=== PATIENT | male | born 1945 | race Caucasian/White ===

== ENCOUNTER 2017-10-25 09:08 | Day surgery (SDC) | payer MEDICARE, OTHER ==
[~2017-10-25] VITALS: Ht 167.6 cm; Wt 126.6 kg
[~2017-10-25 09:08] MED LIST: AMLO5 PO; FURO20 PO; HYDCHL25 PO; METF500C PO; Metoprolol Succ25 MG PO; NAPR250 PO; OXYB5ER PO; Omeprazole20 M1 PO; TERA5 PO; VENLAFAXINE HCL75 MG PO; Zestril40 MG
== END 2017-10-25 10:56 | disposition home or self-care (01) ==
LOC: ORSCSDS 09:08
PROVIDERS: Anesthesiology
PROC: 3E0R33Z Introduction of Anti-inflammatory into Spinal Canal, Percutaneous Approach (ICD-10-PCS; principal; 2017-10-25 10:45)
DX: M51.16 Intervertebral disc disorders with radiculopathy, lumbar region (principal); K21.9 Gastro-esophageal reflux disease without esophagitis; E11.9 Type 2 diabetes mellitus without complications; I10 Essential (primary) hypertension; F32.9 Major depressive disorder, single episode, unspecified; H40.9 Unspecified glaucoma; E66.9 Obesity, unspecified; Z68.42 Body mass index [BMI] 45.0-49.9, adult; F17.210 Nicotine dependence, cigarettes, uncomplicated; Z79.899 Other long term (current) drug therapy
CPT/HCPCS: J1040

== ENCOUNTER 2018-03-18 10:01 | Day surgery (SDC) | payer MEDICARE, OTHER ==
[~2018-03-18] VITALS: Ht 167.6 cm; Wt 121.7 kg
[2018-03-18] MEDS ORDERED: METO25ER (10:37)
== END 2018-03-18 11:55 | disposition home or self-care (01) ==
LOC: ORSCSDS 10:01
PROVIDERS: Anesthesiology
PROC: 3E0R33Z Introduction of Anti-inflammatory into Spinal Canal, Percutaneous Approach (ICD-10-PCS; principal; 2018-03-18 11:30)
DX: M51.16 Intervertebral disc disorders with radiculopathy, lumbar region (principal); I10 Essential (primary) hypertension; F32.9 Major depressive disorder, single episode, unspecified; E11.9 Type 2 diabetes mellitus without complications; E66.01 Morbid (severe) obesity due to excess calories; Z87.891 Personal history of nicotine dependence; Z68.41 Body mass index [BMI] 40.0-44.9, adult; Z79.899 Other long term (current) drug therapy
CPT/HCPCS: J1040; J2001

== ENCOUNTER 2018-10-28 10:07 | Day surgery (SDC) | payer MEDICARE, OTHER ==
[~2018-10-28] VITALS: Ht 167.6 cm; Wt 107.9 kg
[~2018-10-28 10:07] MED LIST changes: +METO25ER
== END 2018-10-28 11:42 | disposition home or self-care (01) ==
LOC: ORSCSDS 10:07
PROVIDERS: Anesthesiology
PROC: 3E0R33Z Introduction of Anti-inflammatory into Spinal Canal, Percutaneous Approach (ICD-10-PCS; principal; 2018-10-28 11:30)
DX: M51.16 Intervertebral disc disorders with radiculopathy, lumbar region (principal); I10 Essential (primary) hypertension; K21.9 Gastro-esophageal reflux disease without esophagitis; Z79.899 Other long term (current) drug therapy; E66.9 Obesity, unspecified; Z68.38 Body mass index [BMI] 38.0-38.9, adult; F17.210 Nicotine dependence, cigarettes, uncomplicated
CPT/HCPCS: J1040

== ENCOUNTER 2019-03-23 20:15 | Emergency (ER) | payer MEDICARE, OTHER ==
[~2019-03-23] VITALS: Ht 167.6 cm; Wt 106.6 kg
[2019-03-23 20:45] LABS: BASOPHILS ABSOLUTE AUTO 0.03 K/mm3 (0.00-0.23); BASOPHILS PERCENT AUTO 0 % (0-2); EOSINOPHILS ABSOLUTE AUTO 0.22 K/mm3 (0.00-0.68); EOSINOPHILS PERCENT AUTO 3 % (0-6); Hematocrit 40.1 % (37.0-53.0); Hemoglobin 13.4 g/dL (13.5-17.5); IMMATURE GRAN ABSOLUTE AUTO 0.01 K/mm3 (0.00-0.10); IMMATURE GRAN PERCENT AUTO 0 % (0-1); LYMPHOCYTES PERCENT AUTO 49 % (21-46); MONOCYTES ABSOLUTE AUTO 0.55 K/mm3 (0.16-1.47); MONOCYTES PERCENT AUTO 8 % (4-13); Mean Corpuscular HGB 32.4 pg (26.0-34.0); Mean Corpuscular HGB Conc 33.4 g/dL (31.5-36.5); Mean Corpuscular Volume 97 fL (80-100); NEUTROPHILS ABSOLUTE AUTO 2.86 K/mm3 (1.96-9.15); NEUTROPHILS PERCENT AUTO 40 % (41-73); Platelet Count 144 K/mm3 (150-400); RDW Coefficient Variation 14.1 % (11.7-14.2); RDW Standard Deviation 49.7 fL (35.1-46.3); Red Blood Cell Count 4.14 M/mm3 (4.30-5.90); White Blood Cell Count 7.17 K/mm3 (4.00-11.30)
[2019-03-23 21:00] LABS: Alanine Aminotransfer (ALT/SGP 49 U/L (12-78); Albumin, Blood 3.8 g/dL (3.4-5.0); Albumin/Globulin Ratio 1.1 (0.8-1.8); Alk Phos 104 U/L (50-136); Anion Gap 10 mmol/L (6-16); Aspartate Aminotrans (AST/SGOT 36 U/L (12-37); Bilirubin, Total 0.3 mg/dL (0.1-1.0); Blood Urea Nitrogen 20 mg/dL (8-24); Bun/Creatinine Ratio 21.3 (12.0-20.0); CO2, Blood 25 mmol/L (21-32); Chloride, Blood 108 mmol/L (98-108); Creatinine, Blood 0.94 mg/dL (0.60-1.20); Globulin, Blood 3.6 g/dL (2.2-4.0); Glomerular Filtration Rate >60 (60-); Glucose, Blood 117 mg/dL (70-99); Sodium, Blood 143 mmol/L (136-145); Total Protein, Blood 7.4 g/dL (6.4-8.2)
== END 2019-03-23 22:57 | disposition short-term general hospital (02) ==
LOC: ER 20:15
PROVIDERS: Emergency Medicine
DX: S00.81XA Abrasion of other part of head, initial encounter (principal); M62.81 Muscle weakness (generalized); Z87.891 Personal history of nicotine dependence; Z88.6 Allergy status to analgesic agent; Z79.899 Other long term (current) drug therapy; Z79.84 Long term (current) use of oral hypoglycemic drugs; W10.9XXA Fall (on) (from) unspecified stairs and steps, initial encounter
CPT/HCPCS: 70450; 71045; 72125; 80053; 85025; 93005; 93010; 96374; 99285-25; J1100

== ENCOUNTER 2019-04-18 11:10 | Emergency (ER) | payer MEDICARE ==
[~2019-04-18] VITALS: Ht 177.8 cm; Wt 99.8 kg
[2019-04-18] MEDS ORDERED: LIDO700A20 TOP (11:18)
[2019-04-18] MEDS ORDERED: MODA200 PT (11:19)
[2019-04-18] MEDS ORDERED: OMEPRAZOLE20 MG PT (11:19)
[2019-04-18] MEDS ORDERED: VENL37.5ER PT (11:20)
[2019-04-18] MEDS ORDERED: LISI20 PT (11:20)
[2019-04-18] MEDS ORDERED: PROB500 PT (11:20)
[2019-04-18] MEDS ORDERED: BACL10 PT (11:21)
[2019-04-18] MEDS ORDERED: Humalog100 UNIT/1 (11:21)
[2019-04-18] MEDS ORDERED: HYDR1TAB94 PT (11:22)
[2019-04-18] MEDS ORDERED: ONDA4 PT (11:22)
== END 2019-04-18 14:00 | disposition home or self-care (01) ==
LOC: ER 11:10
DX: K94.23 Gastrostomy malfunction (principal); Z87.891 Personal history of nicotine dependence; Z88.8 Allergy status to other drugs, medicaments and biological substances; Z79.899 Other long term (current) drug therapy; Z79.4 Long term (current) use of insulin
CPT/HCPCS: 74150; 76000; 99284-25; Q9963

== ENCOUNTER 2019-04-23 15:29 | Observation (INO) | payer MEDICARE ==
[~2019-04-23] VITALS: Ht 167.6 cm; Wt 97.2 kg
[~2019-04-23 15:29] MED LIST changes: +BACL10 PT; +HYDR1TAB94 PT; +Humalog100 UNIT/1; +LIDO700A20 TOP; +LISI20 PT; +MODA200 PT; +OMEPRAZOLE20 MG PT; +ONDA4 PT; +PROB500 PT; +VENL37.5ER PT
[2019-04-23 19:26] LABS: BASOPHILS ABSOLUTE AUTO 0.05 K/mm3 (0.00-0.23); BASOPHILS PERCENT AUTO 1 % (0-2); EOSINOPHILS PERCENT AUTO 6 % (0-6); Hematocrit 43.2 % (37.0-53.0); Hemoglobin 14.1 g/dL (13.5-17.5); IMMATURE GRAN ABSOLUTE AUTO 0.04 K/mm3 (0.00-0.10); IMMATURE GRAN PERCENT AUTO 1 % (0-1); LYMPHOCYTES ABSOLUTE AUTO 2.14 K/mm3 (0.84-5.20); LYMPHOCYTES PERCENT AUTO 31 % (21-46); MONOCYTES ABSOLUTE AUTO 0.55 K/mm3 (0.16-1.47); MONOCYTES PERCENT AUTO 8 % (4-13); Mean Corpuscular HGB Conc 32.6 g/dL (31.5-36.5); Mean Corpuscular Volume 98 fL (80-100); NEUTROPHILS ABSOLUTE AUTO 3.77 K/mm3 (1.96-9.15); NEUTROPHILS PERCENT AUTO 54 % (41-73); Platelet Count 153 K/mm3 (150-400); RDW Coefficient Variation 14.6 % (11.7-14.2); RDW Standard Deviation 52.4 fL (35.1-46.3); Red Blood Cell Count 4.41 M/mm3 (4.30-5.90); White Blood Cell Count 6.95 K/mm3 (4.00-11.30)
[2019-04-23 20:45] LABS: Alanine Aminotransfer (ALT/SGP 155 U/L (12-78); Albumin/Globulin Ratio 0.6 (0.8-1.8); Alk Phos 252 U/L (50-136); Anion Gap 5 mmol/L (6-16); Aspartate Aminotrans (AST/SGOT 84 U/L (12-37); Bilirubin, Total 0.7 mg/dL (0.1-1.0); Blood Urea Nitrogen 12 mg/dL (8-24); Bun/Creatinine Ratio 22.3 (12.0-20.0); CO2, Blood 27 mmol/L (21-32); Calcium, Blood 9.1 mg/dL (8.5-10.1); Chloride, Blood 105 mmol/L (98-108); Creatinine, Blood 0.54 mg/dL (0.60-1.20); Globulin, Blood 4.7 g/dL (2.2-4.0); Glomerular Filtration Rate >60 (60-); Glucose, Blood 102 mg/dL (70-99); Potassium, Blood 4.7 mmol/L (3.5-5.5); Sodium, Blood 137 mmol/L (136-145); Total Protein, Blood 7.7 g/dL (6.4-8.2)
--- NOTE | 2019-04-24 02:00 | NUR ---
patient very agitated. yelling out and pulling at aspen collar, IV and abdominal binder. appears unable to comprehend simple commands. call placed to hospitalist.. orders received for vest and soft wrist restraints as well as dose of IV dilaudid incase patients agitation is related to pain.
[2019-04-24] MEDS ORDERED: LISI20 PO (05:02)
[2019-04-24] MEDS ORDERED: MODA200 PT (05:04)
[2019-04-24] MEDS ORDERED: OMEPRAZOLE20 MG PT (05:05)
[2019-04-24] MEDS ORDERED: METF500 PO (05:08)
--- NOTE | 2019-04-24 14:24 | NUR ---
PATIENT IS OUT OF HIS ROOM. IN DAY SURGERY FOR PEG TUBE PLACEMENT
--- NOTE | 2019-04-24 15:09 | NUR ---
"DAY SURGERY RN | TO OR REPORT TO STEPHAN LUCIANO. BOTH DOCTORS AND OFFICE MOVER HAVE SEEN. NO ISSUES."
--- NOTE | 2019-04-24 16:31 | NUR ---
COMES TO PACU WITH TRUVUE BOOTS ON BILAT C COLAR IN PLACE PT MOVING ALL EXTREMITIES ATTENDS IN PLACE
--- NOTE | 2019-04-24 18:09 | NUR ---
PATIENT HAD A PEG TUBE PLACED TODAY. BINDER IS IN PLACE. NO COMPLAINTS OF PAIN. THE PATIENT'S IS AT THE BEDSIDE. DRESSING OVER THE PEG TUBE HAS A SMALL AMOUNT OF BLOOD. PATIENT IS AWAKE. HE HAS BEEN VOIDING IN HIS ATTENDS. ASKED TO USE THE URINAL ONCE. WILL CONTINUE TO MONITOR
--- NOTE | 2019-04-25 07:50 | NUR ---
Shift Summary: Patient slept intermittently between cares. Repositioned q2 and changed several incontinent briefs.
--- NOTE | 2019-04-25 07:51 | NUR ---
Maintained ABD binder overnight. Patient attempted to remove it several times.
--- NOTE | 2019-04-25 09:28 | NUR ---
PATIENT DID NOT EAT BREAKFAST THIS SHIFT DUE TO BEING NPO AT THIS TIME.
--- NOTE | 2019-04-25 19:09 | NUR ---
SHIFT SUMMARY: NO ACUTE CHANGES TO REPORT THIS SHIFT. PT ALERT; COOPERATIVE WITH CARE. CERVICAL COLLAR WHEN MOVING PATIENT. PEG TUBE SUCCESSFULLY PLACED AND ABLE TO BE USED; FEEDING TO BE STARTED TONIGHT. EXPECTED TO BE DISCHARGED TO [facility] TOMORROW. REPORT GIVEN TO ONCOMING RN.
--- NOTE | 2019-04-26 05:06 | NUR ---
Shift Summary Patient slept intermittently between cares with frequent calls for "help". Tolerated tube feeding start tolerated without issue and with low residuals. Repositioned overnight q2h.
[2019-04-26 09:53] LABS: Magnesium, Blood 1.6 mg/dL (1.6-2.4)
[2019-04-26 09:54] LABS: Alanine Aminotransfer (ALT/SGP 250 U/L (12-78); Albumin/Globulin Ratio 0.7 (0.8-1.8); Alk Phos 287 U/L (50-136); Anion Gap 8 mmol/L (6-16); Aspartate Aminotrans (AST/SGOT 146 U/L (12-37); Bilirubin, Total 0.4 mg/dL (0.1-1.0); Blood Urea Nitrogen 20 mg/dL (8-24); Bun/Creatinine Ratio 36.6 (12.0-20.0); CO2, Blood 25 mmol/L (21-32); Calcium, Blood 8.8 mg/dL (8.5-10.1); Chloride, Blood 106 mmol/L (98-108); Creatinine, Blood 0.55 mg/dL (0.60-1.20); Globulin, Blood 4.5 g/dL (2.2-4.0); Glomerular Filtration Rate >60 (60-); Glucose, Blood 134 mg/dL (70-99); Potassium, Blood 4.2 mmol/L (3.5-5.5); Sodium, Blood 139 mmol/L (136-145); Total Protein, Blood 7.5 g/dL (6.4-8.2)
[2019-04-26 10:24] LABS: BASOPHILS ABSOLUTE AUTO 0.05 K/mm3 (0.00-0.23); BASOPHILS PERCENT AUTO 1 % (0-2); EOSINOPHILS ABSOLUTE AUTO 0.41 K/mm3 (0.00-0.68); EOSINOPHILS PERCENT AUTO 6 % (0-6); Hematocrit 39.7 % (37.0-53.0); Hemoglobin 13.1 g/dL (13.5-17.5); IMMATURE GRAN ABSOLUTE AUTO 0.02 K/mm3 (0.00-0.10); IMMATURE GRAN PERCENT AUTO 0 % (0-1); LYMPHOCYTES ABSOLUTE AUTO 1.84 K/mm3 (0.84-5.20); LYMPHOCYTES PERCENT AUTO 27 % (21-46); MONOCYTES ABSOLUTE AUTO 0.57 K/mm3 (0.16-1.47); MONOCYTES PERCENT AUTO 8 % (4-13); Mean Corpuscular HGB 32.6 pg (26.0-34.0); Mean Corpuscular Volume 99 fL (80-100); Mean Platelet Volume 11.2 fL (9.1-12.4); NEUTROPHILS ABSOLUTE AUTO 3.98 K/mm3 (1.96-9.15); NEUTROPHILS PERCENT AUTO 58 % (41-73); Platelet Count 153 K/mm3 (150-400); RDW Coefficient Variation 14.6 % (11.7-14.2); RDW Standard Deviation 52.9 fL (35.1-46.3); Red Blood Cell Count 4.02 M/mm3 (4.30-5.90); White Blood Cell Count 6.87 K/mm3 (4.00-11.30)
--- NOTE | 2019-04-26 14:58 | NUR ---
PATIENT DISCHARGE: PATIENT DISCHARGED TO [facility] THIS SHIFT. MEDICATION RECONCILIATION COMPLETED; HARD SCRIPT PROVIDED FOR CONTROLLED SUBSTANCE. PATIENT DEPARTED MEDICAL FLOOR AT 1430 VIA [facility] WITH ARCHA[facility]. REPORT CALLED TO MATT GARVEY, AT [facility].
== END 2019-04-26 14:31 ==
LOC: ER 15:29 → MEDS 15:30 → ER 21:45 → MEDS 21:45
PROVIDERS: Emergency Medicine; Family Medicine; Surgery; ADMIT Hospitalist
PROC: 0DH63UZ Insertion of Feeding Device into Stomach, Percutaneous Approach (ICD-10-PCS; principal; 2019-04-24 14:00)
DX: K94.23 Gastrostomy malfunction (principal); I10 Essential (primary) hypertension; E11.9 Type 2 diabetes mellitus without complications; S06.5X9D Traumatic subdural hemorrhage with loss of consciousness of unspecified duration, subsequent encounter; R94.5 Abnormal results of liver function studies; F32.9 Major depressive disorder, single episode, unspecified; K21.9 Gastro-esophageal reflux disease without esophagitis; G47.33 Obstructive sleep apnea (adult) (pediatric); Z79.4 Long term (current) use of insulin; Z88.6 Allergy status to analgesic agent; Z88.8 Allergy status to other drugs, medicaments and biological substances; Z88.5 Allergy status to narcotic agent; Z91.048 Other nonmedicinal substance allergy status; Z79.899 Other long term (current) drug therapy; Z99.89 Dependence on other enabling machines and devices
CPT/HCPCS: 36415; 43762; 80053; 82947; 83735; 84100; 85025; 92610; 94762; 96360-59; 96361-59; 96374; 96376; 97110; 97162; 97530; 99284-25; G0378; J0330; J0690; J1100; J1815; J2001; J2370; J2405; J2704; J3010; J7030; J7120

== ENCOUNTER 2019-08-20 03:04 | Inpatient (IN) | payer MEDICARE, OTHER ==
[~2019-08-20] VITALS: Ht 167.6 cm; Wt 93.1 kg
[~2019-08-20 03:04] MED LIST changes: +CHLO25B PO; +KETO10 PO; +LISI20 PO; +METF500 PO
[2019-08-20 03:31] LABS: BASOPHILS ABSOLUTE AUTO 0.02 K/mm3 (0.00-0.23); BASOPHILS PERCENT AUTO 0 % (0-2); EOSINOPHILS PERCENT AUTO 0 % (0-6); Hematocrit 38.8 % (37.0-53.0); Hemoglobin 13.1 g/dL (13.5-17.5); IMMATURE GRAN ABSOLUTE AUTO 0.04 K/mm3 (0.00-0.10); IMMATURE GRAN PERCENT AUTO 0 % (0-1); LYMPHOCYTES ABSOLUTE AUTO 0.72 K/mm3 (0.84-5.20); LYMPHOCYTES PERCENT AUTO 8 % (21-46); MONOCYTES ABSOLUTE AUTO 0.72 K/mm3 (0.16-1.47); MONOCYTES PERCENT AUTO 8 % (4-13); Mean Corpuscular HGB 33.6 pg (26.0-34.0); Mean Corpuscular HGB Conc 33.8 g/dL (31.5-36.5); Mean Corpuscular Volume 100 fL (80-100); Mean Platelet Volume 10.9 fL (9.1-12.4); NEUTROPHILS ABSOLUTE AUTO 8.01 K/mm3 (1.96-9.15); NEUTROPHILS PERCENT AUTO 84 % (41-73); Platelet Count 122 K/mm3 (150-400); RDW Coefficient Variation 14.8 % (11.7-14.2); RDW Standard Deviation 54.4 fL (35.1-46.3); White Blood Cell Count 9.51 K/mm3 (4.00-11.30)
[2019-08-20 03:44] LABS: Alanine Aminotransfer (ALT/SGP 40 U/L (12-78); Albumin, Blood 3.6 g/dL (3.4-5.0); Albumin/Globulin Ratio 0.9 (0.8-1.8); Alk Phos 123 U/L (50-136); Anion Gap 7 mmol/L (6-16); Aspartate Aminotrans (AST/SGOT 52 U/L (12-37); Blood Urea Nitrogen 31 mg/dL (8-24); Bun/Creatinine Ratio 29.5 (12.0-20.0); CO2, Blood 27 mmol/L (21-32); Chloride, Blood 104 mmol/L (98-108); Creatinine, Blood 1.05 mg/dL (0.60-1.20); Glomerular Filtration Rate >60 (60-); Glucose, Blood 138 mg/dL (70-99); Potassium, Blood 3.6 mmol/L (3.5-5.5); Sodium, Blood 138 mmol/L (136-145); Total Protein, Blood 7.6 g/dL (6.4-8.2)
[2019-08-20 07:55] LABS: Adenovirus Not Detected (NOT DETECT); Bordetella pertussis Not Detected (NOT DETECT); Coronavirus 229E Not Detected (NOT DETECT); Coronavirus HKU1 Not Detected (NOT DETECT); Coronavirus NL63 Not Detected (NOT DETECT); Coronavirus OC43 Not Detected (NOT DETECT); Human Metapneumovirus Not Detected (NOT DETECT); Human Rhinovirus/Enterovirus Not Detected (NOT DETECT); Influenza A Not Detected (NOT DETECT); Influenza A/2009-H1 Not Detected (NOT DETECT); Influenza A/H1 Not Detected (NOT DETECT); Influenza A/H3 Not Detected (NOT DETECT); Influenza B Not Detected (NOT DETECT); Parainfluenza Virus 1 Not Detected (NOT DETECT); Parainfluenza Virus 2 Not Detected (NOT DETECT); Parainfluenza Virus 3 Not Detected (NOT DETECT); Parainfluenza Virus 4 Not Detected (NOT DETECT); Respiratory Syncytial Virus Not Detected (NOT DETECT)
[2019-08-20 07:56] LABS: Chlamydophila pneumoniae Not Detected (NOT DETECT); Mycoplasma pneumoniae Not Detected (NOT DETECT)
[2019-08-20 08:48] LABS: Source, Urine Clean Catch
[2019-08-20 08:51] LABS: Bilirubin, Urine Neg (Neg); Blood, Urine 4+ (Neg); Glucose Qualitative, Urine Neg (Neg); Ketones, Urine Neg (Neg); Leukocyte Esterase, Urine 2+ (Neg); Nitrite, Urine Pos (Neg); Protein, Urine 2+ (Neg); Urobilinogen, Urine NORM (Normal)
[2019-08-20 09:06] LABS: Appearance, Urine Hazy (Clear); Bacteria Few /hpf; Color, Urine Yellow (P-Yellow); Squamous Epithelial Cells Mod /hpf (Few); White Blood Cells, Urine 25-50 /hpf (0-5)
--- NOTE | 2019-08-20 18:41 | NUR ---
PT AOX4 AND COOPERATIVE OF CARE. PT HAS BEEN RESTING IN BED UPON ARRIVAL. PT CALLS APPROPRIATELY. PT HAS HAD TO VOID FREQUENTLY BEING BOTH CONTENTENT AND INCONTENT. PT HAS R SIDED WEAKNESS DUE TO OLD STROKE, BUT PT STATES HE HAD MORE USE OF HIS R ARM YESTERDAY AND HE WAS ABLE TO STAND AND USE WALKER ON HIS OWN. TODAY HE HAS PAIN FROM R SHOULDER DOWN AND FINGERS EVEN HURT TO MOVE ON R HAND. PT VERY LIMITED ON R SIDE MOVEMENT AND VERY WEAK SOAP PRESS FEEDER ON R SIDE. PT HAS HAD A FEVER WHICH DR MAYA HAS BEEN NOTFIED AND CHANGES MADE TO EMAR. WILL CONTINUE TO MONITOR.
--- NOTE | 2019-08-20 21:37 | NUR ---
BLOOD CULTURE RESULTS RECEIVED CALL FROM LAB. BLOOD CULTURE HAS GRAM NEGATIVE BACTERIA. I CALLED RAYRAY IN PHARMACY TO ASK IF ORDERED DAILY IV ROCEPHIN IS ENOUGH COVERAGE FOR GRAM NEGATIVE BACTERIA. HE INFORMED ME THAT ROCEPHIN WOULD COVER SOME, BUT NOT ALL TYPES OF GRAM NEGATIVE BACTERIA. HE STATED THAT UNTIL LAB COULD IDENTIFY THE SPECIFIC TYPE OF BACTERIA, THE ORDERED DAILY ROCEPHIN WOULD BE ADEQUATE IF THE CIVIL DRAFTER CHOOSES. I WILL INFORM THE CIVIL DRAFTER OF THIS WITH THE NEXT HOSPITALIST CALL. I HAVE INFORMED CHARGE.
--- NOTE | 2019-08-21 05:09 | NUR ---
SHIFT SUMMARY ADMITTED FOR R SIDED WEAKNESS. FULL CODE. BLOOD CULTURES SHOW GRAM NEG BACTERIA. PT DOES HAVE UTI. RT SIDE HEMIPLEGIA. USES FWW @ HOME. BEDREST HERE. WEAKNESS, I HAVE BEEN FEEDING HIM. LOW GRADE FEVERS, CHASING W/TYLENOL. TELEMETRY: NSR @ 92 BPM. NYSTATIN POWDER FOR GROIN RASH. RA, A&O X4, ACHS. HX: C-3 QUADRIPLEGIA- POST CERVICAL DISKECTOMY PROCEDURE, BONE GRAFT AT [facility]. SUBDURAL HEMATOMA, GERD, WALKER, FRONTALIS MENINGIOMA, DM2, HTN, DEPRESSION. RECENT[facility] HOME WITH ON 07/28/2019
--- NOTE | 2019-08-21 17:53 | NUR ---
PT AOX4 AND COOPERATIVE OF CARE. PT WAS VERY SLEEPY AT THE BEGINNING OF SHIFT, BUT WAS AROUSABLE. PT HAD FEVER UP TO 100.00 ON LAST VITALS AND WAS GIVEN TYLENOL PER EMAR. PT SEEMS TO VOID FREQUENTLY AND HAS A LOT OF INCONTENCE. PT WORKED WITH PHYSICAL THERAPY AND WAS UP IN CHAIR, BUT WAS A HEAVY STAND AND PIVOT BACK TO BED. NO DISTRESS NOTED WILL CONTINUE TO MONITOR.
--- NOTE | 2019-08-22 06:34 | NUR ---
SHIFT SUMMARY PT IS A 74 Y/O MALE, ADMITTED FOR R-SIDE WEAKNESS. HE IS A&O X 3, AND CURRENTLY ON BEDREST. HE WAS MEDICATED ONCE FOR NECK PAIN WITH PRN TYLENOL. HE ALSO C/O HEAT FLASHES DURING THE NIGHT. TEMPERATURE REMAINED NORMAL, WITH NO FEVER NOTED. VITAL SIGNS STABLE. NO COMPLAINTS OF NAUSEA OR SOB. NO ACUTE CHANGES IN PT CONDITION NOTED. WILL CONTINUE TO MONITOR AND TREAT PER EMAR UNTIL HAND OFF TO DAY SHIFT RN.
[2019-08-22] MEDS ORDERED: TRAM50 PO (14:32)
[2019-08-22] MEDS ORDERED: CEFD300 PO (14:33)
--- NOTE | 2019-08-22 16:44 | NUR ---
DISCHARGE DISCHARGE MEDICATIONS AND INSTRUCTIONS EXPLAINED TO PATIENT AND PATIENT'S . THEY STATED UNDERSTANDING. [facility] TO CALL PATIENT AT HOME WITH FOLLOW UP APPOINTMENT. PATIENT HAS SELECTED [facility]. IV REMOVED WITHOUT DIFFICULTY. PATIENT'S TOOK BELONGINGS HOME. PATIENT TRANSFERED HOME VIA WHEELCHAIR TRANSPORT.
== END 2019-08-22 16:30 | disposition home health service (06) | DRG 872 ==
LOC: ER 03:04 → MEDS 03:05
PROVIDERS: Emergency Medicine; ADMIT Internal Medicine
DX: A41.51 Sepsis due to Escherichia coli [E. coli] (principal); G81.91 Hemiplegia, unspecified affecting right dominant side; N39.0 Urinary tract infection, site not specified; R53.1 Weakness; F32.9 Major depressive disorder, single episode, unspecified; E11.9 Type 2 diabetes mellitus without complications; R53.81 Other malaise; R32 Unspecified urinary incontinence; K21.9 Gastro-esophageal reflux disease without esophagitis; G47.33 Obstructive sleep apnea (adult) (pediatric)
CPT/HCPCS: 0099U; 36415; 51701; 70450; 70496; 70498; 71045; 72141; 73030; 80053; 81001; 82947; 83605; 85025; 87040; 87077; 87086; 87186; 92610; 93005; 93010; 96360-59; 96361-59; 96366; 96372; 96375; 97110; 97112; 97162; 97167; 99285-25; A9270; G0378; J0696; J1650; J2060; J7030; Q9967

== ENCOUNTER → 2019-09-03 | Outpatient (CLI) | payer MEDICARE, OTHER ==
[~2019-09-03] MED LIST changes: +CEFD300 PO; +TRAM50 PO
== END | disposition home or self-care (01) ==
LOC: LAB SHORT 11:13 → PLD 11:13
DX: D48.5 Neoplasm of uncertain behavior of skin (principal)
CPT/HCPCS: 88305

== ENCOUNTER → 2020-05-18 | Outpatient (CLI) | payer MEDICARE, OTHER ==
[~2020-05-18] MED LIST changes: +AZIT250 PO; +POTA10T PO
== END | disposition home or self-care (01) ==
LOC: PLD 11:36 → LAB SHORT 11:36
DX: D48.5 Neoplasm of uncertain behavior of skin (principal)
CPT/HCPCS: 88305

== ENCOUNTER 2020-05-19 17:04 | Inpatient (IN) | payer MEDICARE, OTHER ==
[~2020-05-19] VITALS: Ht 167.6 cm; Wt 112.4 kg
[~2020-05-19 17:04] MED LIST changes: -AZIT250 PO; -POTA10T PO
[2020-05-19 18:08] LABS: BASOPHILS ABSOLUTE AUTO 0.03 K/mm3 (0.00-0.23); BASOPHILS PERCENT AUTO 0 % (0-2); EOSINOPHILS ABSOLUTE AUTO 0.06 K/mm3 (0.00-0.68); EOSINOPHILS PERCENT AUTO 1 % (0-6); Hematocrit 39.1 % (37.0-53.0); IMMATURE GRAN ABSOLUTE AUTO 0.03 K/mm3 (0.00-0.10); IMMATURE GRAN PERCENT AUTO 0 % (0-1); LYMPHOCYTES ABSOLUTE AUTO 0.98 K/mm3 (0.84-5.20); LYMPHOCYTES PERCENT AUTO 10 % (21-46); MONOCYTES ABSOLUTE AUTO 0.67 K/mm3 (0.16-1.47); MONOCYTES PERCENT AUTO 7 % (4-13); Mean Corpuscular HGB 32.1 pg (26.0-34.0); Mean Corpuscular HGB Conc 33.2 g/dL (31.5-36.5); Mean Corpuscular Volume 97 fL (80-100); Mean Platelet Volume 10.7 fL (9.1-12.4); NEUTROPHILS ABSOLUTE AUTO 7.66 K/mm3 (1.96-9.15); NEUTROPHILS PERCENT AUTO 81 % (41-73); Platelet Count 142 K/mm3 (150-400); RDW Coefficient Variation 13.6 % (11.7-14.2); RDW Standard Deviation 48.4 fL (35.1-46.3); Red Blood Cell Count 4.05 M/mm3 (4.30-5.90); White Blood Cell Count 9.43 K/mm3 (4.00-11.30)
[2020-05-19 18:53] LABS: Alanine Aminotransfer (ALT/SGP 35 U/L (12-78); Albumin, Blood 3.7 g/dL (3.4-5.0); Alk Phos 103 U/L (50-136); Anion Gap 7 mmol/L (6-16); Aspartate Aminotrans (AST/SGOT 32 U/L (12-37); Bilirubin, Total 0.7 mg/dL (0.1-1.0); Blood Urea Nitrogen 22 mg/dL (8-24); Bun/Creatinine Ratio 21.6 (12.0-20.0); CO2, Blood 25 mmol/L (21-32); Chloride, Blood 111 mmol/L (98-108); Creatinine, Blood 1.02 mg/dL (0.60-1.20); Globulin, Blood 3.8 g/dL (2.2-4.0); Glomerular Filtration Rate >60 (60-); Glucose, Blood 162 mg/dL (70-99); Potassium, Blood 3.8 mmol/L (3.5-5.5); Sodium, Blood 143 mmol/L (136-145); Total Protein, Blood 7.5 g/dL (6.4-8.2)
[2020-05-19 19:15] LABS: Source, Urine Catheter
[2020-05-19 19:19] LABS: Bilirubin, Urine Neg (Neg); Blood, Urine 5+ (Neg); Glucose Qualitative, Urine Neg (Neg); Ketones, Urine Neg (Neg); Leukocyte Esterase, Urine Neg (Neg); Nitrite, Urine Neg (Neg); Protein, Urine 4+ (Neg); Specific Gravity, Urine 1.015 (1.003-1.022); Urobilinogen, Urine 1+ (Normal)
[2020-05-19 19:30] LABS: Amorphous Heavy (0-Heavy); Appearance, Urine Hazy (Clear); Bacteria Rare /hpf; Color, Urine Yellow (P-Yellow); Squamous Epithelial Cells Few /hpf (Few); White Blood Cells, Urine Not Seen /hpf (0-5)
[2020-05-19 20:26] LABS: Adenovirus Not Detected (NOT DETECT); Bordetella pertussis Not Detected (NOT DETECT); Chlamydophila pneumoniae Not Detected (NOT DETECT); Coronavirus 229E Not Detected (NOT DETECT); Coronavirus HKU1 Not Detected (NOT DETECT); Coronavirus NL63 Not Detected (NOT DETECT); Coronavirus OC43 Not Detected (NOT DETECT); Human Metapneumovirus Not Detected (NOT DETECT); Human Rhinovirus/Enterovirus Not Detected (NOT DETECT); Influenza A/2009-H1 Not Detected (NOT DETECT); Influenza A/H1 Not Detected (NOT DETECT); Influenza A/H3 Not Detected (NOT DETECT); Influenza B Not Detected (NOT DETECT); Mycoplasma pneumoniae Not Detected (NOT DETECT); Parainfluenza Virus 1 Not Detected (NOT DETECT); Parainfluenza Virus 2 Not Detected (NOT DETECT); Parainfluenza Virus 3 Not Detected (NOT DETECT); Parainfluenza Virus 4 Not Detected (NOT DETECT); Respiratory Syncytial Virus Not Detected (NOT DETECT); SARS-Cov-2 (COVID-19), BioFire Not Detected (NOT DETECT)
[2020-05-20 01:56] LABS: BASOPHILS ABSOLUTE AUTO 0.03 K/mm3 (0.00-0.23); BASOPHILS PERCENT AUTO 0 % (0-2); EOSINOPHILS ABSOLUTE AUTO 0.07 K/mm3 (0.00-0.68); EOSINOPHILS PERCENT AUTO 1 % (0-6); Hematocrit 36.6 % (37.0-53.0); Hemoglobin 12.2 g/dL (13.5-17.5); IMMATURE GRAN ABSOLUTE AUTO 0.02 K/mm3 (0.00-0.10); IMMATURE GRAN PERCENT AUTO 0 % (0-1); LYMPHOCYTES ABSOLUTE AUTO 2.15 K/mm3 (0.84-5.20); LYMPHOCYTES PERCENT AUTO 20 % (21-46); MONOCYTES ABSOLUTE AUTO 0.88 K/mm3 (0.16-1.47); MONOCYTES PERCENT AUTO 8 % (4-13); Mean Corpuscular HGB 32.4 pg (26.0-34.0); Mean Corpuscular HGB Conc 33.3 g/dL (31.5-36.5); Mean Corpuscular Volume 97 fL (80-100); Mean Platelet Volume 10.4 fL (9.1-12.4); NEUTROPHILS ABSOLUTE AUTO 7.55 K/mm3 (1.96-9.15); NEUTROPHILS PERCENT AUTO 71 % (41-73); Platelet Count 134 K/mm3 (150-400); RDW Coefficient Variation 13.8 % (11.7-14.2); RDW Standard Deviation 49.1 fL (35.1-46.3); Red Blood Cell Count 3.77 M/mm3 (4.30-5.90)
[2020-05-20 02:11] LABS: Anion Gap 7 mmol/L (6-16); Blood Urea Nitrogen 21 mg/dL (8-24); Bun/Creatinine Ratio 20.4 (12.0-20.0); CO2, Blood 25 mmol/L (21-32); Calcium, Blood 8.1 mg/dL (8.5-10.1); Chloride, Blood 111 mmol/L (98-108); Creatinine, Blood 1.03 mg/dL (0.60-1.20); Glomerular Filtration Rate >60 (60-); Glucose, Blood 111 mg/dL (70-99); Potassium, Blood 3.4 mmol/L (3.5-5.5); Sodium, Blood 143 mmol/L (136-145)
--- NOTE | 2020-05-20 18:38 | NUR ---
HE HAS BEEN ADMITTED TO ROOM 313 FROM THE ED TODAY. HIS BROUGHT IN HIS HEARING AIDS AND CPAP MACHINE THIS AFTERNOON. HE HAS DIFFICULTY FEEDING HIMSELF BUT SAYS HE FEEDS HIMSELF AT HOME. HE IS NORMALLY RT. HANDED BUT HAD A STROKE IN THE PAST MAKING MOST THINGS DIFFICULT. HIS GREATEST DEFICIT IS THE USE OF HIS R ARM. HE HAS RHONCHI T/O. NO C/O SOB. NO FEVER. HE HAS BEEN BOTH CONTINENT AND INCONTINENT OF URINE.
--- NOTE | 2020-05-20 19:15 | NUR ---
ASSUMED CARE RECEIVED REPORT FROM MUSTAPHA LECHUGA. ASSUMED CARE OF PT. RESTING COMFORTABLY AT THIS TIME, NO S/S ACUTE DISTRESS NOTED. DENIES NEEDS. CALL LIGHT, POSSESSIONS IN REACH, BED IN LOW POSITION WITH ALARMS ON. TM.
[2020-05-21 05:25] LABS: BASOPHILS ABSOLUTE AUTO 0.03 K/mm3 (0.00-0.23); BASOPHILS PERCENT AUTO 0 % (0-2); EOSINOPHILS ABSOLUTE AUTO 0.15 K/mm3 (0.00-0.68); EOSINOPHILS PERCENT AUTO 2 % (0-6); Hematocrit 36.4 % (37.0-53.0); Hemoglobin 11.8 g/dL (13.5-17.5); IMMATURE GRAN ABSOLUTE AUTO 0.02 K/mm3 (0.00-0.10); IMMATURE GRAN PERCENT AUTO 0 % (0-1); LYMPHOCYTES ABSOLUTE AUTO 2.13 K/mm3 (0.84-5.20); LYMPHOCYTES PERCENT AUTO 24 % (21-46); MONOCYTES ABSOLUTE AUTO 0.79 K/mm3 (0.16-1.47); MONOCYTES PERCENT AUTO 9 % (4-13); Mean Corpuscular HGB 32.1 pg (26.0-34.0); Mean Corpuscular HGB Conc 32.4 g/dL (31.5-36.5); Mean Corpuscular Volume 99 fL (80-100); Mean Platelet Volume 10.7 fL (9.1-12.4); NEUTROPHILS ABSOLUTE AUTO 5.66 K/mm3 (1.96-9.15); NEUTROPHILS PERCENT AUTO 65 % (41-73); Platelet Count 139 K/mm3 (150-400); RDW Coefficient Variation 13.8 % (11.7-14.2); RDW Standard Deviation 50.8 fL (35.1-46.3); Red Blood Cell Count 3.68 M/mm3 (4.30-5.90); White Blood Cell Count 8.78 K/mm3 (4.00-11.30)
[2020-05-21 06:04] LABS: Anion Gap 6 mmol/L (6-16); Blood Urea Nitrogen 19 mg/dL (8-24); Bun/Creatinine Ratio 17.6 (12.0-20.0); CO2, Blood 25 mmol/L (21-32); Calcium, Blood 8.5 mg/dL (8.5-10.1); Chloride, Blood 111 mmol/L (98-108); Creatinine, Blood 1.08 mg/dL (0.60-1.20); Glomerular Filtration Rate >60 (60-); Glucose, Blood 95 mg/dL (70-99); Potassium, Blood 3.9 mmol/L (3.5-5.5); Sodium, Blood 142 mmol/L (136-145)
--- NOTE | 2020-05-21 07:06 | NUR ---
SHIFT SUMMARY PT HAS HAD NO ACUTE CHANGES IN CONDITION T/O NIGHT, WAS MONITORED EVERY 1-2 HOURS WITH NEEDS MET. VS REVIEWED. PT WORE CPAP T/O NIGHT, TOLERATED WELL. PT REMAINS ASLEEP AT THIS TIME. CALL LIGHT, POSSESSIONS IN REACH, BED IN LOW POSITION WITH ALARMS ON. REPORT GIVEN TO MUSTAPHA BHATIA.
--- NOTE | 2020-05-21 19:15 | NUR ---
ASSUMED CARE RECEIVED REPORT FROM MUSTAPHA BHATIA. ASSUMED CARE OF PT. NO ACUTE CHANGES REPORTED. PT RESTING COMFORTABLY, NO S/S ACUTE DISTRESS NOTED, RESPS EVEN AND UNLABORED. DENIES NEEDS. CALL LIGHT, POSSESSIONS IN REACH, BED IN LOW POSITION WITH ALARMS ON. WCTM.
--- NOTE | 2020-05-22 07:09 | NUR ---
SHIFT SUMMARY PT ASLEEP AT THIS TIME, NO S/S ACUTE DISTRESS NOTED. WAS MONITORED EVERY 1-2 HOURS WITH NEEDS MET. VS REVIEWED, STABLE. PT WORE CPAP T/O NIGHT, TOLERATED WELL. DENIES NEEDS. CALL LIGHT, POSSESSIONS IN REACH, BED IN LOW POSITION WITH ALARMS ON. REPORT GIVEN TO MUSTAPHA BHATIA.
[2020-05-22] MEDS ORDERED: AZIT250 PO (15:19)
[2020-05-22] MEDS ORDERED: POTA10T PO (15:20)
--- NOTE | 2020-05-22 16:07 | NUR ---
DISCHARGE DISCHARGE INSTRUCTIONS, MEDICATION LIST, FOLLOW UP APPOINTMENTS AND HOME HEALTH REVIEWED WITH PT AND VIA TELEPHONE HIS SPOUSE. QUESTIONS/CONCERNS ANSWERED. UNDERSTANDING OF DISCHARGE INSTRUCTIONS VERBALLY INDICATED BY PT AND SPOUSE. INFORMATICS PHARMACIST ASSISTING PT TO DRESS AND WILL ESCORT PT OUT VIA W/C WHEN SPOUSE ARRIVES. WILL CONTINUE TO MONITOR UNTIL DISCHARGE
--- NOTE | 2020-05-22 16:33 | NUR ---
DISCHARGE PT ESCORTED OUT VIA W/C ESCORTED BY REGINALD
== END 2020-05-22 16:32 | disposition home or self-care (01) | DRG 871 ==
LOC: ER 17:04 → ERHOLD 17:05 → MEDS 05-20 12:13
PROVIDERS: Emergency Medicine; Internal Medicine; ADMIT Family Medicine
DX: A41.9 Sepsis, unspecified organism (principal); J18.9 Pneumonia, unspecified organism; G82.50 Quadriplegia, unspecified; J96.91 Respiratory failure, unspecified with hypoxia; G81.91 Hemiplegia, unspecified affecting right dominant side; G47.33 Obstructive sleep apnea (adult) (pediatric); D69.6 Thrombocytopenia, unspecified; Z20.828 Contact with and (suspected) exposure to other viral communicable diseases; D63.8 Anemia in other chronic diseases classified elsewhere; E11.9 Type 2 diabetes mellitus without complications; F32.9 Major depressive disorder, single episode, unspecified; H91.90 Unspecified hearing loss, unspecified ear; Z79.84 Long term (current) use of oral hypoglycemic drugs; Z87.891 Personal history of nicotine dependence
CPT/HCPCS: 0202U; 36415; 51701; 71045; 71260; 80048; 80053; 81001; 82947; 83605; 84145; 85025; 87040; 93005; 93010; 93971; 96365; 96367; 97110; 97161; 97530; 99285-25; A9270; J0456; J0696; J1650; J7030; J7050; Q2038; Q9967

== ENCOUNTER → 2020-06-13 | Outpatient (CLI) | payer MEDICARE, OTHER ==
[~2020-06-13] MED LIST changes: +AZIT250 PO; +POTA10T PO
== END | disposition home or self-care (01) ==
LOC: PLD 15:55 → LAB SHORT 15:55
DX: C44.310 Basal cell carcinoma of skin of unspecified parts of face (principal)
CPT/HCPCS: 88305

== ENCOUNTER → 2020-09-15 | Outpatient (CLI) | payer MEDICARE, OTHER | LOC: LAB 15:58 → LAB SHORT 15:58 | DX: D48.5 Neoplasm of uncertain behavior of skin (principal); C44.319 Basal cell carcinoma of skin of other parts of face; Z88.1 Allergy status to other antibiotic agents; Z88.5 Allergy status to narcotic agent; Z88.6 Allergy status to analgesic agent; Z88.8 Allergy status to other drugs, medicaments and biological substances | CPT/HCPCS: 88305 ==

== ENCOUNTER → 2020-09-27 | Outpatient (CLI) | payer MEDICARE, OTHER | END | disposition home or self-care (01) | LOC: PLD 08:34 → LAB SHORT 08:34 | DX: C44.310 Basal cell carcinoma of skin of unspecified parts of face (principal) | CPT/HCPCS: 88305 ==

== ENCOUNTER → 2021-03-27 | Outpatient (CLI) | payer MEDICARE, OTHER | LOC: LAB SHORT 12:10 → LAB 12:10 | DX: D48.5 Neoplasm of uncertain behavior of skin (principal); Z88.5 Allergy status to narcotic agent; Z88.6 Allergy status to analgesic agent; Z91.048 Other nonmedicinal substance allergy status | CPT/HCPCS: 88305 ==

== ENCOUNTER → 2021-10-04 | Outpatient (CLI) | payer OTHER ==
[~2021-10-04] MED LIST changes: +AMOCLA875 PO; +ATEN25 PO; +ROSU5 PO; +SPIR25 PO; +Triamcinolone A15 G3 TOP
== END | disposition home or self-care (01) ==
LOC: LAB 15:14 → LAB SHORT 15:14
DX: C44.612 Basal cell carcinoma of skin of right upper limb, including shoulder (principal)
CPT/HCPCS: 88305

== ENCOUNTER 2021-10-10 16:26 | Inpatient (IN) | payer OTHER ==
[~2021-10-10] VITALS: Ht 167.6 cm; Wt 129.1 kg
[~2021-10-10 16:26] MED LIST changes: -AMOCLA875 PO; -ATEN25 PO; -ROSU5 PO; -SPIR25 PO; -Triamcinolone A15 G3 TOP
[2021-10-10 17:02] LABS: BASOPHILS ABSOLUTE AUTO 0.04 K/mm3 (0.00-0.23); BASOPHILS PERCENT AUTO 0 % (0-2); EOSINOPHILS ABSOLUTE AUTO 0.21 K/mm3 (0.00-0.68); EOSINOPHILS PERCENT AUTO 2 % (0-6); Hematocrit 40.2 % (37.0-53.0); Hemoglobin 13.2 g/dL (13.5-17.5); IMMATURE GRAN ABSOLUTE AUTO 0.04 K/mm3 (0.00-0.10); IMMATURE GRAN PERCENT AUTO 0 % (0-1); LYMPHOCYTES ABSOLUTE AUTO 1.58 K/mm3 (0.84-5.20); LYMPHOCYTES PERCENT AUTO 14 % (21-46); MONOCYTES ABSOLUTE AUTO 0.72 K/mm3 (0.16-1.47); MONOCYTES PERCENT AUTO 6 % (4-13); Mean Corpuscular HGB 31.3 pg (26.0-34.0); Mean Corpuscular HGB Conc 32.8 g/dL (31.5-36.5); Mean Corpuscular Volume 95 fL (80-100); Mean Platelet Volume 10.8 fL (9.1-12.4); NEUTROPHILS ABSOLUTE AUTO 8.58 K/mm3 (1.96-9.15); NEUTROPHILS PERCENT AUTO 77 % (41-73); Platelet Count 160 K/mm3 (150-400); RDW Coefficient Variation 13.6 % (11.7-14.2); RDW Standard Deviation 47.8 fL (35.1-46.3); Red Blood Cell Count 4.22 M/mm3 (4.30-5.90); White Blood Cell Count 11.17 K/mm3 (4.00-11.30)
[2021-10-10 17:19] LABS: Alanine Aminotransfer (ALT/SGP 48 U/L (12-78); Albumin, Blood 3.8 g/dL (3.4-5.0); Alk Phos 96 U/L (50-136); Anion Gap 2 mmol/L (6-16); Aspartate Aminotrans (AST/SGOT 41 U/L (12-37); Bilirubin, Total 0.5 mg/dL (0.1-1.0); Blood Urea Nitrogen 21 mg/dL (8-24); Bun/Creatinine Ratio 21.7 (12.0-20.0); CO2, Blood 28 mmol/L (21-32); Calcium, Blood 9.1 mg/dL (8.5-10.1); Chloride, Blood 108 mmol/L (98-108); Creatinine, Blood 0.97 mg/dL (0.60-1.20); Glomerular Filtration Rate >60 (60-); Glucose, Blood 149 mg/dL (70-99); Potassium, Blood 4.3 mmol/L (3.5-5.5); Sodium, Blood 138 mmol/L (136-145); Total Protein, Blood 7.8 g/dL (6.4-8.2)
[2021-10-10 17:57] LABS: Source, Urine Clean Catch
[2021-10-10 18:06] LABS: Appearance, Urine Clear (Clear); Bilirubin, Urine Neg (Neg); Blood, Urine 3+ (Neg); Color, Urine Yellow (P-Yellow); Glucose Qualitative, Urine Neg (Neg); Ketones, Urine Neg (Neg); Leukocyte Esterase, Urine Neg (Neg); Nitrite, Urine Neg (Neg); Protein, Urine 3+ (Neg); Specific Gravity, Urine 1.015 (1.003-1.022); Urobilinogen, Urine NORM (Normal); pH, Urine 6.5 (5.0-8.0)
[2021-10-10 18:12] LABS: Squamous Epithelial Cells Rare /hpf (Few)
[2021-10-10 18:13] LABS: Bacteria Rare /hpf
[2021-10-10 18:18] LABS: Influenza A, PCR NEGATIVE (NEGATIVE); Influenza B, PCR NEGATIVE (NEGATIVE); Resp Syncytial Virus, PCR NEGATIVE (NEGATIVE); SARS-Cov-2 (COVID-19) PCR, MMC NEGATIVE (NEGATIVE)
[2021-10-11 04:11] LABS: BASOPHILS ABSOLUTE AUTO 0.04 K/mm3 (0.00-0.23); BASOPHILS PERCENT AUTO 0 % (0-2); EOSINOPHILS ABSOLUTE AUTO 0.31 K/mm3 (0.00-0.68); EOSINOPHILS PERCENT AUTO 3 % (0-6); Hematocrit 40.3 % (37.0-53.0); Hemoglobin 13.5 g/dL (13.5-17.5); IMMATURE GRAN ABSOLUTE AUTO 0.02 K/mm3 (0.00-0.10); IMMATURE GRAN PERCENT AUTO 0 % (0-1); LYMPHOCYTES ABSOLUTE AUTO 2.53 K/mm3 (0.84-5.20); LYMPHOCYTES PERCENT AUTO 27 % (21-46); MONOCYTES ABSOLUTE AUTO 0.68 K/mm3 (0.16-1.47); MONOCYTES PERCENT AUTO 7 % (4-13); Mean Corpuscular HGB 31.7 pg (26.0-34.0); Mean Corpuscular HGB Conc 33.5 g/dL (31.5-36.5); Mean Corpuscular Volume 95 fL (80-100); Mean Platelet Volume 10.5 fL (9.1-12.4); NEUTROPHILS ABSOLUTE AUTO 5.73 K/mm3 (1.96-9.15); NEUTROPHILS PERCENT AUTO 62 % (41-73); Platelet Count 149 K/mm3 (150-400); RDW Coefficient Variation 13.8 % (11.7-14.2); RDW Standard Deviation 48.1 fL (35.1-46.3); Red Blood Cell Count 4.26 M/mm3 (4.30-5.90); White Blood Cell Count 9.31 K/mm3 (4.00-11.30)
[2021-10-11 04:31] LABS: Anion Gap 4 mmol/L (6-16); Blood Urea Nitrogen 19 mg/dL (8-24); Bun/Creatinine Ratio 19.8 (12.0-20.0); CO2, Blood 28 mmol/L (21-32); Calcium, Blood 8.8 mg/dL (8.5-10.1); Chloride, Blood 110 mmol/L (98-108); Creatinine, Blood 0.96 mg/dL (0.60-1.20); Glomerular Filtration Rate >60 (60-); Glucose, Blood 120 mg/dL (70-99); Potassium, Blood 3.7 mmol/L (3.5-5.5); Sodium, Blood 142 mmol/L (136-145)
--- NOTE | 2021-10-11 06:31 | NUR ---
ORCHID HAND SUMMARY PT IS AXO X4 AND COMMUNICATING APPROPRIATELY. PT ARRIVED TO UNIT FROM THE ER ON OXYMIZER W 10L BUT THE O2 WAS TAKEN OFF WHEN HE ARRIVED AND HE HAS MAINTAINED O2 SATS OF 92-94% ON RM AIR ALL SHIFT. BP WNL AND STABLE. PT AFEBRILE. PT HAS SLEPT COMFORTABLY FOR MOST OF THE SHIFT. WILL REPORT TO ONCOMING RN.
--- NOTE | 2021-10-11 08:28 | NUR ---
Sitting up in bed, assisted by INTERMISSION COORDINATOR for eating breakfast. 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 No supplemental oxygen needed at this time, states that his breathing feels a lot better today. No dyspnea noted at rest, or while eating and talking.
--- NOTE | 2021-10-11 09:20 | NUR ---
Call from imaging dept at 9 am, asking if Pt was NPO. Pt ate breakfast. NPO at this time until this afternoon for abdominal CT.
--- NOTE | 2021-10-11 10:00 | NUR ---
Echocardiogram completed.
--- NOTE | 2021-10-11 11:19 | NUR ---
Ambulatory with walker and gait belt from bed to chair, and later from chair to the bathroom, twice, with just minimal assistance. He states his breathing continues to feel much better than it did yesterday.
--- NOTE | 2021-10-11 14:02 | NUR ---
Pt assisted to get back in bed for an abdominal ultrasound.
--- NOTE | 2021-10-11 16:04 | NUR ---
Pt is lying in bed, eyes closed, HOB elevated 50 degrees. Respirations are even and unlabored. Continuous oximetry 93% on room air.
--- NOTE | 2021-10-11 17:09 | NUR ---
The pt has been alert, oriented but some limitations on his memory and at times is a little slow to respond. However, appropriate in conversation and able to make his needs known and recognizes his physical limitations. Using the call light appropriately. Dentures upper and lower in use by the patient. Appetite fair, but doesn't like the food much of the time. Ambulatory from the bed to the chair and to the bathroom with use of walker and also a gait belt, one staff member assisting. He has not required any supplemental oxygen at rest nor with activity. No cough.
--- NOTE | 2021-10-11 17:29 | NUR ---
sitting up in chair, eating dinner.
--- NOTE | 2021-10-12 05:56 | NUR ---
SHIFT SUMMARY ASSUMED CARE OF PT AT 1900. PT IS A/OX3. HEART SOUNDS REGULAR. LUNG SOUNDS HAVE CRACKLES AT THE BASES. PT WORE CPAP T/O THE NIGHT. PT USED THE URINAL WITH NURSE ASSISTANCE DURING THE NIGHT. PT HAS REDNESS UNDERNEATH HIS PANUS. BARRIER CREAM APPLIED. PT HAD NO ACUTE EVENTS, WAS ABLE TO SLEEP T/O THE NIGHT.
[2021-10-12 07:13] LABS: BASOPHILS ABSOLUTE AUTO 0.03 K/mm3 (0.00-0.23); BASOPHILS PERCENT AUTO 1 % (0-2); EOSINOPHILS ABSOLUTE AUTO 0.33 K/mm3 (0.00-0.68); EOSINOPHILS PERCENT AUTO 5 % (0-6); Hematocrit 37.7 % (37.0-53.0); Hemoglobin 12.4 g/dL (13.5-17.5); IMMATURE GRAN ABSOLUTE AUTO 0.01 K/mm3 (0.00-0.10); IMMATURE GRAN PERCENT AUTO 0 % (0-1); LYMPHOCYTES PERCENT AUTO 30 % (21-46); MONOCYTES ABSOLUTE AUTO 0.53 K/mm3 (0.16-1.47); MONOCYTES PERCENT AUTO 8 % (4-13); Mean Corpuscular HGB 31.6 pg (26.0-34.0); Mean Corpuscular HGB Conc 32.9 g/dL (31.5-36.5); Mean Corpuscular Volume 96 fL (80-100); Mean Platelet Volume 10.6 fL (9.1-12.4); NEUTROPHILS ABSOLUTE AUTO 3.58 K/mm3 (1.96-9.15); NEUTROPHILS PERCENT AUTO 56 % (41-73); Platelet Count 143 K/mm3 (150-400); RDW Standard Deviation 49.7 fL (35.1-46.3); Red Blood Cell Count 3.92 M/mm3 (4.30-5.90); White Blood Cell Count 6.38 K/mm3 (4.00-11.30)
[2021-10-12 07:37] LABS: Anion Gap 8 mmol/L (6-16); Blood Urea Nitrogen 25 mg/dL (8-24); Bun/Creatinine Ratio 21.6 (12.0-20.0); CO2, Blood 26 mmol/L (21-32); Calcium, Blood 8.8 mg/dL (8.5-10.1); Chloride, Blood 109 mmol/L (98-108); Creatinine, Blood 1.16 mg/dL (0.60-1.20); Glomerular Filtration Rate >60 (60-); Glucose, Blood 118 mg/dL (70-99); Sodium, Blood 143 mmol/L (136-145)
--- NOTE | 2021-10-12 07:49 | NUR ---
Walked to bathroom with staff assistance to void. Assisted to chair, noted that spo2 upon returning to the chair (activity done on room air) was 84%. Quickly recovered to 92% after sitting. Pt denies any shortness of breath while walking. No cough.
--- NOTE | 2021-10-12 11:42 | NUR ---
Pt sitting up, watching TV. States that he is going to get discharge papers from the doctor today after lunch.
[2021-10-12] MEDS ORDERED: AMOCLA875 PO (12:39)
[2021-10-12] MEDS ORDERED: AMLO5 PO (12:40)
[2021-10-12] MEDS ORDERED: ROSU5 PO (12:40)
[2021-10-12] MEDS ORDERED: ATEN25 PO (12:40)
--- NOTE | 2021-10-12 14:51 | NUR ---
Call to to inform her that the pt is ready for discharge. Discharge instructions reviewed with the patient, and paperwork provided for him. IV dc'd.
== END 2021-10-12 15:28 | disposition home or self-care (01) | DRG 871 ==
LOC: ER 16:26 → PCU 16:27 → MEDS 16:27 → PCU 16:27 → ER 16:27 → PCU 16:28 → ER 16:28 → PCU 16:28 → MEDS 23:41 → PCU 10-12 15:28
PROVIDERS: Family Medicine; Physician Assistant; ADMIT Internal Medicine
DX: A41.9 Sepsis, unspecified organism (principal); J18.9 Pneumonia, unspecified organism; J96.00 Acute respiratory failure, unspecified whether with hypoxia or hypercapnia; I69.354 Hemiplegia and hemiparesis following cerebral infarction affecting left non-dominant side; Z68.42 Body mass index [BMI] 45.0-49.9, adult; M54.2 Cervicalgia; G89.29 Other chronic pain; E11.9 Type 2 diabetes mellitus without complications; F32.A Depression, unspecified; H91.90 Unspecified hearing loss, unspecified ear; Z20.822 Contact with and (suspected) exposure to COVID-19; G47.33 Obstructive sleep apnea (adult) (pediatric); K74.60 Unspecified cirrhosis of liver; Z96.652 Presence of left artificial knee joint; E66.9 Obesity, unspecified; Z99.89 Dependence on other enabling machines and devices; Z90.49 Acquired absence of other specified parts of digestive tract; Z98.890 Other specified postprocedural states; Z87.891 Personal history of nicotine dependence; Z88.6 Allergy status to analgesic agent; Z88.8 Allergy status to other drugs, medicaments and biological substances; Z79.84 Long term (current) use of oral hypoglycemic drugs; Z79.899 Other long term (current) drug therapy
CPT/HCPCS: 0241U; 36415; 71045; 71260; 76705; 80048; 80053; 81001; 82947; 83605; 83880; 84145; 85025; 87040; 87086; 87449; 93005; 93010; 93306; 94660; 94762; 96365; 96366; 96375; 97116; 97162; 97166; 97535; 99285-25; A9270; J0456; J0696; J1650; J7050; J7120; Q9967

== ENCOUNTER → 2021-10-25 | Outpatient (CLI) | payer OTHER ==
[~2021-10-25] MED LIST changes: +AMOCLA875 PO; +ATEN25 PO; +ROSU5 PO
== END | disposition home or self-care (01) ==
LOC: PLD 15:20 → LAB SHORT 15:20
DX: C44.612 Basal cell carcinoma of skin of right upper limb, including shoulder (principal)
CPT/HCPCS: 88305

== ENCOUNTER 2022-01-16 17:51 | Inpatient (IN) | payer OTHER ==
[~2022-01-16] VITALS: Ht 167.6 cm; Wt 133.4 kg
[2022-01-16 22:06] LABS: Source, Urine Clean Catch
[2022-01-16 22:12] LABS: BASOPHILS ABSOLUTE AUTO 0.02 K/mm3 (0.00-0.23); BASOPHILS PERCENT AUTO 0 % (0-2); EOSINOPHILS ABSOLUTE AUTO 0.16 K/mm3 (0.00-0.68); EOSINOPHILS PERCENT AUTO 4 % (0-6); Hematocrit 38.2 % (37.0-53.0); Hemoglobin 12.7 g/dL (13.5-17.5); IMMATURE GRAN ABSOLUTE AUTO 0.02 K/mm3 (0.00-0.10); IMMATURE GRAN PERCENT AUTO 0 % (0-1); LYMPHOCYTES ABSOLUTE AUTO 1.01 K/mm3 (0.84-5.20); LYMPHOCYTES PERCENT AUTO 22 % (21-46); MONOCYTES ABSOLUTE AUTO 0.56 K/mm3 (0.16-1.47); MONOCYTES PERCENT AUTO 12 % (4-13); Mean Corpuscular HGB 31.8 pg (26.0-34.0); Mean Corpuscular HGB Conc 33.2 g/dL (31.5-36.5); Mean Corpuscular Volume 96 fL (80-100); Mean Platelet Volume 11.3 fL (9.1-12.4); NEUTROPHILS ABSOLUTE AUTO 2.86 K/mm3 (1.96-9.15); NEUTROPHILS PERCENT AUTO 62 % (41-73); Platelet Count 131 K/mm3 (150-400); RDW Coefficient Variation 15.2 % (11.7-14.2); RDW Standard Deviation 53.4 fL (35.1-46.3); White Blood Cell Count 4.63 K/mm3 (4.00-11.30)
[2022-01-16 22:17] LABS: Appearance, Urine Hazy (Clear); Bilirubin, Urine Neg (Neg); Blood, Urine 2+ (Neg); Color, Urine Yellow (P-Yellow); Glucose Qualitative, Urine Neg (Neg); Ketones, Urine Neg (Neg); Leukocyte Esterase, Urine 1+ (Neg); Nitrite, Urine Neg (Neg); Protein, Urine 4+ (Neg); Urobilinogen, Urine 1+ (Normal)
[2022-01-16 22:24] LABS: Albumin, Blood 3.6 g/dL (3.4-5.0); Albumin/Globulin Ratio 0.9 (0.8-1.8); Bilirubin, Total 0.7 mg/dL (0.1-1.0); Bun/Creatinine Ratio 15.9 (12.0-20.0); Calcium, Blood 9.1 mg/dL (8.5-10.1); Creatinine, Blood 1.07 mg/dL (0.60-1.20); Potassium, Blood 4.3 mmol/L (3.5-5.5); Total Protein, Blood 7.6 g/dL (6.4-8.2)
[2022-01-16 22:32] LABS: Amorphous Light (0-Heavy); Bacteria Many /hpf; Hyaline Casts 0-2 /lpf (0-2); Red Blood Cells, Urine 0-2 /hpf (0-2); Squamous Epithelial Cells Rare /hpf (Few)
--- NOTE | 2022-01-17 07:21 | NUR ---
PATIENT TO ROOM FROM ED AT 0623, SLID TO BED FROM STRETCHER. PATIENT IS ALERT AND ORIENTED X4. 02 SATS 95% ON RA. HR SR AT 60s. BP HYPERTENSIVE WITH SYSTOLIC IN 170s, DENIES CP/PRESSURE. USES URINAL WITH ASSISTANCE. TWO PERSON ASSIST WITH REPOSITONING. CHANGED INTO GOWN. CALL LIGHT IN REACH. PATIENT STATED HE WANTS TO BE A FULL CODE. STEPPED OUT OF ROOM TO GIVE DAYSHIFT RN REPORT.
--- NOTE | 2022-01-17 09:11 | NUR ---
PATIENT IN NO DISTRESS, REPORT FROM HAMILTON GAMBOA RN, PT AND OT IN WORKING WITH PATIENT NOW, ALERT AND OREINTED, USED CALL LIGHT APPRIATELY THIS AM, CONTINENT, ASKING FOR BSU, ATE BREAKFAST, WCTM
[2022-01-17 10:33] LABS: BASOPHILS ABSOLUTE AUTO 0.02 K/mm3 (0.00-0.23); BASOPHILS PERCENT AUTO 0 % (0-2); EOSINOPHILS ABSOLUTE AUTO 0.17 K/mm3 (0.00-0.68); EOSINOPHILS PERCENT AUTO 4 % (0-6); Hematocrit 37.1 % (37.0-53.0); Hemoglobin 12.4 g/dL (13.5-17.5); IMMATURE GRAN ABSOLUTE AUTO 0.01 K/mm3 (0.00-0.10); IMMATURE GRAN PERCENT AUTO 0 % (0-1); LYMPHOCYTES ABSOLUTE AUTO 1.34 K/mm3 (0.84-5.20); LYMPHOCYTES PERCENT AUTO 29 % (21-46); MONOCYTES ABSOLUTE AUTO 0.49 K/mm3 (0.16-1.47); MONOCYTES PERCENT AUTO 10 % (4-13); Mean Corpuscular HGB 31.4 pg (26.0-34.0); Mean Corpuscular HGB Conc 33.4 g/dL (31.5-36.5); Mean Corpuscular Volume 94 fL (80-100); NEUTROPHILS ABSOLUTE AUTO 2.67 K/mm3 (1.96-9.15); NEUTROPHILS PERCENT AUTO 57 % (41-73); Platelet Count 110 K/mm3 (150-400); RDW Coefficient Variation 15.1 % (11.7-14.2); RDW Standard Deviation 52.1 fL (35.1-46.3); Red Blood Cell Count 3.95 M/mm3 (4.30-5.90)
[2022-01-17 10:43] LABS: Albumin, Blood 3.3 g/dL (3.4-5.0); Albumin/Globulin Ratio 0.9 (0.8-1.8); Bilirubin, Total 0.5 mg/dL (0.1-1.0); Bun/Creatinine Ratio 15.9 (12.0-20.0); Calcium, Blood 8.8 mg/dL (8.5-10.1); Creatinine, Blood 0.95 mg/dL (0.60-1.20); Globulin, Blood 3.8 g/dL (2.2-4.0); Magnesium, Blood 1.9 mg/dL (1.6-2.4); Phosphorus, Blood 2.5 mg/dL (2.5-4.9); Total Protein, Blood 7.1 g/dL (6.4-8.2)
[2022-01-17 18:10] LABS: Source, Urine Foley catheter
--- NOTE | 2022-01-17 18:33 | NUR ---
ALERT AND ORIENTED X4, MAKES NEEDS KNOWN, CALL LIGHT WITH IN REACH, OLD CVA RIGHT SIDE DEFICITS, WORKED WITH PT/OT TODAY, PATIENT AT HIS BASELINE ACTIVITY LEVEL, LS DIM BASES, SATS 95% ON RA, SLEEP APNEA, HOME MACHINE NOT IN HOSPITAL, HTN SBP 150-180S, GOOD APPETITE, BM TODAY, SPARKS PLACED DRAINING CLEAR YELLOW URINE. VERY [place], HEARING AIDS IN AND HEARING AID ROPING MACHINE TENDER IN ROOM, FREQUENT NEEDS, PLEASANT TO CARE, CALL LIGHT WITH IN REACH, WCTM
[2022-01-17 18:34] LABS: Appearance, Urine Clear (Clear); Bilirubin, Urine Neg (Neg); Blood, Urine Neg (Neg); Glucose Qualitative, Urine Neg (Neg); Ketones, Urine Neg (Neg); Leukocyte Esterase, Urine Neg (Neg); Nitrite, Urine Neg (Neg); Protein, Urine 3+ (Neg); Urobilinogen, Urine NORM (Normal); pH, Urine 6.5 (5.0-8.0)
[2022-01-17 19:03] LABS: Color, Urine Pale Yellow (P-Yellow)
[2022-01-17 19:04] LABS: Red Blood Cells, Urine 0-2 /hpf (0-2); White Blood Cells, Urine 0-2 /hpf (0-5)
[2022-01-17 19:05] LABS: Bacteria Mod /hpf; Squamous Epithelial Cells Rare /hpf (Few)
--- NOTE | 2022-01-17 19:48 | NUR ---
Assumed care. Report received from nivia RN. Pt resting in bed att, on room air. IV access in L/AC, palacios catheter in place. Pt requested CPAP for sleeping, RT notified. No other acute needs, will continue to monitor.
[2022-01-18 03:27] LABS: BASOPHILS ABSOLUTE AUTO 0.02 K/mm3 (0.00-0.23); BASOPHILS PERCENT AUTO 0 % (0-2); EOSINOPHILS ABSOLUTE AUTO 0.29 K/mm3 (0.00-0.68); EOSINOPHILS PERCENT AUTO 6 % (0-6); Hematocrit 36.7 % (37.0-53.0); Hemoglobin 12.1 g/dL (13.5-17.5); IMMATURE GRAN ABSOLUTE AUTO 0.01 K/mm3 (0.00-0.10); IMMATURE GRAN PERCENT AUTO 0 % (0-1); LYMPHOCYTES ABSOLUTE AUTO 1.56 K/mm3 (0.84-5.20); LYMPHOCYTES PERCENT AUTO 33 % (21-46); MONOCYTES ABSOLUTE AUTO 0.46 K/mm3 (0.16-1.47); MONOCYTES PERCENT AUTO 10 % (4-13); Mean Corpuscular HGB 30.9 pg (26.0-34.0); Mean Corpuscular Volume 94 fL (80-100); Mean Platelet Volume 10.5 fL (9.1-12.4); NEUTROPHILS ABSOLUTE AUTO 2.33 K/mm3 (1.96-9.15); NEUTROPHILS PERCENT AUTO 50 % (41-73); Platelet Count 125 K/mm3 (150-400); RDW Coefficient Variation 15.3 % (11.7-14.2); RDW Standard Deviation 52.8 fL (35.1-46.3); Red Blood Cell Count 3.91 M/mm3 (4.30-5.90); White Blood Cell Count 4.67 K/mm3 (4.00-11.30)
[2022-01-18 03:52] LABS: Albumin, Blood 3.2 g/dL (3.4-5.0); Albumin/Globulin Ratio 0.9 (0.8-1.8); Bilirubin, Total 0.9 mg/dL (0.1-1.0); Bun/Creatinine Ratio 16.1 (12.0-20.0); Calcium, Blood 8.8 mg/dL (8.5-10.1); Creatinine, Blood 0.99 mg/dL (0.60-1.20); Globulin, Blood 3.6 g/dL (2.2-4.0); Potassium, Blood 4.2 mmol/L (3.5-5.5); Total Protein, Blood 6.8 g/dL (6.4-8.2)
--- NOTE | 2022-01-18 06:40 | NUR ---
Shift summary. Pt rested in bed throughout shift. Alert and oriented, no acute events overnight. 1050 out of palacios catheter this shift. See shift assessment for further details. Will continue to monitor and report off to dayshift RN.
--- NOTE | 2022-01-18 07:35 | NUR ---
REPORT FROM PM MUSTAPHA HOOD, MAKES NEEDS KNOWN, NO DISTRESS THIS AM, WAITING FOR BREAKFAST, DENIES PAIN OR N/V, CALL LIGHT WITH IN REACH, WCTM
--- NOTE | 2022-01-18 09:40 | NUR ---
DR SIMONS ROUNDED ON PATIENT, PATIENT TO STAY ANOTHER NIGHT, CHANGED TO MEDICAL STATUS NO TELE, REPORTED TO YORDAN PATIENT TO STAY ANOTHER NIGHT, PATIENT REPORTS ONLY FEELING THAT HE IS AT 40% OF HIS BASELINE, CALL LIGHT WITH IN REACH, WCTM
--- NOTE | 2022-01-18 10:26 | NUR ---
Spiritual Care Request. Pt. is awake and in Covid isolation. Pt. welcomes my visit. It is Pts. birthday, and i wish him Happy Birthday. Pt. does not recall making the spiritual care request, but is interested in chatting. Established rapport. Pt. displayed evidence of being encouraged by the visit, and verbalized gratitude for the spiritual care visit.
--- NOTE | 2022-01-18 12:43 | NUR ---
PATIENT CONTINUES TO REFUSE TO BE TURNED ON A SIDE TO PREVENT BED SORES, PATIENT EDUCATED ON BED SORES AND THE IMPORTANT TO CHANGE POSITION, PATIENT STILL REFUSED TO REPOSITION
--- NOTE | 2022-01-18 15:31 | NUR ---
OT IN WORKING WITH PATIENT
--- NOTE | 2022-01-18 15:58 | NUR ---
PT IN WORKING WITH PATIENT
--- NOTE | 2022-01-18 17:02 | NUR ---
REPORT GIVEN TO [facility]ADA [facility] MEDICAL FLOOR DAVID LUCIANO TO BE TRANSFERRED TO ROOM 303 ONCE THE ROOM IS CLEANED, PATIENT OOB IN CHAIR, BELONGINGS GATHERED, NOTIFIED OF ROOM CHANGE, PATIENT HAS NO OBJECTIONS
--- NOTE | 2022-01-18 18:34 | NUR ---
SHIFT SUMMARY/ TRANSFER NOTE- PT TRANSFERED TO MEDICAL FLOOR FROM ICU. PER REPORT FROM WAITER/WAITRESS DINING CAR PT WAS HAVING INCREASED WEAKNESS AT HOME FOR THE PAST THREE DAYS AND WAS SENT TO THE ER WHERE HE WAS ADMITTED FOR HTN EMERGENCY AND WAS FOUND TO BE COVID POSITIVE. PT VS HAVE BEEN STABLE T/O THE DAY IN ICU, ALTHOUGH HIGH AFTER ARRIVAL ON MEDICAL FLOOR PRN NOT GIVEN SCHEDULED MEDICATIONS WERE ADMINISTERED FIRST. VITALS RECHECK WILL BE AT THE TIME OF SHIFT CHANGE. PT IS A 2P MOD ASSIST FOR STAND AND PIVOT TRANSFERS. SPARKS IN PLACE PATENT AND DRAINING. PT ALSO POSITIVE FOR A UTI. PER REPORT THAT SPARKS IS NOT CHRONIC AND WAS PLACED THIS ADMIT. PT ASSITED TO BED AFTER SITTING IN THE RECLINER TO EAT DINNER. PT HAS RIGHT SIDED WEAKNESS FROM A PRIOR NECK Fx THAT RESULTED IN A CVA 2 YEARS AGO. PLAN IS FOR THE PT TO RETURN HOME TOMORROW. ALSO PER REPORT PT HAS ALL ASSISTIVE DEVICES AND CAREGIVERS THAT ARE NEEDED AT HOME. OTHER FAMILY AT HOME ARE ALSO COVID POSITIVE. PT CURRENTLY IN BED, CALL LIGHT IN REACH, BED ALARM SET FOR SAFETY, NO S&S OF DISTRESS WILL CTM AND PASS ON TO NIGHT RN IN REPORT.
--- NOTE | 2022-01-19 05:46 | NUR ---
SHIFT SUMMARY: PT A/OX3, 2 PERSON STANDBY ASSIST TO BEDSIDE COMMODE. PT CONTINUES TO CALL APPROPRIATLEY AND MAKES NEEDS KNOWN. PT ABLE TO STAND AND PIVOT TO BEDSIDE COMMODE WITH ASSISTANCE, JEREMY BM. SPARKS CATHETER REMAINS IN PLACE AND DRAINING WELL. NO COMPLAINTS OF PAIN THROUGHOUT SHIFT. CPAP REMAINED IN USE WHILE RESTING, O2 SATURATION STAYING IN THE 90'S. BED ALARM REMAINS ACTIVATED, BED IN LOW POSITION, CALL SERRANO AND BELONGINGS IN REACH.
[2022-01-19] MEDS ORDERED: FURO20 PO (11:31)
[2022-01-19] MEDS ORDERED: SPIR25 PO (11:31)
--- NOTE | 2022-01-19 13:05 | NUR ---
DISCHARGE NOTE- CALLED PT SPOUSE ANDRADE AND SPOKE TO HER ABOUT DISCHARGE MEDICATIONS. PT WAS ALSO GIVE VERBAL AND WRITTEN DISCHARGE INSTRUCTIONS AND ACKNOWLEDGED UNDERSTANDING OF THEM. PT SPOUSE IS SENDING THE PT SON-IN-LAW TO COME PICK HIM UP, HE IS BRINGING THE PT SOME CLOTHES WHEN HE COMES. PT WILMER AND CLARE WERE DC'D. SECOND FAX SENT TO [facility] WITH THE ADDITION OF ABX. PT AND SPOUSE ARE AWARE OF ALL THE MEDICATION CHANGES.
== END 2022-01-19 13:46 | disposition home or self-care (01) | DRG 178 ==
LOC: ER 17:51 → ERHOLD 01-17 01:15 → ICUW 01-17 01:15 → MEDS 01-18 17:22
PROVIDERS: Emergency Medicine; Hospitalist; ADMIT Internal Medicine
PROC: 8E0ZXY6 Isolation (ICD-10-PCS; principal; 2022-01-17)
PROC: XW033H6 Introduction of Other New Technology Monoclonal Antibody into Peripheral Vein, Percutaneous Approach, New Technology Group 6 (ICD-10-PCS; 2022-01-17)
DX: U07.1 COVID-19 (principal); I69.351 Hemiplegia and hemiparesis following cerebral infarction affecting right dominant side; Z68.42 Body mass index [BMI] 45.0-49.9, adult; N39.0 Urinary tract infection, site not specified; Z74.01 Bed confinement status; Z23 Encounter for immunization; I16.0 Hypertensive urgency; J44.9 Chronic obstructive pulmonary disease, unspecified; R29.6 Repeated falls; K21.9 Gastro-esophageal reflux disease without esophagitis; I10 Essential (primary) hypertension; E11.9 Type 2 diabetes mellitus without complications; G47.33 Obstructive sleep apnea (adult) (pediatric); B95.4 Other streptococcus as the cause of diseases classified elsewhere; G89.29 Other chronic pain; F17.210 Nicotine dependence, cigarettes, uncomplicated; M54.2 Cervicalgia; M54.9 Dorsalgia, unspecified; Z96.652 Presence of left artificial knee joint; E66.01 Morbid (severe) obesity due to excess calories; R74.01 Elevation of levels of liver transaminase levels; Z87.01 Personal history of pneumonia (recurrent); Z90.49 Acquired absence of other specified parts of digestive tract; Z98.890 Other specified postprocedural states; Z88.6 Allergy status to analgesic agent; Z88.8 Allergy status to other drugs, medicaments and biological substances; Z79.899 Other long term (current) drug therapy
CPT/HCPCS: 36415; 51702; 71045; 80053; 81001; 82947; 83735; 83880; 84100; 84484; 85025; 87086; 93005; 93010; 94660; 94762; 96374; 97110; 97116; 97162; 97165; 97530; 99285-25; A9270; J0360; J0696; J1650; J7030; M0222

== ENCOUNTER 2022-02-22 18:41 | Emergency (ER) | payer OTHER ==
[~2022-02-22] VITALS: Ht 167.6 cm; Wt 131.1 kg
[~2022-02-22 18:41] MED LIST changes: +SPIR25 PO
[2022-02-22 22:26] LABS: Influenza A, PCR NEGATIVE (NEGATIVE); Influenza B, PCR NEGATIVE (NEGATIVE); Resp Syncytial Virus, PCR NEGATIVE (NEGATIVE); SARS-Cov-2 (COVID-19) PCR, MMC NEGATIVE (NEGATIVE)
[2022-02-22 23:35] LABS: BASOPHILS ABSOLUTE AUTO 0.01 K/mm3 (0.00-0.23); BASOPHILS PERCENT AUTO 0 % (0-2); EOSINOPHILS ABSOLUTE AUTO 0.19 K/mm3 (0.00-0.68); EOSINOPHILS PERCENT AUTO 4 % (0-6); Hematocrit 35.3 % (37.0-53.0); Hemoglobin 11.9 g/dL (13.5-17.5); IMMATURE GRAN ABSOLUTE AUTO 0.01 K/mm3 (0.00-0.10); IMMATURE GRAN PERCENT AUTO 0 % (0-1); LYMPHOCYTES ABSOLUTE AUTO 1.45 K/mm3 (0.84-5.20); LYMPHOCYTES PERCENT AUTO 26 % (21-46); MONOCYTES ABSOLUTE AUTO 0.55 K/mm3 (0.16-1.47); MONOCYTES PERCENT AUTO 10 % (4-13); Mean Corpuscular HGB 31.6 pg (26.0-34.0); Mean Corpuscular HGB Conc 33.7 g/dL (31.5-36.5); Mean Corpuscular Volume 94 fL (80-100); Mean Platelet Volume 10.7 fL (9.1-12.4); NEUTROPHILS ABSOLUTE AUTO 3.28 K/mm3 (1.96-9.15); NEUTROPHILS PERCENT AUTO 60 % (41-73); Platelet Count 115 K/mm3 (150-400); RDW Coefficient Variation 14.7 % (11.7-14.2); RDW Standard Deviation 50.9 fL (35.1-46.3); Red Blood Cell Count 3.76 M/mm3 (4.30-5.90); White Blood Cell Count 5.49 K/mm3 (4.00-11.30)
[2022-02-22 23:53] LABS: Albumin, Blood 3.5 g/dL (3.4-5.0); Albumin/Globulin Ratio 0.9 (0.8-1.8); Bilirubin, Total 0.5 mg/dL (0.1-1.0); Bun/Creatinine Ratio 21.1 (12.0-20.0); Calcium, Blood 9.1 mg/dL (8.5-10.1); Creatinine, Blood 0.99 mg/dL (0.60-1.20); Globulin, Blood 4.1 g/dL (2.2-4.0); Magnesium, Blood 1.9 mg/dL (1.6-2.4); Potassium, Blood 4.1 mmol/L (3.5-5.5); Total Protein, Blood 7.6 g/dL (6.4-8.2)
[2022-02-22 23:59] LABS: Source, Urine Clean Catch
[2022-02-23 00:04] LABS: Bilirubin, Urine Neg (Neg); Blood, Urine 3+ (Neg); Glucose Qualitative, Urine Neg (Neg); Ketones, Urine Neg (Neg); Leukocyte Esterase, Urine Neg (Neg); Nitrite, Urine Neg (Neg); Protein, Urine 3+ (Neg); Urobilinogen, Urine NORM (Normal)
[2022-02-23 00:11] LABS: Appearance, Urine Clear (Clear); Color, Urine Yellow (P-Yellow)
[2022-02-23 00:12] LABS: Amorphous Light (0-Heavy); Bacteria Few /hpf; Squamous Epithelial Cells Few /hpf (Few)
[2022-02-23] MEDS ORDERED: Triamcinolone A15 G3 TOP (00:54)
== END 2022-02-23 01:58 | disposition home or self-care (01) ==
LOC: ER 18:41
PROVIDERS: Physician Assistant
DX: R53.1 Weakness (principal); J02.9 Acute pharyngitis, unspecified; I10 Essential (primary) hypertension; J44.9 Chronic obstructive pulmonary disease, unspecified; I69.951 Hemiplegia and hemiparesis following unspecified cerebrovascular disease affecting right dominant side; Z79.899 Other long term (current) drug therapy; Z88.6 Allergy status to analgesic agent; Z88.5 Allergy status to narcotic agent; Z88.8 Allergy status to other drugs, medicaments and biological substances; Z87.891 Personal history of nicotine dependence; Z20.822 Contact with and (suspected) exposure to COVID-19
CPT/HCPCS: 0241U; 36415; 80053; 81001; 83735; 85025; 93005; 93010; 99285-25; A9270

== ENCOUNTER 2022-04-20 12:39 | Emergency (ER) | payer OTHER ==
[~2022-04-20] VITALS: Ht 167.6 cm; Wt 131.5 kg
[~2022-04-20 12:39] MED LIST changes: +Triamcinolone A15 G3 TOP
[2022-04-20 13:49] LABS: BASOPHILS ABSOLUTE AUTO 0.03 K/mm3 (0.00-0.23); BASOPHILS PERCENT AUTO 1 % (0-2); EOSINOPHILS ABSOLUTE AUTO 0.17 K/mm3 (0.00-0.68); EOSINOPHILS PERCENT AUTO 3 % (0-6); Hematocrit 39.7 % (37.0-53.0); Hemoglobin 13.2 g/dL (13.5-17.5); IMMATURE GRAN ABSOLUTE AUTO 0.01 K/mm3 (0.00-0.10); IMMATURE GRAN PERCENT AUTO 0 % (0-1); LYMPHOCYTES ABSOLUTE AUTO 1.54 K/mm3 (0.84-5.20); LYMPHOCYTES PERCENT AUTO 29 % (21-46); MONOCYTES ABSOLUTE AUTO 0.33 K/mm3 (0.16-1.47); MONOCYTES PERCENT AUTO 6 % (4-13); Mean Corpuscular HGB 31.8 pg (26.0-34.0); Mean Corpuscular HGB Conc 33.2 g/dL (31.5-36.5); Mean Corpuscular Volume 96 fL (80-100); Mean Platelet Volume 11.1 fL (9.1-12.4); NEUTROPHILS ABSOLUTE AUTO 3.15 K/mm3 (1.96-9.15); NEUTROPHILS PERCENT AUTO 60 % (41-73); Platelet Count 131 K/mm3 (150-400); RDW Coefficient Variation 14.7 % (11.7-14.2); Red Blood Cell Count 4.15 M/mm3 (4.30-5.90); White Blood Cell Count 5.23 K/mm3 (4.00-11.30)
[2022-04-20 14:18] LABS: Albumin/Globulin Ratio 0.9 (0.8-1.8); Bilirubin, Total 0.4 mg/dL (0.1-1.0); Bun/Creatinine Ratio 28.2 (12.0-20.0); Calcium, Blood 9.8 mg/dL (8.5-10.1); Creatinine, Blood 1.24 mg/dL (0.60-1.20); Globulin, Blood 4.3 g/dL (2.2-4.0); Potassium, Blood 4.9 mmol/L (3.5-5.5); Total Protein, Blood 8.3 g/dL (6.4-8.2)
[2022-04-20] MEDS ORDERED: SPIR50 PO (15:09)
[2022-04-20] MEDS ORDERED: METF500 PO (15:12)
[2022-04-20] MEDS ORDERED: VENL75ER PO (15:13)
[2022-04-20 15:58] LABS: Source, Urine Clean Catch
[2022-04-20 16:04] LABS: Appearance, Urine Clear (Clear); Bilirubin, Urine Neg (Neg); Blood, Urine Neg (Neg); Color, Urine Yellow (P-Yellow); Glucose Qualitative, Urine Neg (Neg); Ketones, Urine Neg (Neg); Leukocyte Esterase, Urine 1+ (Neg); Nitrite, Urine Neg (Neg); Protein, Urine 3+ (Neg); Specific Gravity, Urine 1.015 (1.003-1.022); Urobilinogen, Urine 1+ (Normal)
[2022-04-20 16:13] LABS: Bacteria Many /hpf; Granular Casts 0-2 /lpf (0); Hyaline Casts 0-2 /lpf (0-2); Squamous Epithelial Cells Rare /hpf (Few); White Blood Cells, Urine 25-50 /hpf (0-5)
[2022-04-20] MEDS ORDERED: CEPH500 PO (16:40)
== END 2022-04-20 16:54 | disposition home or self-care (01) ==
LOC: ER 12:39
PROVIDERS: Physician Assistant
DX: E86.0 Dehydration (principal); N39.0 Urinary tract infection, site not specified; I10 Essential (primary) hypertension; E11.9 Type 2 diabetes mellitus without complications; J44.9 Chronic obstructive pulmonary disease, unspecified; Z88.8 Allergy status to other drugs, medicaments and biological substances; Z88.6 Allergy status to analgesic agent; Z88.5 Allergy status to narcotic agent; Z79.899 Other long term (current) drug therapy; Z87.891 Personal history of nicotine dependence
CPT/HCPCS: 36415; 71045; 80053; 81001; 85025; 87086; 93005; 93010; 96360; 99285-25; A9270; J7030

== ENCOUNTER 2022-08-04 15:56 | Emergency (ER) | payer OTHER ==
[~2022-08-04] VITALS: Ht 167.6 cm; Wt 127.0 kg
== END 2022-08-04 16:39 | disposition home or self-care (01) ==
LOC: ER 15:56
DX: J18.9 Pneumonia, unspecified organism (principal); Z88.5 Allergy status to narcotic agent; Z88.8 Allergy status to other drugs, medicaments and biological substances; Z79.84 Long term (current) use of oral hypoglycemic drugs; Z79.899 Other long term (current) drug therapy; Z87.891 Personal history of nicotine dependence
CPT/HCPCS: 99282

== ENCOUNTER → 2022-08-04 | Outpatient (CLI) | payer OTHER ==
[~2022-08-04] MED LIST changes: +CEPH500 PO; +SPIR50 PO; +VENL75ER PO
[2022-08-04 12:37] LABS: BASOPHILS ABSOLUTE AUTO 0.02 K/mm3 (0.00-0.23); BASOPHILS PERCENT AUTO 0 % (0-2); EOSINOPHILS ABSOLUTE AUTO 0.08 K/mm3 (0.00-0.68); EOSINOPHILS PERCENT AUTO 1 % (0-6); Hematocrit 37.2 % (37.0-53.0); Hemoglobin 12.7 g/dL (13.5-17.5); IMMATURE GRAN ABSOLUTE AUTO 0.02 K/mm3 (0.00-0.10); IMMATURE GRAN PERCENT AUTO 0 % (0-1); LYMPHOCYTES ABSOLUTE AUTO 1.57 K/mm3 (0.84-5.20); LYMPHOCYTES PERCENT AUTO 18 % (21-46); MONOCYTES ABSOLUTE AUTO 0.58 K/mm3 (0.16-1.47); MONOCYTES PERCENT AUTO 7 % (4-13); Mean Corpuscular HGB 32.4 pg (26.0-34.0); Mean Corpuscular HGB Conc 34.1 g/dL (31.5-36.5); Mean Corpuscular Volume 95 fL (80-100); Mean Platelet Volume 10.6 fL (9.1-12.4); NEUTROPHILS PERCENT AUTO 74 % (41-73); Platelet Count 146 K/mm3 (150-400); RDW Coefficient Variation 14.5 % (11.7-14.2); RDW Standard Deviation 50.6 fL (35.1-46.3); Red Blood Cell Count 3.92 M/mm3 (4.30-5.90); White Blood Cell Count 8.57 K/mm3 (4.00-11.30)
[2022-08-04 12:44] LABS: Albumin, Blood 3.6 g/dL (3.4-5.0); Albumin/Globulin Ratio 0.7 (0.8-1.8); Bilirubin, Total 0.9 mg/dL (0.1-1.0); Bun/Creatinine Ratio 17.8 (12.0-20.0); Calcium, Blood 9.1 mg/dL (8.5-10.1); Creatinine, Blood 1.29 mg/dL (0.60-1.20); Globulin, Blood 4.9 g/dL (2.2-4.0); Potassium, Blood 4.1 mmol/L (3.5-5.5); Total Protein, Blood 8.5 g/dL (6.4-8.2)
== END | disposition home or self-care (01) ==
LOC: LAB 12:29 → LAB SHORT 12:29
PROVIDERS: Physician Assistant
DX: J18.1 Lobar pneumonia, unspecified organism (principal); I50.9 Heart failure, unspecified
CPT/HCPCS: 80053; 83880; 85025

== ENCOUNTER 2022-10-19 11:39 | Day surgery (SDC) | payer OTHER ==
[~2022-10-19] VITALS: Ht 167.6 cm; Wt 123.8 kg
[2022-10-19] MEDS ORDERED: ALBU90OI (12:04)
[2022-10-19] MEDS ORDERED: [UNRECOGNIZED DRUG - OTHER] (12:06)
[2022-10-19] MEDS ORDERED: CAMPHOR MENTHOL (12:06)
[2022-10-19] MEDS ORDERED: TERA5 (12:08)
[2022-10-19] MEDS ORDERED: TIOTROPIUM (12:09)
[2022-10-19] MEDS ORDERED: [UNRECOGNIZED DRUG - OTHER] (12:09)
[2022-10-19] MEDS ORDERED: Gormel75 GM (12:10)
--- NOTE | 2022-10-19 12:46 | NUR ---
10/19/22 1246 Jayde Pearce TWO ATTEMPTS AT IV. FIRST ATTEMPT BY RN IN L HAND UNABLE TO ADVANCE CATHETER INTO VEIN. SECOND ATTEMPT IN L AC BY RN SUCRAJANFU.
[2022-10-19 14:00] VITALS: BP 117/59
== END 2022-10-19 13:56 | disposition home or self-care (01) ==
LOC: ORSCSDS 11:39
PROVIDERS: Internal Medicine Gastroenterology
PROC: 0DJ08ZZ Inspection of Upper Intestinal Tract, Via Natural or Artificial Opening Endoscopic (ICD-10-PCS; principal; 2022-10-19 13:00)
DX: K74.60 Unspecified cirrhosis of liver (principal); K21.9 Gastro-esophageal reflux disease without esophagitis; E78.5 Hyperlipidemia, unspecified; Z87.891 Personal history of nicotine dependence; I12.9 Hypertensive chronic kidney disease with stage 1 through stage 4 chronic kidney disease, or unspecified chronic kidney disease; E11.22 Type 2 diabetes mellitus with diabetic chronic kidney disease; N18.9 Chronic kidney disease, unspecified; E66.01 Morbid (severe) obesity due to excess calories; Z68.41 Body mass index [BMI] 40.0-44.9, adult; G47.33 Obstructive sleep apnea (adult) (pediatric); Z79.84 Long term (current) use of oral hypoglycemic drugs; Z79.899 Other long term (current) drug therapy; I69.331 Monoplegia of upper limb following cerebral infarction affecting right dominant side
CPT/HCPCS: 82947; J2704; J7120

== ENCOUNTER 2023-02-10 20:20 | Emergency (ER) | payer OTHER ==
[~2023-02-10] VITALS: Ht 167.6 cm; Wt 122.9 kg
[~2023-02-10 20:20] MED LIST changes: +ALBU90OI; +CAMPHOR MENTHOL; +Gormel75 GM; +TERA5; +TIOTROPIUM; +[UNRECOGNIZED DRUG - OTHER]; +[UNRECOGNIZED DRUG - OTHER]
[2023-02-10 20:45] LABS: BASOPHILS ABSOLUTE AUTO 0.02 K/mm3 (0.00-0.23); BASOPHILS PERCENT AUTO 0 % (0-2); EOSINOPHILS ABSOLUTE AUTO 0.04 K/mm3 (0.00-0.68); EOSINOPHILS PERCENT AUTO 0 % (0-6); Hematocrit 35.2 % (37.0-53.0); Hemoglobin 12.1 g/dL (13.5-17.5); IMMATURE GRAN ABSOLUTE AUTO 0.03 K/mm3 (0.00-0.10); IMMATURE GRAN PERCENT AUTO 0 % (0-1); LYMPHOCYTES ABSOLUTE AUTO 1.25 K/mm3 (0.84-5.20); LYMPHOCYTES PERCENT AUTO 13 % (21-46); MONOCYTES ABSOLUTE AUTO 1.01 K/mm3 (0.16-1.47); MONOCYTES PERCENT AUTO 10 % (4-13); Mean Corpuscular HGB 31.8 pg (26.0-34.0); Mean Corpuscular HGB Conc 34.4 g/dL (31.5-36.5); Mean Corpuscular Volume 93 fL (80-100); Mean Platelet Volume 11.6 fL (9.1-12.4); NEUTROPHILS ABSOLUTE AUTO 7.57 K/mm3 (1.96-9.15); NEUTROPHILS PERCENT AUTO 76 % (41-73); Platelet Count 153 K/mm3 (150-400); RDW Coefficient Variation 13.6 % (11.7-14.2); RDW Standard Deviation 46.4 fL (35.1-46.3); White Blood Cell Count 9.92 K/mm3 (4.00-11.30)
[2023-02-10 21:37] LABS: Albumin, Blood 3.1 g/dL (3.4-5.0); Albumin/Globulin Ratio 0.8 (0.8-1.8); Bilirubin, Total 0.8 mg/dL (0.1-1.0); Bun/Creatinine Ratio 21.1 (12.0-20.0); Calcium, Blood 8.7 mg/dL (8.5-10.1); Creatinine, Blood 1.28 mg/dL (0.60-1.20); Globulin, Blood 3.9 g/dL (2.2-4.0); Potassium, Blood 3.7 mmol/L (3.5-5.5)
[2023-02-10 23:23] LABS: Magnesium, Blood 1.6 mg/dL (1.6-2.4); Thyroid Stimulating Hormone 3.21 uIU/mL (0.360-4.800)
[2023-02-11 00:28] LABS: Influenza A, PCR NEGATIVE (NEGATIVE); Influenza B, PCR NEGATIVE (NEGATIVE); Resp Syncytial Virus, PCR NEGATIVE (NEGATIVE); SARS-Cov-2 (COVID-19) PCR, MMC NEGATIVE (NEGATIVE)
[2023-02-11 01:50] LABS: Source, Urine Clean Catch
[2023-02-11 01:52] LABS: Blood, Urine 5+ (Neg); Glucose Qualitative, Urine Neg (Neg); Ketones, Urine Neg (Neg); Leukocyte Esterase, Urine 2+ (Neg); Nitrite, Urine Neg (Neg); Protein, Urine 3+ (Neg); Specific Gravity, Urine 1.015 (1.003-1.022); Urobilinogen, Urine 2+ (Normal)
[2023-02-11 01:54] LABS: Appearance, Urine Hazy (Clear); Bilirubin, Urine 1+ (Neg); Color, Urine Yellow (P-Yellow)
[2023-02-11 02:00] LABS: Bacteria Mod /hpf; White Blood Cells, Urine 25-50 /hpf (0-5)
[2023-02-11 02:01] LABS: Amorphous Mod (0-Heavy); Squamous Epithelial Cells Few /hpf (Few)
[2023-02-11 05:00] VITALS: BP 142/58
== END 2023-02-11 05:37 | disposition short-term general hospital (02) ==
LOC: ER 20:20
PROVIDERS: Student in an Organized Health Care Education/Training Program
DX: N20.2 Calculus of kidney with calculus of ureter (principal); N39.0 Urinary tract infection, site not specified; Z88.8 Allergy status to other drugs, medicaments and biological substances; Z88.5 Allergy status to narcotic agent; Z88.6 Allergy status to analgesic agent; Z79.899 Other long term (current) drug therapy; Z79.84 Long term (current) use of oral hypoglycemic drugs; I10 Essential (primary) hypertension; E11.9 Type 2 diabetes mellitus without complications; J44.9 Chronic obstructive pulmonary disease, unspecified; Z87.891 Personal history of nicotine dependence
CPT/HCPCS: 0241U; 51701; 71046; 72131; 80053; 81001; 83605; 83735; 83880; 84443; 84484; 85025; 87086; 93005; 93010; 96365; 96367; 99285-25; J0696; J3370; J7030

== ENCOUNTER 2023-03-03 13:54 | Emergency (ER) | payer OTHER ==
[~2023-03-03] VITALS: Ht 180.3 cm; Wt 181.4 kg
[~2023-03-03 13:54] MED LIST changes: -Gormel75 GM; +Gormel75 GM TOP; -TERA5
[2023-03-03 15:43] VITALS: BP 122/76
== END 2023-03-03 16:52 | disposition home or self-care (01) ==
LOC: ER 13:54
DX: S09.90XA Unspecified injury of head, initial encounter (principal); S16.1XXA Strain of muscle, fascia and tendon at neck level, initial encounter; M25.511 Pain in right shoulder; G89.29 Other chronic pain; W06.XXXA Fall from bed, initial encounter; I10 Essential (primary) hypertension; G47.30 Sleep apnea, unspecified; Z86.73 Personal history of transient ischemic attack (TIA), and cerebral infarction without residual deficits; E11.9 Type 2 diabetes mellitus without complications; J44.9 Chronic obstructive pulmonary disease, unspecified; Z88.1 Allergy status to other antibiotic agents; Z88.6 Allergy status to analgesic agent; Z79.84 Long term (current) use of oral hypoglycemic drugs; Z79.51 Long term (current) use of inhaled steroids; Z79.899 Other long term (current) drug therapy
CPT/HCPCS: 70450; 72125; 73030; 96374; 99284-25; A9270; J3010

== ENCOUNTER 2023-03-04 12:43 | Inpatient (IN) | payer OTHER ==
[~2023-03-04] VITALS: Ht 182.9 cm; Wt 119.1 kg
[2023-03-04 13:30] LABS: BASOPHILS ABSOLUTE AUTO 0.03 K/mm3 (0.00-0.23); BASOPHILS PERCENT AUTO 0 % (0-2); EOSINOPHILS PERCENT AUTO 0 % (0-6); Hematocrit 36.4 % (37.0-53.0); IMMATURE GRAN ABSOLUTE AUTO 0.05 K/mm3 (0.00-0.10); IMMATURE GRAN PERCENT AUTO 1 % (0-1); LYMPHOCYTES ABSOLUTE AUTO 1.12 K/mm3 (0.84-5.20); LYMPHOCYTES PERCENT AUTO 10 % (21-46); MONOCYTES ABSOLUTE AUTO 0.93 K/mm3 (0.16-1.47); MONOCYTES PERCENT AUTO 8 % (4-13); Mean Corpuscular HGB 30.7 pg (26.0-34.0); Mean Corpuscular Volume 93 fL (80-100); NEUTROPHILS ABSOLUTE AUTO 8.96 K/mm3 (1.96-9.15); NEUTROPHILS PERCENT AUTO 81 % (41-73); Platelet Count 163 K/mm3 (150-400); RDW Coefficient Variation 14.2 % (11.7-14.2); RDW Standard Deviation 48.5 fL (35.1-46.3); Red Blood Cell Count 3.91 M/mm3 (4.30-5.90); White Blood Cell Count 11.09 K/mm3 (4.00-11.30)
[2023-03-04 13:48] LABS: Albumin, Blood 3.5 g/dL (3.4-5.0); Albumin/Globulin Ratio 0.8 (0.8-1.8); Bilirubin, Total 0.9 mg/dL (0.1-1.0); Bun/Creatinine Ratio 25.3 (12.0-20.0); Calcium, Blood 8.8 mg/dL (8.5-10.1); Creatinine, Blood 1.86 mg/dL (0.60-1.20); Globulin, Blood 4.2 g/dL (2.2-4.0); Total Protein, Blood 7.7 g/dL (6.4-8.2)
[2023-03-04 14:25] LABS: Source, Urine Clean Catch
[2023-03-04 14:38] LABS: Bilirubin, Urine Neg (Neg); Blood, Urine 5+ (Neg); Glucose Qualitative, Urine Neg (Neg); Ketones, Urine Neg (Neg); Leukocyte Esterase, Urine 3+ (Neg); Nitrite, Urine Neg (Neg); Protein, Urine 3+ (Neg); Specific Gravity, Urine 1.015 (1.003-1.022); Urobilinogen, Urine NORM (Normal)
[2023-03-04 16:09] LABS: Appearance, Urine Hazy (Clear); Color, Urine Yellow (P-Yellow)
[2023-03-04 16:11] LABS: White Blood Cells, Urine 50-100 /hpf (0-5)
[2023-03-04 16:12] LABS: Bacteria Many /hpf; Red Blood Cells, Urine 50-100 /hpf (0-2); Squamous Epithelial Cells Mod /hpf (Few); Yeast/Fungi Urine Mod /hpf
[2023-03-04 16:13] LABS: Amorphous Mod (0-Heavy)
[2023-03-04 18:02] VITALS: BP 131/44
--- NOTE | 2023-03-04 18:49 | NUR ---
ADMIT AT 1800- PT BROUGHT TO FLOOR IN STABLE CONDITION. PT IS AAOX3-DISORIENTED TO EXACT DATE. KNEW IT WAS 2022 AND FEBRUARY.
[2023-03-04 19:24] VITALS: BP 135/61
[2023-03-05 03:22] VITALS: BP 165/57
[2023-03-05 04:54] LABS: Albumin, Blood 3.1 g/dL (3.4-5.0); Albumin/Globulin Ratio 0.9 (0.8-1.8); Bilirubin, Total 0.8 mg/dL (0.1-1.0); Bun/Creatinine Ratio 23.4 (12.0-20.0); Calcium, Blood 8.1 mg/dL (8.5-10.1); Creatinine, Blood 1.67 mg/dL (0.60-1.20); Globulin, Blood 3.6 g/dL (2.2-4.0); Potassium, Blood 4.5 mmol/L (3.5-5.5); Total Protein, Blood 6.7 g/dL (6.4-8.2)
[2023-03-05 05:30] LABS: BASOPHILS ABSOLUTE AUTO 0.02 K/mm3 (0.00-0.23); BASOPHILS PERCENT AUTO 0 % (0-2); EOSINOPHILS PERCENT AUTO 0 % (0-6); Hematocrit 31.6 % (37.0-53.0); Hemoglobin 10.5 g/dL (13.5-17.5); IMMATURE GRAN ABSOLUTE AUTO 0.02 K/mm3 (0.00-0.10); IMMATURE GRAN PERCENT AUTO 0 % (0-1); LYMPHOCYTES ABSOLUTE AUTO 0.82 K/mm3 (0.84-5.20); LYMPHOCYTES PERCENT AUTO 11 % (21-46); MONOCYTES ABSOLUTE AUTO 0.66 K/mm3 (0.16-1.47); MONOCYTES PERCENT AUTO 9 % (4-13); Mean Corpuscular HGB 31.1 pg (26.0-34.0); Mean Corpuscular HGB Conc 33.2 g/dL (31.5-36.5); Mean Corpuscular Volume 94 fL (80-100); Mean Platelet Volume 10.6 fL (9.1-12.4); NEUTROPHILS ABSOLUTE AUTO 6.08 K/mm3 (1.96-9.15); NEUTROPHILS PERCENT AUTO 80 % (41-73); Platelet Count 123 K/mm3 (150-400); RDW Coefficient Variation 14.3 % (11.7-14.2); RDW Standard Deviation 48.7 fL (35.1-46.3); Red Blood Cell Count 3.38 M/mm3 (4.30-5.90)
[2023-03-05 06:29] LABS: Influenza A, PCR NEGATIVE (NEGATIVE); Influenza B, PCR NEGATIVE (NEGATIVE); Resp Syncytial Virus, PCR NEGATIVE (NEGATIVE); SARS-Cov-2 (COVID-19) PCR, MMC NEGATIVE (NEGATIVE)
[2023-03-05 07:29] VITALS: BP 135/60
--- NOTE | 2023-03-05 07:45 | NUR ---
Shift Summary Pt was profoundly weak, fatigued and somnolent throughout the night, he found it difficult to drink from his water cup. Pt required total care for bathroom usage and bed changes. His oral tempurature was elevated at 101.4, he was given 650 mg Tylenol. After 1 hour his temp was up to 102.5. Removed blankets, turned down room temp, applied ice packs. One hour later his oral temp was 98.7. Pt also had one loose watery stool. I called the hospitalist who ordered a covid swab which came back negative. Pt had frequent incontinent voids, condom cath appplied and currently draining urine. Pt somnolent t/o the night, easily arousable but quickly back to sleep. AOx3-4, cooperative with care, on bedrest d/t weakness.
[2023-03-05] MEDS ORDERED: FINA5 PO (10:27)
[2023-03-05] MEDS ORDERED: LACT PO (10:27)
[2023-03-05] MEDS ORDERED: MYRBETRIQ25 MG PO (10:29)
[2023-03-05] MEDS ORDERED: ROSU5 PO (10:30)
[2023-03-05 15:06] VITALS: BP 144/61
--- NOTE | 2023-03-05 17:53 | NUR ---
SHIFT SUMMARY NO ACUTE EVENTS DURING SHIFT. BED IN LOW POSITION, BED ALARM ON DUE TO FALL RISK, CALL LIGHT IN REACH. PATIENT CALLS APPROPRIATELY. WILL CONTINUE TO MONITOR.
[2023-03-05 19:05] VITALS: BP 162/67
[2023-03-06 02:58] VITALS: BP 141/59
[2023-03-06 06:05] LABS: BASOPHILS ABSOLUTE AUTO 0.02 K/mm3 (0.00-0.23); BASOPHILS PERCENT AUTO 0 % (0-2); EOSINOPHILS ABSOLUTE AUTO 0.01 K/mm3 (0.00-0.68); EOSINOPHILS PERCENT AUTO 0 % (0-6); Hematocrit 32.5 % (37.0-53.0); Hemoglobin 10.7 g/dL (13.5-17.5); IMMATURE GRAN ABSOLUTE AUTO 0.02 K/mm3 (0.00-0.10); IMMATURE GRAN PERCENT AUTO 0 % (0-1); LYMPHOCYTES ABSOLUTE AUTO 0.92 K/mm3 (0.84-5.20); LYMPHOCYTES PERCENT AUTO 17 % (21-46); MONOCYTES ABSOLUTE AUTO 0.61 K/mm3 (0.16-1.47); MONOCYTES PERCENT AUTO 11 % (4-13); Mean Corpuscular HGB 31.1 pg (26.0-34.0); Mean Corpuscular HGB Conc 32.9 g/dL (31.5-36.5); Mean Corpuscular Volume 95 fL (80-100); Mean Platelet Volume 11.1 fL (9.1-12.4); NEUTROPHILS ABSOLUTE AUTO 3.92 K/mm3 (1.96-9.15); NEUTROPHILS PERCENT AUTO 71 % (41-73); Platelet Count 119 K/mm3 (150-400); RDW Coefficient Variation 14.5 % (11.7-14.2); RDW Standard Deviation 49.9 fL (35.1-46.3); Red Blood Cell Count 3.44 M/mm3 (4.30-5.90)
[2023-03-06 06:33] LABS: Bun/Creatinine Ratio 22.3 (12.0-20.0); Creatinine, Blood 1.48 mg/dL (0.60-1.20); Potassium, Blood 4.1 mmol/L (3.5-5.5)
--- NOTE | 2023-03-06 06:44 | NUR ---
Shift Summary Frequent incontinent urinations and small loose bowel movements. Pt wore his home CPAP tonight and slept well t/o the night. On tele with no events. No elevated tempurature tonight. Pt somnolent and lethargic, arousable but falls back to sleep quickly. AOx4, bedrest.
[2023-03-06 07:31] VITALS: BP 150/59
[2023-03-06 15:22] VITALS: BP 160/75
--- NOTE | 2023-03-06 18:15 | NUR ---
SHIFT SUMMARY NO ACUTE EVENTS DURING SHIFT. PATIENT SITTING UP IN CHAIR FOR LUNCH, TRANSFERRED WITH OT.COOPERATIVE WITH CARE. BED IN LOW POSITION, CALL LIGHT IN REACH. PATIENT CALLS APPROPRIATELY.
[2023-03-06 19:06] VITALS: BP 172/76
[2023-03-06 20:45] VITALS: BP 154/61
--- NOTE | 2023-03-07 01:37 | NUR ---
NURSE NOTE ALERT AND JADE, MED TELE SR AT 65. RECEIVING IV ANTIBIOTICS. CPAP IN USE AFTER RT SET IT UP. RESPIRATIONS EVEN. CALL LIGHT IN REACH. RECEIVED FIRE IGNITION TEAACHING EARLIER. WILL CONTINUE TO MONITOR
[2023-03-07 05:34] VITALS: BP 162/63
--- NOTE | 2023-03-07 05:58 | NUR ---
MAP MAKER SUMMARY BP ELEVATED OTHERWISE VSS. IV ANTIBIOTICS ADMINISTERED, TOLERATED MEDS WELL. INCONT OF FECES AND URINE A FEW TIMES, CLEANED AND REPOSITIONED. HOB ELEVATED AND CPAP IN USE. MED TELE SR AT 65. AWAKE AT INTERVALS. CALL LIGHT IN REACH. WILL CONTINUE TO MONITOR
[2023-03-07 06:03] LABS: BASOPHILS ABSOLUTE AUTO 0.02 K/mm3 (0.00-0.23); BASOPHILS PERCENT AUTO 0 % (0-2); EOSINOPHILS ABSOLUTE AUTO 0.03 K/mm3 (0.00-0.68); EOSINOPHILS PERCENT AUTO 1 % (0-6); Hematocrit 31.2 % (37.0-53.0); Hemoglobin 10.3 g/dL (13.5-17.5); IMMATURE GRAN ABSOLUTE AUTO 0.01 K/mm3 (0.00-0.10); IMMATURE GRAN PERCENT AUTO 0 % (0-1); LYMPHOCYTES ABSOLUTE AUTO 1.03 K/mm3 (0.84-5.20); LYMPHOCYTES PERCENT AUTO 21 % (21-46); MONOCYTES ABSOLUTE AUTO 0.58 K/mm3 (0.16-1.47); MONOCYTES PERCENT AUTO 12 % (4-13); Mean Corpuscular HGB 31.4 pg (26.0-34.0); Mean Corpuscular Volume 95 fL (80-100); Mean Platelet Volume 10.9 fL (9.1-12.4); NEUTROPHILS ABSOLUTE AUTO 3.32 K/mm3 (1.96-9.15); NEUTROPHILS PERCENT AUTO 67 % (41-73); Platelet Count 108 K/mm3 (150-400); RDW Coefficient Variation 14.3 % (11.7-14.2); RDW Standard Deviation 50.1 fL (35.1-46.3); Red Blood Cell Count 3.28 M/mm3 (4.30-5.90); White Blood Cell Count 4.99 K/mm3 (4.00-11.30)
[2023-03-07 06:28] LABS: Bun/Creatinine Ratio 19.3 (12.0-20.0); Calcium, Blood 7.8 mg/dL (8.5-10.1); Creatinine, Blood 1.35 mg/dL (0.60-1.20); Potassium, Blood 3.8 mmol/L (3.5-5.5)
[2023-03-07 07:36] VITALS: BP 170/67
--- NOTE | 2023-03-07 08:15 | NUR ---
CALLED DR. SCHWARTZ TO RESTART THE PT'S LISINOPRIL DUE TO HTN SINCE ADMISSION.
[2023-03-07 12:26] VITALS: BP 116/58
[2023-03-07 15:13] VITALS: BP 148/65
--- NOTE | 2023-03-07 16:46 | NUR ---
SHIFT SUMMARY PT IS VERY [place], A&OX4, AND PLEASANT. HE IS A Q2 HR TURN, AND A 1-2P TX W/ FWW AND GAIT BELT. THE PT HAS BEEN UP IN THE CHAIR MULTIPLE TIMES TODAY, AND HAS BEEN USING THE BSC. HE KNOWS WHEN HE HAS TO USE THE RESTROOM BUT HE HAS URGENCY WITH BOWEL AND URINE. HIS BP WAS ELEVATED, AND WHEN I WAS LOOKING THROUGH HIS HOME MEDICATIONS I NOTICED HE HAD NOT BEEN RECEIVING HIS LISINOPRIL. WE RESTARTED IT AND NOW HIS BP IS STABLE. PT HAS BEEN SR 70 S-80 S ON TELE. NO ACUTE EVENTS THIS SHIFT. BED ALARM ON, CALL LIGHT IN REACH, AND FIRE IGNITION RISK ASSESSED AND EDUCATION WAS PROVIDED.
[2023-03-07 19:12] VITALS: BP 174/67
--- NOTE | 2023-03-08 00:12 | NUR ---
NURSE NOTE BP ELEVATED, OTHERWISE VSS. RECEIVED ANTIHYPERTENSIVE MED, WILL MONITOR. HOB ELEVATED. REPOSITIONED INTERMITTENTLY FOR COMFORT AND SKIN MAINTENANCE. INCONT OF URINE A FEW TIMES, CHANGED. IV ANTIBIOTICS INFUSING, SEE MAR FOR DETAILS. RECEIVED FIRE IGNITION TEACHING KERRI. CALL LIGHT IN REACH.
--- NOTE | 2023-03-08 03:22 | NUR ---
MAIL ORDER SORTER SUMMARY BP ELEVATED, OTHERWISE, VSS. ANTIHYPERTENSIVE MEDS ADMINISTERED - SEE MAR FOR DETAILS. WILL CONTINUE TO MONITOR. HOB ELEVATED AND CPAP IN USE. O2 SATS IN THE 90'S. INCONT OF URINE AND FECES- CLEANED. REPOSITIONED INTERMITTENTLY FOR COMFORT AND SKIN MAINTENANCE. IV ANTIBIOTICS INFUSING. HAS BEEN RESTING QUIETLY WITH FEW INTERRUPTIONS. CALL LIGHT IN REACH.
[2023-03-08 04:30] VITALS: BP 141/61
[2023-03-08 05:41] LABS: Calcium, Blood 7.7 mg/dL (8.5-10.1); Creatinine, Blood 1.33 mg/dL (0.60-1.20); Potassium, Blood 3.9 mmol/L (3.5-5.5)
[2023-03-08 05:46] LABS: BASOPHILS ABSOLUTE AUTO 0.01 K/mm3 (0.00-0.23); BASOPHILS PERCENT AUTO 0 % (0-2); EOSINOPHILS ABSOLUTE AUTO 0.07 K/mm3 (0.00-0.68); EOSINOPHILS PERCENT AUTO 2 % (0-6); Hemoglobin 10.1 g/dL (13.5-17.5); IMMATURE GRAN ABSOLUTE AUTO 0.02 K/mm3 (0.00-0.10); IMMATURE GRAN PERCENT AUTO 0 % (0-1); LYMPHOCYTES ABSOLUTE AUTO 0.93 K/mm3 (0.84-5.20); LYMPHOCYTES PERCENT AUTO 20 % (21-46); MONOCYTES ABSOLUTE AUTO 0.44 K/mm3 (0.16-1.47); MONOCYTES PERCENT AUTO 10 % (4-13); Mean Corpuscular HGB Conc 33.7 g/dL (31.5-36.5); Mean Corpuscular Volume 92 fL (80-100); NEUTROPHILS ABSOLUTE AUTO 3.18 K/mm3 (1.96-9.15); NEUTROPHILS PERCENT AUTO 68 % (41-73); Platelet Count 119 K/mm3 (150-400); RDW Coefficient Variation 14.2 % (11.7-14.2); RDW Standard Deviation 48.4 fL (35.1-46.3); Red Blood Cell Count 3.26 M/mm3 (4.30-5.90); White Blood Cell Count 4.65 K/mm3 (4.00-11.30)
[2023-03-08 07:13] VITALS: BP 151/62
[2023-03-08 10:51] VITALS: BP 148/60
[2023-03-08 12:27] LABS: Influenza A, PCR NEGATIVE (NEGATIVE); Influenza B, PCR NEGATIVE (NEGATIVE); Resp Syncytial Virus, PCR NEGATIVE (NEGATIVE); SARS-Cov-2 (COVID-19) PCR, MMC NEGATIVE (NEGATIVE)
--- NOTE | 2023-03-08 15:31 | NUR ---
PT DISCHARGED TO [facility]. REPORT GIVEN TO ANTHONY AT FACILITY. BILATERAL IV'S AND TELE REMOVED. PT TOLERATED WELL. NEW ATTENDS PLACED. ALL BELINGINS GATHERED, INCLUDING HOME CPAP MACHINE. DC PACKET GIVEN TO TRANSPORTER TO GIVE TO [facility]. PT TAKEN BY WHEELCHAIR TO TRANSPORTING VEHICLE.
[2023-03-08] MEDS ORDERED: OMEP20ER PO (16:56)
[2023-03-08] MEDS ORDERED: AMLO10 PO (16:56)
[2023-03-08] MEDS ORDERED: AMOCLA875 PO (16:57)
== END 2023-03-08 14:26 | DRG 872 ==
LOC: ER 12:43 → MEDS 12:44 → ENPENDDIS 03-08 12:32 → MEDS 03-08 14:26
PROVIDERS: Student in an Organized Health Care Education/Training Program; ADMIT Internal Medicine
DX: A41.9 Sepsis, unspecified organism (principal); Z68.43 Body mass index [BMI] 50.0-59.9, adult; N17.9 Acute kidney failure, unspecified; N39.0 Urinary tract infection, site not specified; G81.91 Hemiplegia, unspecified affecting right dominant side; E87.21 Acute metabolic acidosis; R65.20 Severe sepsis without septic shock; Z20.822 Contact with and (suspected) exposure to COVID-19; G89.29 Other chronic pain; M54.2 Cervicalgia; M54.9 Dorsalgia, unspecified; N40.0 Benign prostatic hyperplasia without lower urinary tract symptoms; N18.31 Chronic kidney disease, stage 3a; I12.9 Hypertensive chronic kidney disease with stage 1 through stage 4 chronic kidney disease, or unspecified chronic kidney disease; G47.33 Obstructive sleep apnea (adult) (pediatric); E11.22 Type 2 diabetes mellitus with diabetic chronic kidney disease; K21.9 Gastro-esophageal reflux disease without esophagitis; E78.5 Hyperlipidemia, unspecified; F32.A Depression, unspecified; J44.9 Chronic obstructive pulmonary disease, unspecified; K74.60 Unspecified cirrhosis of liver; Z96.652 Presence of left artificial knee joint; Z88.6 Allergy status to analgesic agent; Z88.5 Allergy status to narcotic agent; Z88.8 Allergy status to other drugs, medicaments and biological substances; Z79.84 Long term (current) use of oral hypoglycemic drugs; Z79.899 Other long term (current) drug therapy; Z86.73 Personal history of transient ischemic attack (TIA), and cerebral infarction without residual deficits; Z90.49 Acquired absence of other specified parts of digestive tract; Z98.890 Other specified postprocedural states; Z87.891 Personal history of nicotine dependence
CPT/HCPCS: 0241U; 36415; 71045; 80048; 80053; 81001; 83605; 83735; 85025; 87040; 87086; 93005; 93010; 94660; 94762; 96361; 96365; 96366; 96372; 96375; 96376; 97110; 97162; 97166; 97530; 97535; 99285-25; A9270; G0378; J1644; J2270; J2543; J7030; J7050

== ENCOUNTER 2023-06-03 21:44 | Emergency (ER) | payer OTHER ==
[~2023-06-03] VITALS: Ht 172.7 cm; Wt 114.3 kg
[~2023-06-03 21:44] MED LIST changes: +AMLO10 PO; +FINA5 PO; +LACT PO; +MYRBETRIQ25 MG PO; +OMEP20ER PO
[2023-06-03 22:55] LABS: Source, Urine Clean Catch
[2023-06-03 22:57] LABS: BASOPHILS ABSOLUTE AUTO 0.02 K/mm3 (0.00-0.23); BASOPHILS PERCENT AUTO 0 % (0-2); EOSINOPHILS ABSOLUTE AUTO 0.23 K/mm3 (0.00-0.68); EOSINOPHILS PERCENT AUTO 3 % (0-6); Hemoglobin 11.3 g/dL (13.5-17.5); IMMATURE GRAN ABSOLUTE AUTO 0.03 K/mm3 (0.00-0.10); IMMATURE GRAN PERCENT AUTO 0 % (0-1); LYMPHOCYTES ABSOLUTE AUTO 1.49 K/mm3 (0.84-5.20); LYMPHOCYTES PERCENT AUTO 20 % (21-46); MONOCYTES ABSOLUTE AUTO 0.48 K/mm3 (0.16-1.47); MONOCYTES PERCENT AUTO 6 % (4-13); Mean Corpuscular HGB 30.6 pg (26.0-34.0); Mean Corpuscular HGB Conc 32.3 g/dL (31.5-36.5); Mean Corpuscular Volume 95 fL (80-100); Mean Platelet Volume 11.5 fL (9.1-12.4); NEUTROPHILS ABSOLUTE AUTO 5.26 K/mm3 (1.96-9.15); NEUTROPHILS PERCENT AUTO 70 % (41-73); Platelet Count 153 K/mm3 (150-400); RDW Coefficient Variation 14.5 % (11.7-14.2); RDW Standard Deviation 50.2 fL (35.1-46.3); Red Blood Cell Count 3.69 M/mm3 (4.30-5.90); White Blood Cell Count 7.51 K/mm3 (4.00-11.30)
[2023-06-03 22:57] LABS: Bilirubin, Urine Neg (Neg); Blood, Urine 3+ (Neg); Glucose Qualitative, Urine Neg (Neg); Ketones, Urine Neg (Neg); Leukocyte Esterase, Urine 2+ (Neg); Nitrite, Urine Neg (Neg); Protein, Urine 2+ (Neg); Specific Gravity, Urine 1.015 (1.003-1.022); Urobilinogen, Urine NORM (Normal)
[2023-06-03 23:07] LABS: Appearance, Urine Hazy (Clear); Color, Urine Yellow (P-Yellow)
[2023-06-03 23:08] LABS: Amorphous Light (0-Heavy); Bacteria Mod /hpf; Mucus Light (0-Heavy); Red Blood Cells, Urine 0-2 /hpf (0-2); Squamous Epithelial Cells Mod /hpf (Few); Yeast/Fungi Urine Few /hpf
[2023-06-03 23:23] LABS: Albumin, Blood 3.8 g/dL (3.4-5.0); Albumin/Globulin Ratio 0.9 (0.8-1.8); Bilirubin, Total 0.3 mg/dL (0.1-1.0); Bun/Creatinine Ratio 27.2 (12.0-20.0); Calcium, Blood 9.1 mg/dL (8.5-10.1); Creatinine, Blood 1.25 mg/dL (0.60-1.20); Globulin, Blood 4.2 g/dL (2.2-4.0); Potassium, Blood 4.1 mmol/L (3.5-5.5)
[2023-06-04 01:06] LABS: Influenza A, PCR NEGATIVE (NEGATIVE); Influenza B, PCR NEGATIVE (NEGATIVE); Resp Syncytial Virus, PCR NEGATIVE (NEGATIVE); SARS-Cov-2 (COVID-19) PCR, MMC NEGATIVE (NEGATIVE)
[2023-06-04 01:08] LABS: Source, Urine Straight Cath
[2023-06-04 01:11] LABS: Bilirubin, Urine Neg (Neg); Blood, Urine 2+ (Neg); Glucose Qualitative, Urine Neg (Neg); Ketones, Urine Neg (Neg); Leukocyte Esterase, Urine 2+ (Neg); Nitrite, Urine Neg (Neg); Protein, Urine 2+ (Neg); Specific Gravity, Urine 1.015 (1.003-1.022); Urobilinogen, Urine NORM (Normal)
[2023-06-04 01:43] LABS: Appearance, Urine Clear (Clear); Color, Urine Yellow (P-Yellow)
[2023-06-04 01:44] VITALS: BP 134/46
[2023-06-04 01:44] LABS: Bacteria Mod /hpf; Red Blood Cells, Urine 0-2 /hpf (0-2); Squamous Epithelial Cells Few /hpf (Few); White Blood Cells, Urine 25-50 /hpf (0-5)
[2023-06-04] MEDS ORDERED: CEPH500 PO (01:56)
== END 2023-06-04 03:09 | disposition home or self-care (01) ==
LOC: ER 21:44
PROVIDERS: Emergency Medicine; Student in an Organized Health Care Education/Training Program
DX: N39.0 Urinary tract infection, site not specified (principal); R06.02 Shortness of breath; R45.1 Restlessness and agitation; I10 Essential (primary) hypertension; E11.9 Type 2 diabetes mellitus without complications; Z11.52 Encounter for screening for COVID-19; G47.30 Sleep apnea, unspecified; J44.9 Chronic obstructive pulmonary disease, unspecified; Z87.891 Personal history of nicotine dependence; Z79.899 Other long term (current) drug therapy; Z88.6 Allergy status to analgesic agent; Z91.048 Other nonmedicinal substance allergy status
CPT/HCPCS: 0241U; 51701; 80053; 81001; 82947; 85025; 87086; 93005; 93010; 99284-25; A9270

== ENCOUNTER 2023-06-25 13:12 | Emergency (ER) | payer OTHER ==
[~2023-06-25] VITALS: Ht 167.6 cm; Wt 114.8 kg
[2023-06-25 14:10] LABS: BASOPHILS ABSOLUTE AUTO 0.02 K/mm3 (0.00-0.23); BASOPHILS PERCENT AUTO 0 % (0-2); EOSINOPHILS ABSOLUTE AUTO 0.02 K/mm3 (0.00-0.68); EOSINOPHILS PERCENT AUTO 0 % (0-6); Hematocrit 39.4 % (37.0-53.0); Hemoglobin 12.8 g/dL (13.5-17.5); IMMATURE GRAN ABSOLUTE AUTO 0.02 K/mm3 (0.00-0.10); IMMATURE GRAN PERCENT AUTO 0 % (0-1); LYMPHOCYTES ABSOLUTE AUTO 0.85 K/mm3 (0.84-5.20); LYMPHOCYTES PERCENT AUTO 8 % (21-46); MONOCYTES ABSOLUTE AUTO 0.74 K/mm3 (0.16-1.47); MONOCYTES PERCENT AUTO 7 % (4-13); Mean Corpuscular HGB 30.8 pg (26.0-34.0); Mean Corpuscular HGB Conc 32.5 g/dL (31.5-36.5); Mean Corpuscular Volume 95 fL (80-100); Mean Platelet Volume 10.8 fL (9.1-12.4); NEUTROPHILS ABSOLUTE AUTO 8.74 K/mm3 (1.96-9.15); NEUTROPHILS PERCENT AUTO 84 % (41-73); Platelet Count 122 K/mm3 (150-400); RDW Coefficient Variation 14.4 % (11.7-14.2); Red Blood Cell Count 4.15 M/mm3 (4.30-5.90); White Blood Cell Count 10.39 K/mm3 (4.00-11.30)
[2023-06-25 14:22] LABS: Albumin, Blood 3.5 g/dL (3.4-5.0); Albumin/Globulin Ratio 0.8 (0.8-1.8); Bilirubin, Total 0.8 mg/dL (0.1-1.0); Calcium, Blood 8.7 mg/dL (8.5-10.1); Creatinine, Blood 1.16 mg/dL (0.60-1.20); Globulin, Blood 4.6 g/dL (2.2-4.0); Total Protein, Blood 8.1 g/dL (6.4-8.2)
[2023-06-25 18:33] LABS: Influenza A, PCR NEGATIVE (NEGATIVE); Influenza B, PCR NEGATIVE (NEGATIVE); Resp Syncytial Virus, PCR NEGATIVE (NEGATIVE); SARS-Cov-2 (COVID-19) PCR, MMC NEGATIVE (NEGATIVE)
[2023-06-25 18:39] LABS: Source, Urine Straight Cath
[2023-06-25 18:44] LABS: Appearance, Urine Hazy (Clear); Bilirubin, Urine Neg (Neg); Blood, Urine 3+ (Neg); Color, Urine Yellow (P-Yellow); Glucose Qualitative, Urine Neg (Neg); Ketones, Urine Neg (Neg); Leukocyte Esterase, Urine 2+ (Neg); Nitrite, Urine Neg (Neg); Protein, Urine 3+ (Neg); Specific Gravity, Urine 1.015 (1.003-1.022); Urobilinogen, Urine 1+ (Normal)
[2023-06-25 18:54] LABS: Bacteria Few /hpf; Squamous Epithelial Cells Few /hpf (Few)
[2023-06-25 18:55] LABS: Hyaline Casts 0-2 /lpf (0-2)
[2023-06-25 18:56] LABS: Yeast/Fungi Urine Mod /hpf
[2023-06-25] MEDS ORDERED: ALBU90OI (19:12)
[2023-06-25] MEDS ORDERED: CEPH500 PO (19:40)
[2023-06-25 20:45] VITALS: BP 126/50
== END 2023-06-25 21:05 | disposition home or self-care (01) ==
LOC: ER 13:12
PROVIDERS: Emergency Medicine; Physician Assistant
DX: N39.0 Urinary tract infection, site not specified (principal); R53.1 Weakness; Z11.52 Encounter for screening for COVID-19; Z87.891 Personal history of nicotine dependence; Z79.899 Other long term (current) drug therapy
CPT/HCPCS: 0241U; 71046; 80053; 81001; 83735; 85025; 93005; 93010; 96361; 96374; 99285-25; J0696; J7030

== ENCOUNTER → 2023-08-17 | Outpatient (CLI) | payer OTHER ==
[2023-08-17 11:32] LABS: BASOPHILS ABSOLUTE AUTO 0.02 K/mm3 (0.00-0.23); BASOPHILS PERCENT AUTO 0 % (0-2); EOSINOPHILS ABSOLUTE AUTO 0.18 K/mm3 (0.00-0.68); EOSINOPHILS PERCENT AUTO 3 % (0-6); Hematocrit 35.9 % (37.0-53.0); Hemoglobin 11.7 g/dL (13.5-17.5); IMMATURE GRAN ABSOLUTE AUTO 0.02 K/mm3 (0.00-0.10); IMMATURE GRAN PERCENT AUTO 0 % (0-1); LYMPHOCYTES ABSOLUTE AUTO 1.44 K/mm3 (0.84-5.20); LYMPHOCYTES PERCENT AUTO 20 % (21-46); MONOCYTES ABSOLUTE AUTO 0.52 K/mm3 (0.16-1.47); MONOCYTES PERCENT AUTO 7 % (4-13); Mean Corpuscular HGB 31.4 pg (26.0-34.0); Mean Corpuscular HGB Conc 32.6 g/dL (31.5-36.5); Mean Corpuscular Volume 96 fL (80-100); Mean Platelet Volume 10.3 fL (9.1-12.4); NEUTROPHILS PERCENT AUTO 70 % (41-73); Platelet Count 148 K/mm3 (150-400); RDW Coefficient Variation 14.9 % (11.7-14.2); RDW Standard Deviation 53.1 fL (35.1-46.3); Red Blood Cell Count 3.73 M/mm3 (4.30-5.90); White Blood Cell Count 7.18 K/mm3 (4.00-11.30)
[2023-08-17 11:41] LABS: Albumin, Blood 3.3 g/dL (3.4-5.0); Albumin/Globulin Ratio 0.7 (0.8-1.8); Bilirubin, Total 0.5 mg/dL (0.1-1.0); Bun/Creatinine Ratio 20.3 (12.0-20.0); Calcium, Blood 9.2 mg/dL (8.5-10.1); Creatinine, Blood 1.48 mg/dL (0.60-1.20); Globulin, Blood 4.9 g/dL (2.2-4.0); Potassium, Blood 4.7 mmol/L (3.5-5.5); Total Protein, Blood 8.2 g/dL (6.4-8.2)
== END ==
LOC: LAB 11:26 → LAB SHORT 11:26
PROVIDERS: Physician Assistant
DX: R53.83 Other fatigue (principal)
CPT/HCPCS: 80053; 85025

== ENCOUNTER 2023-08-28 18:45 | Inpatient (IN) | payer OTHER ==
[~2023-08-28] VITALS: Ht 167.6 cm; Wt 109.8 kg
[~2023-08-28 18:45] MED LIST changes: +ALBU90OI INH; +Lactated Ringer's 1,000 ML IV SCH
[2023-08-28 19:39] LABS: BASOPHILS ABSOLUTE AUTO 0.03 K/mm3 (0.00-0.23); BASOPHILS PERCENT AUTO 0 % (0-2); EOSINOPHILS ABSOLUTE AUTO 0.02 K/mm3 (0.00-0.68); EOSINOPHILS PERCENT AUTO 0 % (0-6); Hematocrit 35.7 % (37.0-53.0); Hemoglobin 11.8 g/dL (13.5-17.5); IMMATURE GRAN ABSOLUTE AUTO 0.05 K/mm3 (0.00-0.10); IMMATURE GRAN PERCENT AUTO 0 % (0-1); LYMPHOCYTES ABSOLUTE AUTO 0.77 K/mm3 (0.84-5.20); LYMPHOCYTES PERCENT AUTO 7 % (21-46); MONOCYTES PERCENT AUTO 4 % (4-13); Mean Corpuscular HGB 31.5 pg (26.0-34.0); Mean Corpuscular HGB Conc 33.1 g/dL (31.5-36.5); Mean Corpuscular Volume 95 fL (80-100); Mean Platelet Volume 10.6 fL (9.1-12.4); NEUTROPHILS ABSOLUTE AUTO 10.22 K/mm3 (1.96-9.15); NEUTROPHILS PERCENT AUTO 89 % (41-73); Platelet Count 168 K/mm3 (150-400); RDW Coefficient Variation 14.8 % (11.7-14.2); RDW Standard Deviation 51.9 fL (35.1-46.3); Red Blood Cell Count 3.75 M/mm3 (4.30-5.90); White Blood Cell Count 11.49 K/mm3 (4.00-11.30)
[2023-08-28 19:58] LABS: Alanine Aminotransfer (ALT/SGP 41 U/L (12-78); Albumin, Blood 3.6 g/dL (3.4-5.0); Albumin/Globulin Ratio 0.8 (0.8-1.8); Alk Phos 128 U/L (50-136); Anion Gap 3 mmol/L (6-16); Aspartate Aminotrans (AST/SGOT 27 U/L (12-37); Bilirubin, Total 0.7 mg/dL (0.1-1.0); Blood Urea Nitrogen 38 mg/dL (8-24); Bun/Creatinine Ratio 29.7 (12.0-20.0); CO2, Blood 27 mmol/L (21-32); Calcium, Blood 9.3 mg/dL (8.5-10.1); Chloride, Blood 110 mmol/L (98-108); Creatinine, Blood 1.28 mg/dL (0.60-1.20); Globulin, Blood 4.4 g/dL (2.2-4.0); Glomerular Filtration Rate 58 (60-); Glucose, Blood 187 mg/dL (70-99); Potassium, Blood 4.5 mmol/L (3.5-5.5); Sodium, Blood 140 mmol/L (136-145)
[2023-08-28] MEDS ORDERED: NS 1,000 ML IV SCH (21:40)
[2023-08-28] MEDS ORDERED: Ondansetron HCl 2 MG / ML 2ML Vial IV ONE (21:40)
[2023-08-28] MEDS ORDERED: FentaNYL Citrate 50 MCG/ML 2 ML Injection IV PRN (23:20)
[2023-08-28] MEDS ORDERED: Acetaminophen 325 MG TABLET PO PRN (23:20)
[2023-08-28] MEDS ORDERED: Ondansetron HCl 2 MG / ML 2ML Vial IV PRN (23:25)
[2023-08-28] MEDS ORDERED: FLU VACC QS2023-24(6MOS UP)/PF 60 MCG/0.5 ML SYRINGE IM SCH (23:25)
[2023-08-28] MEDS ORDERED: Naloxone HCl 0.4MG / ML 1ML Vial IV PRN (23:25)
[2023-08-29] MEDS ORDERED: FentaNYL Citrate 50 MCG/ML 2 ML Injection IV PRN (00:35)
[2023-08-29] MEDS ORDERED: MetroNIDAZOLE 500MG/NS 100 ml 100 ML IV SCH (01:00)
[2023-08-29] MEDS ORDERED: CefTRIAXone Sodium 2,000 MG in NS 100 ML IV SCH (01:00)
--- NOTE | 2023-08-29 01:05 | NUR ---
NEW ADMIT. PATIENT ARRIVED TO ROOM 310 VIA GURNEY AND 1P ASSIST. PATIENT TRANSF[facility]ED FROM [facility] TO HOSPITAL BED VIA TRANSFER SHEET AND 3P ASSIST. PATIENT ARRIVED TO ROOM WITH NG IN PLACE; WAITING FOR X-RAY PLACEMENT CONFIRMATION, 1 PATIENTS BELONGINGS BAG, AND DENTURES. PATIENT ARRIVES ON 2L'S O2 SATTING AT 89% THIS RN INCREASED PATIENTS O2 TO A TOTAL 4.5L'S VIA NASAL CANNULA TO MAINTAIN O2 SATS >93%. PATIENT SITTING UP IN BED WITH EMESIS BAG IN HAND. THIS RN TO ASSUE CARE.
[2023-08-29 01:19] VITALS: BP 129/61
[2023-08-29] MEDS ORDERED: LACT PO (01:19)
[2023-08-29] MEDS ORDERED: GORMEL TEN228 G1 TOP (01:21)
[2023-08-29] MEDS ORDERED: HydrALAZINE HCl 20 MG / ML 1ML Vial IV PRN (01:30)
[2023-08-29 01:33] LABS: Source, Urine Voided
[2023-08-29 01:35] LABS: Bilirubin, Urine Neg (Neg); Blood, Urine Neg (Neg); Glucose Qualitative, Urine Neg (Neg); Ketones, Urine Neg (Neg); Leukocyte Esterase, Urine 2+ (Neg); Nitrite, Urine Neg (Neg); Protein, Urine 2+ (Neg); Specific Gravity, Urine 1.015 (1.003-1.022); Urobilinogen, Urine NORM (Normal)
[2023-08-29 02:13] LABS: Appearance, Urine Hazy (Clear); Color, Urine Yellow (P-Yellow)
[2023-08-29 02:15] LABS: Bacteria Mod /hpf; Red Blood Cells, Urine 0-2 /hpf (0-2); Squamous Epithelial Cells Mod /hpf (Few); Yeast/Fungi Urine Mod /hpf
[2023-08-29 02:49] VITALS: BP 129/64
--- NOTE | 2023-08-29 03:21 | NUR ---
X-RAY DONE BY RADIOLOGY TO CHECK NG PLACEMENT. CALLED HOSPITALIST REGARDING X-RAY; DR. NAJERA REVIEWED X-RAY AND INSTRUCTED THIS RN TO ADVANCE NG TUBE 5CM AND ORDERED FOR AN X-RAY TO CONFIRM PLACEMENT FOLLOWING ADVANCEMENT.
--- NOTE | 2023-08-29 03:52 | NUR ---
HOSPITALIST CONTACTED REGARDING FOLLOW-UP X-RAY, X-RAY SHOWED THAT NG TUBE WAS NOT IN THE CORRECT PLACE; ORDERED FOR THE PATIENTS IMAGING TO BE SENT TO NIGHT RADIOLOGIST IF AVALIABLE. IF NOT AVALIABLE TO ADVANCE NG TUBE 5cm IF PATIENT TOLERATES ADVANCEMENT, ADVANCE AN ADDITIONAL 5cm, FOR A TOTAL OF 10cm ADVANCEMENT.
--- NOTE | 2023-08-29 03:54 | NUR ---
RADIOLOGY CONTACTED AND THIS RN INQUIRED ABOUT GETTING NG PLACEMENT IMAGES SENT TO BE READ BY THE NIGHT TIME RADIOLOGIST; PER RADIOLOGY THIS IS NOT AVALIABLE. THIS RN PER ORDERS ADVANCED PATIENTS NG TUBE. THIS RN AND MOI AGUILAR RN ADVANCED NG TUBE FOR A TOTAL OF 10cm PATIENT TOLERATED 5cm ADVANCEMENT. ORDER FOR AN X-RAY TO RECHECK PLACEMENT OF NG TUBE ORDERED PER .
--- NOTE | 2023-08-29 04:52 | NUR ---
PATIENT HAD EPISODES OF EMESIS. RADIOLOGY UP FOR REPEAT X-RAY. NG TUBE COILED IN PATIENTS MOUTH. NG TUBE REMOVED. HOSPITALIST CONTACTED. PER HOSPITALIST WE ARE TO RETRY NG TUBE PLACEMENT AND GET AN X-RAY TO RECHECK PLACEMENT.
--- NOTE | 2023-08-29 05:10 | NUR ---
MOI AGUILAR RN PLACED NEW NG TUBE. ORDER PLACED PER TO HAVE X-RAY DONE TO RECHECK NG PLACEMENT. X-RAY COMPLETED. HOSPITALIST REVIEWED X-RAY IMAGING AND IT SHOWED NG TUBE NOT IN CORRECT PLACE. PER ADVANCE NG TUBE ONE MORE TIME 10cm, IF PLACEMENT IS NOT CORRECT ALTERNATIVE OPTIONS WILL BE DISCUSSED AT THAT TIME.
[2023-08-29] MEDS ORDERED: Pantoprazole Sodium 40 MG Injection IV SCH (06:00)
[2023-08-29 06:03] LABS: BASOPHILS ABSOLUTE AUTO 0.02 K/mm3 (0.00-0.23); BASOPHILS PERCENT AUTO 0 % (0-2); EOSINOPHILS PERCENT AUTO 0 % (0-6); Hemoglobin 12.5 g/dL (13.5-17.5); IMMATURE GRAN ABSOLUTE AUTO 0.06 K/mm3 (0.00-0.10); IMMATURE GRAN PERCENT AUTO 0 % (0-1); LYMPHOCYTES ABSOLUTE AUTO 0.53 K/mm3 (0.84-5.20); LYMPHOCYTES PERCENT AUTO 3 % (21-46); MONOCYTES ABSOLUTE AUTO 0.56 K/mm3 (0.16-1.47); MONOCYTES PERCENT AUTO 4 % (4-13); Mean Corpuscular HGB 31.6 pg (26.0-34.0); Mean Corpuscular HGB Conc 32.9 g/dL (31.5-36.5); Mean Corpuscular Volume 96 fL (80-100); Mean Platelet Volume 10.5 fL (9.1-12.4); NEUTROPHILS ABSOLUTE AUTO 14.59 K/mm3 (1.96-9.15); NEUTROPHILS PERCENT AUTO 93 % (41-73); Platelet Count 184 K/mm3 (150-400); RDW Coefficient Variation 14.8 % (11.7-14.2); RDW Standard Deviation 52.2 fL (35.1-46.3); Red Blood Cell Count 3.96 M/mm3 (4.30-5.90); White Blood Cell Count 15.76 K/mm3 (4.00-11.30)
[2023-08-29 06:10] LABS: International Normalized Ratio 1.05
[2023-08-29 06:28] LABS: Albumin, Blood 3.6 g/dL (3.4-5.0); Albumin/Globulin Ratio 0.8 (0.8-1.8); Bilirubin, Total 0.8 mg/dL (0.1-1.0); Bun/Creatinine Ratio 27.7 (12.0-20.0); Calcium, Blood 9.4 mg/dL (8.5-10.1); Creatinine, Blood 1.41 mg/dL (0.60-1.20); Globulin, Blood 4.3 g/dL (2.2-4.0); Magnesium, Blood 2.1 mg/dL (1.6-2.4); Percent Saturation 14.7 % (20.0-50.0); Potassium, Blood 4.3 mmol/L (3.5-5.5); Total Protein, Blood 7.9 g/dL (6.4-8.2)
[2023-08-29 07:28] VITALS: BP 121/52
--- NOTE | 2023-08-29 08:00 | NUR ---
SHIFT SUMMARY. PATIENT IS PLEASANT AND COOPERATIVE WITH CARE. PATIENT HAS HAD EMESIS THAT ARE BROWN IN COLOR. PATIENT NORMALLY ON RA AT BASELINE CURRENTLY REQUIRING 11L'S VIA MASK TO MAINTAIN O2 SATS >93%. PATIENT DESATTED FOLLOWING NG REMOVAL AND REPLACEMENT. RT INTO SEE PATIENT. PATIENT X-RAY COMPLETE OF NG RECHECK PLACEMENT-RESULTS NOT READ AT THIS TIME. PATIENT USED CPAP WITH 11L'S BLEED IN. PATIENT IS ABLE TO CALL AND CALLS APPROPRIATELY. PATIENT IS CONTINENT/INCONTINENT, WILL CALL TO USE URINAL AT TIMES. PATIENTS LUNGS ARE DIMINISHED T/O AND MOIST IN BASES. PATIENT DENIES CHEST PAIN/PRESSURE/TIGHTNESS. BED IS LOCKED IN THE LOWEST POSITION WITH CALL LIGHT IN REACH. REPORT GIVEN TO DAYSMOFT NURSE.
--- NOTE | 2023-08-29 08:20 | NUR ---
CALLED DR RICK- PT ADMITTED LAST NIGHT. PER THE NIGHT RN REPORT THE PT WAS PLACED ON C-PAP LAST NIGHT. NG TUBE WAS PLACED IN THE ED, CHEST XR TO VERIFY PLACEMENT WAS DONE AFTER PT ARRIVED ON MED FLOOR. PT WAS DESATING AND USES CPAP AT HOME. CPAP WAS SET UP BY RT WITH O2 BLEED IN. PER REPORT THE NG TUBE WAS NOT IN THE CORRECT PLACE ANND SHE WAS ADVISED BY IMAGING TO ADVANCE AND SHE DID, SHE EVALUATED THE PT MOUTH AND NOTED NO COILING AT THAT TIME. IMAGING ORDERED AGAIN. THE PT HAS HAD EMESIS T/O THE NIGHT. PLACEMENT INMAGE DONE AGAIN AND NG TUBE WAS NOT VISIBLE. RN EVALUATED AND FOUND THE TUBE WAS NOW COILED IN THE PT MOUTH. NG TUBE DC'D AANND AA NEW NG TUBE WAS PLACED; IMAGING ORDERED TO VERIFY PLACEMENT. NO IMAGING IS AVAILABLE FOR REVIEW AT THIS TIME. BEDSIDE REPORT COMPLETED WITH NIGHT RN. PT APPEARS TO BE IN NO DISTRESS ON CPAP WITH 11L BLEED IN SATS 92-96%. CALLED RT TO VERIFY THE PT HAD RESPIRATORY ISSUES AFTER INITIAL NG TUBE PLACEMENT. SPOKE TO THE PT O2 REQUIREMENTS WELL NO ABILITY TO VERIFY TUBE, LUNG SOUNDS ARE WHEEZY AND COARSE AND DIM IN THE BASES. PT SEEMS MORE SUITED FOR PCU WITH ALL OF THIS GOING ON, FOR CLOSER OBSERVATION. RECIEVED ORDER TO STOP CPAP AND PLACE PT ON O2. SATS ON ROOM AIR DROPPED SLOWLY TO 88% PRIOR TO PLACING THE PT ON 3L O2 VIA OXY MASK. AWARE. [facility] TO [facility] THE PLACEMENT OF NG TUBE. PT STILL HAS NO SIGNS OF DISTRESS AT THIS TIME. ON CONT BIOX.
[2023-08-29] MEDS ORDERED: AmLODIPine Besylate 5 MG Tab PO SCH (09:00)
[2023-08-29] MEDS ORDERED: Docusate Sodium 100 MG Cap PO SCH (09:00)
[2023-08-29] MEDS ORDERED: Lisinopril 20 MG Tab PO SCH (09:00)
--- NOTE | 2023-08-29 09:45 | NUR ---
RECIEVED A CALL FROM IMAGING- PER RADIOLOGY NG TUBE NEEDS TO ADVANCE 15CM. THIS PHOTOVOLTAIC FABRICATION TECHNICIAN NG TUBE 15CM PER RADIOLOGY WITH THE ASSISTANCE OF AIR CHIPPER ANITA. DR LOPEZ PRESENT FOR THE PROCEDURE WELL. PT WAS ABLE TO SWALLOW ADEQUATELY, THERE WERE NO SIGNS OF ADDITIONAL RESPIRATORY DISTRESS. PT STILL ON 3L VIA OXY MASK TO MAINTAIN SATS. PT ABLE TO TALK TO STAFF AFTER TUBE ADVANCEMENT AND ENDORSES NO INCREASED PAIN. PLACED A STATCHEST XR FOR TUBE PLACEMENT VERIFICATION. PT IN BED. HOB ELEVATED DAUGHTER AT THE BEDSIDE NO CURRENT S&S OF DISTRESS, AIR CHIPPER HANGING AABX AT THIS TIME.
--- NOTE | 2023-08-29 11:00 | NUR ---
NG tube placement verified- connected to suction- Per radiology the pt ng shows good placement. Connected to low intermittent suction per md order. Brown liquid noted in suction canister at this time.
[2023-08-29 15:31] VITALS: BP 121/51
[2023-08-29] MEDS ORDERED: Ampicillin Sod/Sulbactam Sod 3 GM in NS 100 ML IV SCH (16:00)
--- NOTE | 2023-08-29 18:47 | NUR ---
SHIFT SUMMARY- PT HAD A CHEST XR TO EVALUATE FOR TUBE PLACEMENT AND IT SHOWS A POSSIBLE PNEUMONIA, POSSIBLE ASPIRATION. CALLED DR THIS EVENING AND SPOKE TO HIM ABOUT THE RESULT AND HE CHANGED THE PT ABX. PT HAD A SMALL BOWEL FOLLOW THROUGH. PER THE IMAGING THE PT SHOULD CONTINUE TO BE NPO AND NOT BE CONNECTED TO SUCTION UNTIL THE FINAL IMAGE TOMORROW MORNING. PT STATED HE FARTED THIS EVENING AFTER BEING TRANSFERED FROM THE IMAGING GURNEY TO THE BED. PT IN BED, OXY MASK IN PLACE ON 3L, O2 SATS 90-94%, CALL LIGHT IN REACH NO S&S OF DISTRESS NOTED.
[2023-08-29 19:41] VITALS: BP 141/71
--- NOTE | 2023-08-29 19:48 | NUR ---
CALLED DR PONCE- PT HAD IMAGING AT 1700 NEXT IMAGE IS FOR 0800. AT THE TIME OF BEDSIDE REEPORT THE PT VOMITED. CALLED DR YOUSSEF AND RECIEVED ORDER TO CONNECT THE PT BACK TO LOW INTERMITTENT SUCTION AND STILL GET THE IMAGING TOMORROW AM. CALLED IMAGING THEY ARE AWARE OF THE DR PLAN TO PROCEED WITH THE IMAGING.
--- NOTE | 2023-08-29 20:11 | NUR ---
PT CONNECTED TO LOW INTERMITTENT- SUCTION PER DR YOUSSEF, PT STATES HE IS FEELING MUCH BETTER NOW, HE HAS HAD NEARLY 500ML OUT IN THE FIRST 10 MINUTES. NIGHT RN IS AWARE.
[2023-08-30 02:23] VITALS: BP 139/54
[2023-08-30 04:58] LABS: BASOPHILS ABSOLUTE AUTO 0.03 K/mm3 (0.00-0.23); BASOPHILS PERCENT AUTO 0 % (0-2); EOSINOPHILS PERCENT AUTO 0 % (0-6); Hematocrit 33.8 % (37.0-53.0); Hemoglobin 11.1 g/dL (13.5-17.5); IMMATURE GRAN ABSOLUTE AUTO 0.06 K/mm3 (0.00-0.10); IMMATURE GRAN PERCENT AUTO 0 % (0-1); LYMPHOCYTES ABSOLUTE AUTO 1.01 K/mm3 (0.84-5.20); LYMPHOCYTES PERCENT AUTO 7 % (21-46); MONOCYTES ABSOLUTE AUTO 0.58 K/mm3 (0.16-1.47); MONOCYTES PERCENT AUTO 4 % (4-13); Mean Corpuscular HGB 31.6 pg (26.0-34.0); Mean Corpuscular HGB Conc 32.8 g/dL (31.5-36.5); Mean Corpuscular Volume 96 fL (80-100); Mean Platelet Volume 10.4 fL (9.1-12.4); NEUTROPHILS ABSOLUTE AUTO 12.86 K/mm3 (1.96-9.15); NEUTROPHILS PERCENT AUTO 89 % (41-73); Platelet Count 165 K/mm3 (150-400); RDW Coefficient Variation 15.5 % (11.7-14.2); RDW Standard Deviation 54.8 fL (35.1-46.3); Red Blood Cell Count 3.51 M/mm3 (4.30-5.90); White Blood Cell Count 14.54 K/mm3 (4.00-11.30)
[2023-08-30] MEDS ORDERED: NS 100 ML IV ONE (05:08)
[2023-08-30 05:24] LABS: Albumin, Blood 3.2 g/dL (3.4-5.0); Albumin/Globulin Ratio 0.8 (0.8-1.8); Bilirubin, Total 0.7 mg/dL (0.1-1.0); Bun/Creatinine Ratio 31.6 (12.0-20.0); Calcium, Blood 9.1 mg/dL (8.5-10.1); Creatinine, Blood 1.96 mg/dL (0.60-1.20); Globulin, Blood 4.2 g/dL (2.2-4.0); Potassium, Blood 4.1 mmol/L (3.5-5.5); Total Protein, Blood 7.4 g/dL (6.4-8.2)
--- NOTE | 2023-08-30 06:45 | NUR ---
SHIFT SUMMARY. PATIENT HAD BM THIS SHIFT, BM IS DARK IS COLOR. PATIENT PUT OUT 2175MLS FROM NG TUBE T/O SHIFT. PATIENT HAD EMESIS BEGINNING OF SHIFT AND WAS RECONNECTED TO SUCTION BY DAYSHIFT NURSE FOLLOWING DOCTOR ORDER. PATIENT INCONTINENT T/O NIGHT. PATIENTS BED IS LOCKED IN THE LOWEST POSITION WITH CALL LIGHT IN REACH. PATIENT HOB IS ELEVATED. PATIENT REPOSITIONED NEEDED T/O SHIFT. CREAM AND POWDER APPLIED TO GROIN. CREAM APPLIED TO BUTTOCKS. NO S/S OF DISTRESS NOTED AT THIS TIME. CARE IS ONGOING.
[2023-08-30 07:19] VITALS: BP 141/61
--- NOTE | 2023-08-30 15:00 | NUR ---
DR YOUSSEF TO SEE THE PT- DR YOUSSEF CAME TO SEE THE PT AND TOLD HIM THE RESULT OF THE TEST SHOWED THE CONTRAST LOW IN THE PT BOWELS. PT HAD A STOOL LAST NIGHT. MD AWARE. DR YOUSSEF SPOKE TO THE PT ABOUT THE NG TUBE, AND TOLD HIM WE SHOULD LEAVE IT IN CONNECTED TO SUCTION FOR ANOTHER DAY OR TWO.
--- NOTE | 2023-08-30 15:39 | NUR ---
CALLED DR SCHWARTZ- PER DR YOUSSEF THE PT WILL HAVE THE NG TUBE CONNECTED TO SUCTION FOR ANOTHER DAY OR TWO. LR JUST COMPLETED AND THE PT NO LONGER HAS IVF ORDERED. SPOKE TO DR RICK AND RECIEVED ORDER FOR LR AT 75ML/HR. D/T NG TUBE PT HAS NOT RECIEVED LISINOPRIL OR AMLODIPINE AWARE, SBP HAS BEEN IN THE 140'S. PER DR SCHWARTZ OK TO CONTINUE TO HOLD UNTIL PT IS ABLE TO HAVE PO INTAKE. DOCUSATE DC'D, PER , IT CAN NOT BE GIVEN AT THIS TIME.
[2023-08-30] MEDS ORDERED: Lactated Ringer's 1,000 ML IV SCH (15:40)
[2023-08-30 15:52] VITALS: BP 148/64
--- NOTE | 2023-08-30 19:48 | NUR ---
PLACED A CALL TO DR SCHWARTZ- PT IS RUNNING A FEVER 100.4 CALLED AND RECIEVED ORDER FOR TYLENOL 650MG VT.
[2023-08-30] MEDS ORDERED: Acetaminophen 650 MG Supp PR PRN (19:55)
--- NOTE | 2023-08-30 20:04 | NUR ---
SHIFT SUMMARY- PT ALERT AD ORENTED TO SELF AND FAMILY. E HS AN NG TUBE CONECTED TO LOW INTERMITTENT SUCTION. PT IS A 2P MAX ASSIST FOR ROL AND CHANGE, INCONTINENT OF BOWEL AND BLADDER. PT WOULD GET A FULL BED CHANGE AND CALL 5 MINUTES LTER TO SAY HE WAS WET AGAIN. STAFF ATTEMPTED A LINER FOR EASIER CHANGES, MALE WRAP WAS ATTEMPTED, THAT ALSO FAILED TO SAVE THE BED LINNENS, CONDOM CATHS HAVE FALLEN OFF. POST VOID BLADDER SCAN THIS EVENING SHOWED 100ML. NEW CONDOM CATH WAS PLACED THIS EVENING PRIOR TO SHIFT CHANGE, A PINK FOAM WAS PLACED ON THE PT BED HE C/O PAIN IN HIS BUT (SMALL PRESSURE SORE THERE BUT BLANCHABLE). PT HIPS FLOATED ON PILLOWS. LAST TEMP WAS 100.[address] GLEZ FOR ME TYLENOL AND PLACED ORDER THROUGH ORDER MANAGEMENT. CONDOM CATH IS IN PLACE AND APEARS TO BE IN PLACE, PT HAS NOT VOIDED YET IT IS FRESHLY PLACED. BEDSIDE REPORT COMPLETED WITH NIGHT RN. PT IN BED, OXY MASK IN PLACE WITH 3L O2 O2 SATS 93% OR GREATER. NO S&S OF DISTRESS NOTED AT THE TIME OF BEDSIDE REPORT.
[2023-08-30 20:28] VITALS: BP 161/72
[2023-08-31] MEDS ORDERED: NS 250 ML IV PRN (00:40)
[2023-08-31 03:54] VITALS: BP 161/68
[2023-08-31 04:43] LABS: BASOPHILS ABSOLUTE AUTO 0.03 K/mm3 (0.00-0.23); BASOPHILS PERCENT AUTO 0 % (0-2); EOSINOPHILS PERCENT AUTO 0 % (0-6); Hematocrit 33.7 % (37.0-53.0); Hemoglobin 10.9 g/dL (13.5-17.5); IMMATURE GRAN ABSOLUTE AUTO 0.08 K/mm3 (0.00-0.10); IMMATURE GRAN PERCENT AUTO 1 % (0-1); LYMPHOCYTES ABSOLUTE AUTO 0.92 K/mm3 (0.84-5.20); LYMPHOCYTES PERCENT AUTO 8 % (21-46); MONOCYTES ABSOLUTE AUTO 0.49 K/mm3 (0.16-1.47); MONOCYTES PERCENT AUTO 4 % (4-13); Mean Corpuscular HGB 31.6 pg (26.0-34.0); Mean Corpuscular HGB Conc 32.3 g/dL (31.5-36.5); Mean Corpuscular Volume 98 fL (80-100); Mean Platelet Volume 10.5 fL (9.1-12.4); NEUTROPHILS ABSOLUTE AUTO 10.36 K/mm3 (1.96-9.15); NEUTROPHILS PERCENT AUTO 87 % (41-73); Platelet Count 171 K/mm3 (150-400); RDW Coefficient Variation 15.4 % (11.7-14.2); RDW Standard Deviation 55.2 fL (35.1-46.3); Red Blood Cell Count 3.45 M/mm3 (4.30-5.90); White Blood Cell Count 11.88 K/mm3 (4.00-11.30)
--- NOTE | 2023-08-31 04:54 | NUR ---
Shift Summary Patient NG remained patent & draining all shift, dark green, thin gastric juices. Did not have any vomiting.O2 via oxy mask @3L. Oral care x 2 with mouth moisturzer and lip balm. Patient alert & oriented all shift. IV sites x 2 patent and infusing. Was incontinent x 1 of large dark sticky BM. Did have low grade temp of 100.7. Tylenol suppository was ordered and given, D/T being NPO. At 0400 temp remained 100.7. SCDS to BLE, pink foam mattress placed prior to this shift.
[2023-08-31 05:43] LABS: Albumin, Blood 2.9 g/dL (3.4-5.0); Albumin/Globulin Ratio 0.7 (0.8-1.8); Bilirubin, Total 0.8 mg/dL (0.1-1.0); Bun/Creatinine Ratio 32.5 (12.0-20.0); Calcium, Blood 9.1 mg/dL (8.5-10.1); Creatinine, Blood 1.26 mg/dL (0.60-1.20); Globulin, Blood 4.3 g/dL (2.2-4.0); Potassium, Blood 3.9 mmol/L (3.5-5.5); Total Protein, Blood 7.2 g/dL (6.4-8.2)
[2023-08-31 07:29] VITALS: BP 164/62
[2023-08-31] MEDS ORDERED: Dextrose 5% 1,000 ML IV SCH (08:35)
[2023-08-31 17:30] VITALS: BP 178/70
[2023-08-31 19:23] VITALS: BP 178/62
--- NOTE | 2023-08-31 19:28 | NUR ---
SHIFT SUMMARY: NGT "CLAMPED" AT ~1300 TODAY (REMOVED FROM SUCTION), STARTED ON CLEARS. TOLERATED WELL SO FAR, NO C/O NAUSEA, NO EMESIS. HAD A COUPLE OF LARGE LOOSE BM'S, IS ALSO INCONTINENT OF BLADDER, TRIED USING CONDOM CATH. OXYGEN TITRATED DOWN TO 2 L/MIN VIA OXY MASK WITH SATS 91-94%. WHEN HE REMOVES THE MASK, SATS DROP TO MID 80'S. HAS TROUBLE FOLLOWING DIRECTIONS. MILDLY FEBRILE ALL SHIFT. SCD'S ON. GAVE TELEPHONE UPDATE TO HIS .
--- NOTE | 2023-09-01 02:09 | NUR ---
SHIFT SUMMARY NO ACUTE CHANGES THIS SHIFT. PT HAD AT LEAST TWO INCONTINENT BM'S THIS SHIFT. HE IS ALSO URINATING APPROX Q 15 AND CONSTANTLY ASKING TO BE CHANGED. CONDOM CATH WAS PLACED BUT ONLY STAYED ON FOR A FEW HOURS. PT USES CALL LIGHT INAPPROPRIATELY AND IS CONSTANTLY CALLING TO GET SOMEONE IN THE ROOM DESPITE HAVING THE PROPER USE OF THE CALL LIGHT EXPLAINED TO HIM SEVERAL TIMES. HE HAS BEEN RESTLESS THROUGHOUT THE NIGHT.
[2023-09-01 02:44] VITALS: BP 169/65
[2023-09-01 04:44] LABS: BASOPHILS ABSOLUTE AUTO 0.03 K/mm3 (0.00-0.23); BASOPHILS PERCENT AUTO 0 % (0-2); EOSINOPHILS ABSOLUTE AUTO 0.01 K/mm3 (0.00-0.68); EOSINOPHILS PERCENT AUTO 0 % (0-6); Hematocrit 32.6 % (37.0-53.0); Hemoglobin 10.6 g/dL (13.5-17.5); IMMATURE GRAN ABSOLUTE AUTO 0.04 K/mm3 (0.00-0.10); IMMATURE GRAN PERCENT AUTO 0 % (0-1); LYMPHOCYTES ABSOLUTE AUTO 1.22 K/mm3 (0.84-5.20); LYMPHOCYTES PERCENT AUTO 12 % (21-46); MONOCYTES PERCENT AUTO 6 % (4-13); Mean Corpuscular HGB 31.5 pg (26.0-34.0); Mean Corpuscular HGB Conc 32.5 g/dL (31.5-36.5); Mean Corpuscular Volume 97 fL (80-100); Mean Platelet Volume 10.6 fL (9.1-12.4); NEUTROPHILS ABSOLUTE AUTO 8.48 K/mm3 (1.96-9.15); NEUTROPHILS PERCENT AUTO 82 % (41-73); Platelet Count 184 K/mm3 (150-400); RDW Coefficient Variation 15.1 % (11.7-14.2); RDW Standard Deviation 53.9 fL (35.1-46.3); Red Blood Cell Count 3.37 M/mm3 (4.30-5.90); White Blood Cell Count 10.38 K/mm3 (4.00-11.30)
[2023-09-01 05:02] LABS: Bun/Creatinine Ratio 26.4 (12.0-20.0); Calcium, Blood 8.8 mg/dL (8.5-10.1); Creatinine, Blood 1.25 mg/dL (0.60-1.20); Potassium, Blood 3.7 mmol/L (3.5-5.5)
[2023-09-01 07:46] VITALS: BP 159/62
--- NOTE | 2023-09-01 08:33 | NUR ---
MD CALL MR MORALES C/O DIFFICULTY BREATHING. LUNGS SOUND DIMINISHED. ON CONTINUOUS PULSE OX AT 95% RESP RATE 27-30. BRISEIDA RESP THERAPIST CAME AND ASSESSED HIM. DR LIVINGSTON NOTIFIED AND HE ASKED ME TO CALL DR PONCE TO SEE IF NGT CAN BE PULLED. DR PONCE GAVE TELEPHONE ORDER TO PULL NGT WHICH WAS DONE AND BRISEIDA APPLIED CPAP TO PT WITH 2L. WILL CTA.
[2023-09-01] MEDS ORDERED: Venlafaxine HCl 75 MG CapCR PO SCH (09:00)
[2023-09-01] MEDS ORDERED: Atorvastatin 10 MG Tab PO SCH (09:00)
[2023-09-01] MEDS ORDERED: Dextrose 5% 1,000 ML IV SCH (09:50)
[2023-09-01] MEDS ORDERED: Piperacillin/Tazobactam Sod 4.5 GM in NS 100 ML IV SCH (12:00)
[2023-09-01 15:37] VITALS: BP 149/65
--- NOTE | 2023-09-01 15:46 | NUR ---
SHIFT SUMMARY MR NUR IS ABLE TO ANSWER ORIENTATION QUESTIONS, BUT HAS SOME CONFUSION AND DELAY TO HIS SPEACH IN CONVERSATION. SINCE THE EPISODE OF FEELING LIKE HE WAS HAVING DIFFICULTY BREATHING THIS MORNING HE HAS HAD NO FURTHER COMPLAINTS OF ANY RESPIRATORY DIFFICULTIES. HE IS ON CONTINUOUS PULSE OX AND IT HAS BEEN IN THE MID 90S ON 2L NC. NGT REMOVED EARLY THIS SHIFT. TOLERATING CLEAR LIQUID DIET AND HE HAS DRANK A LOT OF WATER. IVF WERE INCREASED TO 100CC/HR. HE HAS HAD ONE DARK GREEN COLORED UNFORMED STOOL. CONDOM CATHETER ON, INCONTINENT OF URINE WHEN CATHETER IS NOT ON. TURNED AND REPOSITIONED Q2HRS, REDNESS TO BUTTOCKS WITH MEPILEX IN PLACE. BED LOW, CALL LIGHT IN REACH, BED ALARM ON.
[2023-09-01 19:49] VITALS: BP 183/71
[2023-09-02 02:05] VITALS: BP 163/63
[2023-09-02] MEDS ORDERED: Trospium Chloride 20 MG Tab PO SCH (06:00)
[2023-09-02 06:54] LABS: BASOPHILS ABSOLUTE AUTO 0.03 K/mm3 (0.00-0.23); BASOPHILS PERCENT AUTO 0 % (0-2); EOSINOPHILS ABSOLUTE AUTO 0.25 K/mm3 (0.00-0.68); EOSINOPHILS PERCENT AUTO 3 % (0-6); Hematocrit 32.4 % (37.0-53.0); Hemoglobin 10.6 g/dL (13.5-17.5); IMMATURE GRAN ABSOLUTE AUTO 0.04 K/mm3 (0.00-0.10); IMMATURE GRAN PERCENT AUTO 1 % (0-1); LYMPHOCYTES ABSOLUTE AUTO 0.79 K/mm3 (0.84-5.20); LYMPHOCYTES PERCENT AUTO 11 % (21-46); MONOCYTES ABSOLUTE AUTO 0.62 K/mm3 (0.16-1.47); MONOCYTES PERCENT AUTO 8 % (4-13); Mean Corpuscular HGB 31.2 pg (26.0-34.0); Mean Corpuscular HGB Conc 32.7 g/dL (31.5-36.5); Mean Corpuscular Volume 95 fL (80-100); Mean Platelet Volume 10.1 fL (9.1-12.4); NEUTROPHILS ABSOLUTE AUTO 5.82 K/mm3 (1.96-9.15); NEUTROPHILS PERCENT AUTO 77 % (41-73); Platelet Count 170 K/mm3 (150-400); RDW Coefficient Variation 14.9 % (11.7-14.2); RDW Standard Deviation 52.4 fL (35.1-46.3); White Blood Cell Count 7.55 K/mm3 (4.00-11.30)
[2023-09-02 07:12] LABS: Albumin, Blood 2.6 g/dL (3.4-5.0); Albumin/Globulin Ratio 0.6 (0.8-1.8); Bilirubin, Total 1.2 mg/dL (0.1-1.0); Bun/Creatinine Ratio 17.3 (12.0-20.0); Calcium, Blood 8.3 mg/dL (8.5-10.1); Creatinine, Blood 1.27 mg/dL (0.60-1.20); Globulin, Blood 4.2 g/dL (2.2-4.0); Potassium, Blood 3.4 mmol/L (3.5-5.5); Total Protein, Blood 6.8 g/dL (6.4-8.2)
[2023-09-02 07:52] VITALS: BP 148/63
--- NOTE | 2023-09-02 08:04 | NUR ---
SHIFT SUMMARY ROLF IS A&OX4, SLOW TO ANSWER AND MUMBLES. VSS ON 1.5L NC, CPAP WHILE ASLEEP. T-MAX 100.8. DENIES PAIN. TOLERATING A CLEAR LIQUID DIET, MILD NAUSEA, NO VOMITING. CONDOM CATHETER DRAINING ADEQUATE AMOUNTS OF CLEAR YELLOW URINE. X1 LOOSE, DARK GREENISH BROWN BM THIS SHIFT. INCONTINENT OF BOWEL, BRIEF IN PLACE. REPOSITIONED TOLERATED. EGG CRATE MATTRESS OVERLAY INPLACE. BED IN LOWEST POSITION, CALL LIGHT WITHIN REACH. BED ALARM SET FOR PT'S SAFETY. PT OFTEN FORGETS HOW TO PROPERLY USE HIS CALL LIGHT, AND JUST HOLLERS OUT.
[2023-09-02] MEDS ORDERED: Doxazosin Mesylate 2 MG Tab PO SCH (09:00)
[2023-09-02 15:57] VITALS: BP 120/54
--- NOTE | 2023-09-02 16:45 | NUR ---
SHIFT SUMMARY PT SLEEPING A LOT OF THE SHIFT. WAKING ONLY WHEN ACTIVITY IS ONGOING IN THE ROOM. PT SATING AT 90% ON RA. 2L IN PLACE AND SATING IN THE MID 90S. PHYSICAL THERAPY IN TO SEE THE PATIENT TODAY. PT STOOD WITH 2P ASSIST TWICE, BUT UNABLE TO TAKE STEPS. SNF RECOMMENDATION PER THERAPY NOTE. DR. PONCE IN TO FOLLOWUP WITH THE PATIENT. PATIENT PASSING GAS AND CONTINUES TO HAVE LIQUID STOOLS. ST EVALUATED PATIENT. NO NEW DIET CHANGES. PLAN FOR BARRIUM SWALLOW TOMORROW. PT NAUSEATED OCCATOINALLY THIS AM AND WITH MOVEMENT DURING THERAPY. PT UPDATED ON PLAN OF CARE TODAY. NO OTHER ACUTE CHANGES IN ASSESSMENT AT THIS TIME. VS REVIEWED. CALL LIGHT IN REACH. DENIES OTHER NEEDS AT THIS TIME.
[2023-09-02] MEDS ORDERED: Potassium Chloride 20 MEQ/15 ML UDC PO ONE (19:00)
[2023-09-02 19:57] VITALS: BP 110/55
[2023-09-03 05:07] VITALS: BP 117/54
[2023-09-03 05:28] LABS: BASOPHILS ABSOLUTE AUTO 0.03 K/mm3 (0.00-0.23); BASOPHILS PERCENT AUTO 1 % (0-2); EOSINOPHILS ABSOLUTE AUTO 0.39 K/mm3 (0.00-0.68); EOSINOPHILS PERCENT AUTO 7 % (0-6); Hematocrit 29.2 % (37.0-53.0); Hemoglobin 9.7 g/dL (13.5-17.5); IMMATURE GRAN ABSOLUTE AUTO 0.04 K/mm3 (0.00-0.10); IMMATURE GRAN PERCENT AUTO 1 % (0-1); LYMPHOCYTES PERCENT AUTO 12 % (21-46); MONOCYTES ABSOLUTE AUTO 0.49 K/mm3 (0.16-1.47); MONOCYTES PERCENT AUTO 9 % (4-13); Mean Corpuscular HGB 31.2 pg (26.0-34.0); Mean Corpuscular HGB Conc 33.2 g/dL (31.5-36.5); Mean Corpuscular Volume 94 fL (80-100); Mean Platelet Volume 10.6 fL (9.1-12.4); NEUTROPHILS PERCENT AUTO 71 % (41-73); Platelet Count 153 K/mm3 (150-400); RDW Coefficient Variation 14.6 % (11.7-14.2); RDW Standard Deviation 50.1 fL (35.1-46.3); Red Blood Cell Count 3.11 M/mm3 (4.30-5.90); White Blood Cell Count 5.75 K/mm3 (4.00-11.30)
[2023-09-03 06:00] LABS: Magnesium, Blood 2.1 mg/dL (1.6-2.4)
[2023-09-03 06:01] LABS: Albumin, Blood 2.3 g/dL (3.4-5.0); Anion Gap 4 mmol/L (6-16); Blood Urea Nitrogen 18 mg/dL (8-24); Bun/Creatinine Ratio 14.6 (12.0-20.0); CO2, Blood 27 mmol/L (21-32); Chloride, Blood 108 mmol/L (98-108); Creatinine, Blood 1.23 mg/dL (0.60-1.20); Glomerular Filtration Rate 60 (60-); Glucose, Blood 156 mg/dL (70-99); Phosphorus, Blood 3.4 mg/dL (2.5-4.9); Potassium, Blood 3.5 mmol/L (3.5-5.5); Sodium, Blood 139 mmol/L (136-145)
[2023-09-03 07:44] VITALS: BP 111/52
--- NOTE | 2023-09-03 07:52 | NUR ---
SHIFT SUMMARY PT IS A&OX4, SLOW TO ANSWER. VSS ON 2L NC. DENIES PAIN. NO ACUTE CHANGES THIS SHIFT. SLEPT T/O NOC. TOLERATING A CLEAR LIQUID DIET. NO C/O N/V. CONDOM CATH DRAINING LARGE AMOUNT OF CLEAR, YELLOW URINE. LOOSE BM X2, INCONTINENT, DARK GREEN. ROLF IS A X2 MAX ASSIST FOR EVERYTHING. NOOB THIS SHIFT. REPOSITIONED TOLERATED. BED IN LOWEST POSITION, CALL LIGHT WITHIN REACH. BED ALARM SET FOR PT'S SAFETY.
[2023-09-03] MEDS ORDERED: Potassium Chloride 20 MEQ/15 ML UDC PO ONE (08:00)
[2023-09-03] MEDS ORDERED: NIFEdipine 90 MG TabCR PO SCH (09:00)
[2023-09-03 15:29] VITALS: BP 124/63
--- NOTE | 2023-09-03 17:04 | NUR ---
PALLATIVE CARE- SPOKE WITH ST AND BEDSIDE RN ABOUT ROLF. HE JUST RECIEVED NEWS THAT HIS SWALLOW EVALUATION SHOWED ASPIRATION AND HE WAS MADE NPO. I DISCUSSED HIS GOALS OF CARE. I ASKED IF HE WOULD WANT A TUBE FOR FEEDING AND HE DID NOT. HE REPORTED THAT HE WANTED TO GO HOME. I CALLED AND SPOKE WITH HIS PATRICK ON THE PHONE, WITH HIS PERMISSION. I UPDATED HER ON THE RESULTS OF THE SWALLOW STUDY. SHE REPORTED THAT HE HAD A FEEDING TUBE BEFORE AND THAT THEY WOULD NOT WANT TO GO THAT ROUTE AGAIN. I DISCUSSED THE RISK OF REPEATED RISK OF PNUMONIA IF HE CONTINUES WITH ORAL INTAKE. SHE EXPRESSED THAT ROLF HAD PNUMONIA THREE TIMES LAST YEAR AND RECURRENT UTI'S SHE STATED THAT SHE WISHED THEY COULD HAVE ANTIBIOTICS AT HOME TO TREAT THIS IT ARROSE. WE DISCUSSED THE POSIBILITY OF HOSPICE TO AVOID HOSPITAL READMISSIONS. THEY ARE OPEN TO IT AND WILL DISCUSS THIS WITH FAMILY. I UPDATED DR. REBOLLEDO. HE FELT HOSPICE WOULD BE APPROPRIATE FOR ROLF AND WILL FOLLOW UP TOMORROW WITH FAMILY.
[2023-09-03] MEDS ORDERED: D5W-1/2NS 1,000 ML IV SCH (17:25)
--- NOTE | 2023-09-03 18:14 | NUR ---
SHIFT SUMMARY BARRIUM SWALLOW COMPLETED TODAY. ST CHANGED DIET TO NPO. PALLIATIVE CARE ORDERED AND WORKING WITH PATIENT/FAMILY ON PLAN OF CARE. PT CURRENTLY NPO. ORAL CARE COMPLETED THIS AFTERNOON. DENTURES REMOVED & CLEANED. POSSIBLE DC ON HOSPICE AFTER DR. REBOLLEDO TALKS MORE WITH FAMILY AND PATIENT TOMORROW. D51/2NS TO BE STARTED THIS EVENING AFTER ABX. LARGE DARK GREEN LIQUID STOOL THIS AM. DR. YOUSSEF IN TO SEE THE PATIENT AND PLEASED WITH SBO PROGRESS. NO OTHER ACUTE CHANGES IN ASSESSMENT AT THIS TIME. VS REVIEWED. CALL LIGHT IN REACH. RESTING IN BED, BREATHING EVEN & UNLOABORED WITH EYES CLOSED.
[2023-09-03 19:50] VITALS: BP 141/62
[2023-09-03] MEDS ORDERED: Ketorolac Tromethamine 15mg Vial IV PRN (20:40)
[2023-09-04 02:38] VITALS: BP 124/68
[2023-09-04 07:33] VITALS: BP 124/47
--- NOTE | 2023-09-04 08:33 | NUR ---
SHIFT SUMMARY PT IS A&OX4, SLOW TO ANSWER. VSS ON 2L NC. DENIES PAIN. NO EVENTS OR ACUTE CHANGES THIS SHIFT. NPO, ORAL CARE DONE FREQUENTLY. CONDOM CATH DRAINING ADEQUATE AMOUNTS OF YELLOW URINE. NO BM THIS SHIFT. NOOB THIS SHIFT, REPOSITIONED TOLERATED. BED IN LOWEST POSITION, CALL LIGHT WITHIN REACH. BED ALARM SET FOR PT'S SAFETY. ROLF WAS AWAKE FREQUENTLT T/O NOC.
[2023-09-04] MEDS ORDERED: NIFEdipine 60 MG TabCR PO SCH (09:00)
--- NOTE | 2023-09-04 12:13 | NUR ---
Goals of Care Theraputic listening provided to , Yvonne. She is having a great deal of anticipatory grief. Butch review of what home hospice will look like (ie. equipment, RN/BPM SOLUTION ARCHITECT and IRRIGATION SYSTEM OPERATOR). Yvonne stated she needs to move some furniture around in the living room to accomadate a hospital bed. She is not able to take him home today. Yvonne reports her daughter works as a bath aid at [employer] and would like [facility] if possible. Dr. Clark and CM updated with 's request.
--- NOTE | 2023-09-04 13:45 | NUR ---
POLST form updated to DNR/RUBBER GOODS FINISHER per pt's request. Spoke with pt's by phone whom confirmed pt's code status wishes. Pt wants to go to his home for hospice. He declines LTC. CM notified of pt's wishes. Phone call rcd from Primary RN, condom cath is leaking. This PC RN placed phone call to Dr. Clark requesting orders to insert palacios cath; D/C V/S, CBG'S, SCD'S. Spoke with pt's dtrKathia by phone. She had a many questions about pt going on hospice. Gentle education on quality of live vs qty and symptom management. PC will remain available.
--- NOTE | 2023-09-04 18:21 | NUR ---
SUMMARY- PT A/O X3, PLEASANT AND COOPERATIVE, USES CALL LIGHT TO MAKE NEEDS KNOWN. KNOWS LIMITS. VERBAL AND INTERACTIVE. BEDREST, ROUTINE TURNS. TOLERATING ADA DIET, MECH SOFT THIN. NO ASPIRATION NOTED. DENIES PAIN. RESP EVEN UNLABORED. NAPPED T/O THE DAY. PLACED SPARKS TO KEEP SKIN DRY, CONDOM CATH FAILED MULT TIMES. SKIN INTACT. HEALED BRUISING ON BOTTOM, NO BREAKDOWN. REDNESS IN GROIN AND PANUS CLEANSED AND APPLIED POWDER. PLAN FOR PT TO DC IN HOSPICE TOMORROW. WILL REPORT TO MARILEE LUCIANO.
[2023-09-04 20:00] VITALS: BP 124/48
[2023-09-05 04:06] VITALS: BP 114/53
--- NOTE | 2023-09-05 04:30 | NUR ---
SHIFT SUMMARY LOLIS WAS ALERT AND ORIENTED TO SELF, LOCATION, AND SITUATION. HE DENIES ANY INCREASING SOB, CHEST PAIN OR PRESSURE AND ANY NEW OR WORSENING COMPLAINTS PT HAD NO ACUTE EVENTS TONIGHT, AND NO CHANGES TO CONDITION. PT RESTING IN BED AT A LOW POSITION WITH CALL LIGHT IN REACH, PLAN IS TO GO HOME ON DAY SHIFT W/ HOSPICE.
[2023-09-05 07:54] VITALS: BP 138/63
--- NOTE | 2023-09-05 13:39 | NUR ---
PT D/C HOME WITH HOSPICE @1335 VIA TRANSPORT. CATH CARE COMPLETED AND EMPTIED PRIOR TO D/C. IV IN RHA OUT W/O COMPLICATIONS. HOSPICE ARRIVED TO ASSESS PT THIS AM AND MEETING AT HOUSE POST D/C. JOSI HUTCHISON CALLED HOSPICE AND DAUGHTER TO NOTIFY OF TRANSPORT TIME. FACE SHEET SENT WITH TRANSPORT.
== END 2023-09-05 13:37 | disposition hospice, home (50) | DRG 388 ==
LOC: ER 18:45 → ERHOLD 23:20 → MEDS 23:20 → ENPENDDIS 09-05 10:55 → MEDS 09-05 13:37
PROVIDERS: Emergency Medicine; Family Medicine; Internal Medicine; ADMIT Student in an Organized Health Care Education/Training Program
PROC: 5A09357 Assistance with Respiratory Ventilation, Less than 24 Consecutive Hours, Continuous Positive Airway Pressure (ICD-10-PCS; principal; 2023-08-29)
PROC: 3E03329 Introduction of Other Anti-infective into Peripheral Vein, Percutaneous Approach (ICD-10-PCS; 2023-08-29)
DX: K56.609 Unspecified intestinal obstruction, unspecified as to partial versus complete obstruction (principal); A41.9 Sepsis, unspecified organism; J69.0 Pneumonitis due to inhalation of food and vomit; J96.01 Acute respiratory failure with hypoxia; J44.0 Chronic obstructive pulmonary disease with (acute) lower respiratory infection; G81.91 Hemiplegia, unspecified affecting right dominant side; N40.0 Benign prostatic hyperplasia without lower urinary tract symptoms; I12.9 Hypertensive chronic kidney disease with stage 1 through stage 4 chronic kidney disease, or unspecified chronic kidney disease; N18.31 Chronic kidney disease, stage 3a; K74.60 Unspecified cirrhosis of liver; E78.5 Hyperlipidemia, unspecified; G47.33 Obstructive sleep apnea (adult) (pediatric); D63.1 Anemia in chronic kidney disease; K21.9 Gastro-esophageal reflux disease without esophagitis; K80.20 Calculus of gallbladder without cholecystitis without obstruction; E11.22 Type 2 diabetes mellitus with diabetic chronic kidney disease; Z88.8 Allergy status to other drugs, medicaments and biological substances; Z91.048 Other nonmedicinal substance allergy status; F32.A Depression, unspecified; Z96.652 Presence of left artificial knee joint; Z90.49 Acquired absence of other specified parts of digestive tract; Z98.1 Arthrodesis status; Z98.890 Other specified postprocedural states; Z87.891 Personal history of nicotine dependence; Z79.899 Other long term (current) drug therapy; Z79.811 Long term (current) use of aromatase inhibitors
CPT/HCPCS: 36415; 71045; 74177; 74230; 74250; 76705; 80048; 80053; 80069; 81001; 82728; 82947; 83540; 83550; 83605; 83690; 83735; 84145; 84295; 84484; 85025; 85610; 87040; 87086; 92610; 92611; 93005; 93010; 94660; 94760; 94762; 96361; 96374-59; 96376; 97162; 97530; 99285-25; A9270; C9113; J0295; J0360; J0696; J2405; J2543; J7030; J7042; J7050; J7070; J7120; Q9967

== ENCOUNTER → 2023-12-17 | Outpatient (CLI) | payer OTHER ==
[~2023-12-17] MED LIST changes: +GORMEL TEN228 G1 TOP; -Lactated Ringer's 1,000 ML IV SCH
[2023-12-17 15:23] LABS: Source, Urine Voided
[2023-12-17 17:19] LABS: Appearance, Urine Hazy (Clear); Bilirubin, Urine Neg (Neg); Blood, Urine 4+ (Neg); Color, Urine Yellow (P-Yellow); Glucose Qualitative, Urine Neg (Neg); Ketones, Urine Neg (Neg); Leukocyte Esterase, Urine 3+ (Neg); Nitrite, Urine Neg (Neg); Protein, Urine 2+ (Neg); Specific Gravity, Urine 1.015 (1.003-1.022); Urobilinogen, Urine NORM (Normal)
[2023-12-17 17:31] LABS: White Blood Cells, Urine TNTC /hpf (0-5)
[2023-12-17 17:32] LABS: Bacteria Many /hpf; Squamous Epithelial Cells Few /hpf (Few); Transitional Epithelial Cells Few /hpf (0-Rare)
== END | disposition home or self-care (01) ==
LOC: LAB SHORT 15:17 → LAB 15:17
PROVIDERS: Physician Assistant
DX: R30.0 Dysuria (principal)
CPT/HCPCS: 81001; 87077; 87086; 87186

== ENCOUNTER → 2024-07-22 | Outpatient (CLI) | payer OTHER ==
[2024-07-22 15:28] LABS: Source, Urine Straight Cath
[2024-07-22 17:19] LABS: Appearance, Urine Cloudy (Clear); Bilirubin, Urine Neg (Neg); Blood, Urine 5+ (Neg); Color, Urine Yellow (P-Yellow); Glucose Qualitative, Urine Neg (Neg); Ketones, Urine Neg (Neg); Leukocyte Esterase, Urine 3+ (Neg); Nitrite, Urine Neg (Neg); Protein, Urine 3+ (Neg); Urobilinogen, Urine NORM (Normal)
[2024-07-22 17:26] LABS: Bacteria Many /hpf; Red Blood Cells, Urine TNTC /hpf (0-2); Squamous Epithelial Cells Rare /hpf (Few); Transitional Epithelial Cells Rare /hpf (0-Rare); Triple Phosphate Crystals Few /hpf; White Blood Cells, Urine TNTC /hpf (0-5)
== END ==
LOC: LAB 15:26 → LAB SHORT 15:26
PROVIDERS: Physician Assistant
DX: E11.22 Type 2 diabetes mellitus with diabetic chronic kidney disease (principal); N18.30 Chronic kidney disease, stage 3 unspecified; R33.8 Other retention of urine; N40.1 Benign prostatic hyperplasia with lower urinary tract symptoms; R82.998 Other abnormal findings in urine
CPT/HCPCS: 81001; 87086

== ENCOUNTER → 2024-07-29 | Outpatient (CLI) | payer OTHER ==
[2024-07-29 17:55] LABS: Source, Urine Voided
[2024-07-29 19:15] LABS: Appearance, Urine Cloudy (Clear); Bilirubin, Urine Neg (Neg); Blood, Urine 3+ (Neg); Glucose Qualitative, Urine Neg (Neg); Ketones, Urine Neg (Neg); Leukocyte Esterase, Urine 3+ (Neg); Nitrite, Urine Pos (Neg); Protein, Urine 2+ (Neg); Urobilinogen, Urine NORM (Normal)
[2024-07-29 19:59] LABS: Color, Urine Pale Yellow (P-Yellow)
[2024-07-29 20:00] LABS: Squamous Epithelial Cells Rare /hpf (Few); White Blood Cells, Urine 25-50 /hpf (0-5)
[2024-07-29 20:01] LABS: Bacteria Many /hpf; Mucus Light (0-Heavy); Transitional Epithelial Cells Rare /hpf (0-Rare)
== END ==
LOC: LAB 17:52 → LAB SHORT 17:52
PROVIDERS: Physician Assistant
DX: N39.0 Urinary tract infection, site not specified (principal)
CPT/HCPCS: 81001; 87086

== ENCOUNTER 2024-08-12 10:34 | Inpatient (IN) | payer OTHER ==
[~2024-08-12] VITALS: Ht 167.6 cm; Wt 100.3 kg
[2024-08-12 11:30] LABS: BASOPHILS ABSOLUTE AUTO 0.03 K/mm3 (0.00-0.23); BASOPHILS PERCENT AUTO 1 % (0-2); EOSINOPHILS ABSOLUTE AUTO 0.23 K/mm3 (0.00-0.68); EOSINOPHILS PERCENT AUTO 4 % (0-6); Hematocrit 35.2 % (37.0-53.0); Hemoglobin 11.8 g/dL (13.5-17.5); IMMATURE GRAN PERCENT AUTO 0 % (0-1); LYMPHOCYTES ABSOLUTE AUTO 1.75 K/mm3 (0.84-5.20); LYMPHOCYTES PERCENT AUTO 30 % (21-46); MONOCYTES ABSOLUTE AUTO 0.38 K/mm3 (0.16-1.47); MONOCYTES PERCENT AUTO 6 % (4-13); Mean Corpuscular HGB 32.5 pg (26.0-34.0); Mean Corpuscular HGB Conc 33.5 g/dL (31.5-36.5); Mean Corpuscular Volume 97 fL (80-100); Mean Platelet Volume 10.2 fL (9.1-12.4); NEUTROPHILS ABSOLUTE AUTO 3.52 K/mm3 (1.96-9.15); NEUTROPHILS PERCENT AUTO 60 % (41-73); Platelet Count 128 K/mm3 (150-400); RDW Coefficient Variation 14.4 % (11.7-14.2); RDW Standard Deviation 51.6 fL (35.1-46.3); Red Blood Cell Count 3.63 M/mm3 (4.30-5.90); White Blood Cell Count 5.91 K/mm3 (4.00-11.30)
[2024-08-12 12:00] LABS: Albumin, Blood 3.6 g/dL (3.4-5.0); Albumin/Globulin Ratio 0.9 (0.8-1.8); Bilirubin, Total 0.6 mg/dL (0.1-1.0); Bun/Creatinine Ratio 16.7 (12.0-20.0); Calcium, Blood 9.1 mg/dL (8.5-10.1); Creatinine, Blood 1.5 mg/dL (0.60-1.20); Potassium, Blood 5.3 mmol/L (3.5-5.5); Total Protein, Blood 7.6 g/dL (6.4-8.2)
[2024-08-12 12:54] LABS: Source, Urine Straight Cath
[2024-08-12 13:04] LABS: Appearance, Urine Hazy (Clear); Bilirubin, Urine Neg (Neg); Blood, Urine 2+ (Neg); Color, Urine Yellow (P-Yellow); Glucose Qualitative, Urine Neg (Neg); Ketones, Urine Neg (Neg); Leukocyte Esterase, Urine 3+ (Neg); Nitrite, Urine Pos (Neg); Protein, Urine 2+ (Neg); Specific Gravity, Urine 1.015 (1.003-1.022); Urobilinogen, Urine NORM (Normal)
[2024-08-12 13:17] LABS: Amorphous Light (0-Heavy); Bacteria Many /hpf; Mucus Light (0-Heavy); Squamous Epithelial Cells Rare /hpf (Few); White Blood Cells, Urine 50-100 /hpf (0-5)
[2024-08-12] MEDS ORDERED: CefTRIAXone Sodium 1,000 MG in NS 100 ML IV ONE (13:35)
[2024-08-12] MEDS ORDERED: Lactulose 20 GM/30 ML UDC PO ONE (13:55)
[2024-08-12] MEDS ORDERED: FLU VACC TS2024-25(6MOS UP)/PF 45 MCG/0.5 ML SYRINGE IM PRN (15:40)
[2024-08-12] MEDS ORDERED: Lactulose 20 GM/30 ML UDC PO SCH (16:00)
[2024-08-12] MEDS ORDERED: Prinivil10 MG PO (16:35)
[2024-08-12] MEDS ORDERED: TERA5 PO (16:36)
[2024-08-12] MEDS ORDERED: TRAM50 PO (16:36)
[2024-08-12] MEDS ORDERED: TRAZ50 PO (16:37)
[2024-08-12 17:23] VITALS: BP 128/52
[2024-08-12] MEDS ORDERED: FT SENNA-S 8.61 EACH PO (17:27)
--- NOTE | 2024-08-12 18:06 | NUR ---
New patient admit. Wht and time doc, vitals performed, skin check, excess linens and garbage. 2 nurses and sales assistant institutional sales prsnt. Thigh length laila hose applied, pink foam heel protecters applied, sensitive heels, Right side deficit noted, no resp issues, per lactulose admin by r.n. added several layers of paperchucks, chronic cath check, looks good, output a bit dark, pleasant mood, face and oral cleanup and lotion applied, fresh ice water provided, scrotum rawness sensitivty, needs nystatin. skin looks great otherwise. r.n. cont'd admit setup.
[2024-08-12 20:29] VITALS: BP 130/67
[2024-08-13 02:49] VITALS: BP 160/62
--- NOTE | 2024-08-13 04:07 | NUR ---
SHIFT SUMMARY - PT IS [place], AND AT TIMES PT WAS DIFFICULT TO UNDERSTAND. PT DOESN'T USE THE CALL LIGHT APPROPRIATELY. PT CALLS OUT WHEN HE REQUESTS HELP - REORIENTED TO CALL LIGHT - PT REPORTS HIS LEFT HAND IS STRONGER THAN HIS RIGHT HAND - CALL LIGHT IN LEFT HAND. PT HAD A VERY LARGE LIQUID STOOL LAST NOC - LACTULOSE GIVEN EARLIER IN THE SHIFT. PT WAS TALKING IN HIS SLEEP THIS MORNING. PT GIVEN A PARTIAL BED BATH/GOWN CHANGE WITH LARGE BM. BED IN LOW POSITION. BED ALARM ON FOR PT SAFETY.
[2024-08-13 06:40] LABS: BASOPHILS ABSOLUTE AUTO 0.04 K/mm3 (0.00-0.23); BASOPHILS PERCENT AUTO 1 % (0-2); EOSINOPHILS ABSOLUTE AUTO 0.28 K/mm3 (0.00-0.68); EOSINOPHILS PERCENT AUTO 5 % (0-6); Hematocrit 35.6 % (37.0-53.0); Hemoglobin 11.6 g/dL (13.5-17.5); IMMATURE GRAN ABSOLUTE AUTO 0.02 K/mm3 (0.00-0.10); IMMATURE GRAN PERCENT AUTO 0 % (0-1); LYMPHOCYTES ABSOLUTE AUTO 1.87 K/mm3 (0.84-5.20); LYMPHOCYTES PERCENT AUTO 32 % (21-46); MONOCYTES PERCENT AUTO 7 % (4-13); Mean Corpuscular HGB 32.5 pg (26.0-34.0); Mean Corpuscular HGB Conc 32.6 g/dL (31.5-36.5); Mean Corpuscular Volume 100 fL (80-100); Mean Platelet Volume 10.4 fL (9.1-12.4); NEUTROPHILS ABSOLUTE AUTO 3.29 K/mm3 (1.96-9.15); NEUTROPHILS PERCENT AUTO 56 % (41-73); Platelet Count 151 K/mm3 (150-400); RDW Coefficient Variation 14.6 % (11.7-14.2); RDW Standard Deviation 53.5 fL (35.1-46.3); Red Blood Cell Count 3.57 M/mm3 (4.30-5.90)
[2024-08-13 07:07] LABS: Albumin, Blood 3.5 g/dL (3.4-5.0); Albumin/Globulin Ratio 0.9 (0.8-1.8); Bilirubin, Total 0.6 mg/dL (0.1-1.0); Bun/Creatinine Ratio 18.9 (12.0-20.0); Calcium, Blood 9.1 mg/dL (8.5-10.1); Creatinine, Blood 1.43 mg/dL (0.60-1.20); Globulin, Blood 4.1 g/dL (2.2-4.0); Total Protein, Blood 7.6 g/dL (6.4-8.2)
[2024-08-13] MEDS ORDERED: Enoxaparin 40 MG/0.4 ML SYR SC SCH (09:00)
[2024-08-13] MEDS ORDERED: CefTRIAXone Sodium 1,000 MG in NS 100 ML IV SCH (14:00)
--- NOTE | 2024-08-13 18:19 | NUR ---
NO ACUTE CHANGES THIS SHIFT LACTULOSE CONTINUED, PT IS ALERT AND ORIENTED X3, YELLS OUT PERIODICALY FOR SPOUSE, PT IS EASILY REDIRECTABLE, PT IS Q 2HR TURN, 2 BM THIS SHIFT. CALLS OUT, DOES NOT USE CALL LIGHT DUE TO LIMITED USE OF HANDS. SPOUSE UPDATED VIA PHONE. SPARKS BAG DRAINING TO GRAVITY, MEATUS IS RED, INFLAMMED, SPLIT AND WHITE/BROWN DISCHARGE NOTED. CATH CARE PROVIDE 3X THIS SHIFT. PT DENIES PAIN.
[2024-08-13 20:54] VITALS: BP 159/71
--- NOTE | 2024-08-14 03:54 | NUR ---
SHIFT SUMMARY PT ALERT ORIENTED X 4 WITH FORGETFULNESS ABLE TO VERBALIZE NEEEDS. HE HAS BEEN REALLY RESTLESS TONITE AND HAS TRIED GETTING OUT OF BED BY HIMSELF. BED ALARM IS ON AT ALL TIMES. HE REMAINS ON LACTULOSE FOR THE HEPATIC ENCEPHALOPATHY. CONTINUES WITH LOOSE STOOLS R/T LACTULOSE. HES INC OF BOWEL. REMAINS WITH A SPARKS CATHETER DRAINING YELLOW URINE. NO C/O PAIN THIS SHIFT. VSS ON RA SATTING AT 93%. REMAINS ON ROCEPHIN ORDERED. HES KEPT TURNED AND REPOSITIONED Q2HR. RESTING IN BED AT THIS TIME WITH CALL LIGHT IN REACH
[2024-08-14 05:07] VITALS: BP 168/76
[2024-08-14 06:37] LABS: BASOPHILS ABSOLUTE AUTO 0.03 K/mm3 (0.00-0.23); BASOPHILS PERCENT AUTO 1 % (0-2); EOSINOPHILS ABSOLUTE AUTO 0.19 K/mm3 (0.00-0.68); EOSINOPHILS PERCENT AUTO 3 % (0-6); Hematocrit 37.6 % (37.0-53.0); Hemoglobin 12.7 g/dL (13.5-17.5); IMMATURE GRAN ABSOLUTE AUTO 0.01 K/mm3 (0.00-0.10); IMMATURE GRAN PERCENT AUTO 0 % (0-1); LYMPHOCYTES ABSOLUTE AUTO 1.46 K/mm3 (0.84-5.20); LYMPHOCYTES PERCENT AUTO 23 % (21-46); MONOCYTES ABSOLUTE AUTO 0.47 K/mm3 (0.16-1.47); MONOCYTES PERCENT AUTO 7 % (4-13); Mean Corpuscular HGB 32.5 pg (26.0-34.0); Mean Corpuscular HGB Conc 33.8 g/dL (31.5-36.5); Mean Corpuscular Volume 96 fL (80-100); NEUTROPHILS ABSOLUTE AUTO 4.26 K/mm3 (1.96-9.15); NEUTROPHILS PERCENT AUTO 66 % (41-73); Platelet Count 167 K/mm3 (150-400); RDW Coefficient Variation 14.2 % (11.7-14.2); RDW Standard Deviation 50.6 fL (35.1-46.3); Red Blood Cell Count 3.91 M/mm3 (4.30-5.90); White Blood Cell Count 6.42 K/mm3 (4.00-11.30)
[2024-08-14 07:01] LABS: Albumin, Blood 3.6 g/dL (3.4-5.0); Albumin/Globulin Ratio 0.8 (0.8-1.8); Bilirubin, Total 0.7 mg/dL (0.1-1.0); Bun/Creatinine Ratio 19.5 (12.0-20.0); Calcium, Blood 9.2 mg/dL (8.5-10.1); Creatinine, Blood 1.13 mg/dL (0.60-1.20); Globulin, Blood 4.4 g/dL (2.2-4.0); Potassium, Blood 4.6 mmol/L (3.5-5.5)
[2024-08-14 07:05] VITALS: BP 144/69
[2024-08-14] MEDS ORDERED: NS 250 ML IV PRN (15:40)
[2024-08-14] MEDS ORDERED: Meropenem 1,000 MG in NS 100 ML IV SCH (16:00)
[2024-08-14] MEDS ORDERED: Ampicillin Sod 2,000 MG in NS 100 ML IV SCH (18:00)
--- NOTE | 2024-08-14 18:06 | NUR ---
SHIFT SUMMARY: PATIENT A/OX2-3, INTERMITTENT CONFUSION AND YELLS OUT FOR HELP, BUT EASILY REDIRECTABLE. PATIENT ON SCHEDULED LACTULOSE, NO BM THIS SHIFT. PATIENT HAS CHRONIC SPARKS, PATENT DRAINING TANIA COLOR URINE TO GRAVITY, FEED ASSIST c ALL MEALS AND TOLERATING CURRENT DIET WELL. PATIENT IV ABX WAS CHANGED TO MEROPENEM AND AMPCILLIN TODAY, RECEIVED FIRST SCHEDULED DOSE THIS PM. PATIENT Q2 TURN, REFUSED KAROL HOSE THIS SHIFT. VITAL SIGNS REVIEWED. BED ALARM ON FOR SAFETY. CALL LIGHT IN REACH.
[2024-08-14 18:17] VITALS: BP 166/70
[2024-08-14 20:21] VITALS: BP 171/78
[2024-08-14] MEDS ORDERED: Lactobacil 2-S.Thermo-Bifido 1 1 Cap PO SCH (21:00)
--- NOTE | 2024-08-15 03:00 | NUR ---
SHIFT SUMM: PT IS A 79 YO DNR WHO WAS ADMITTED FOR ACUTE METABOLIC ENCEPHALOPOTHY/UTI. PT IS BEDBOUND AND INCONT TO BOWEL AND URINE. PT IS CONFUSED A&O2-3. PT WILL NO USE CALL LIGHT AND WILL CALL OUT THROUGHOUT THE NIGHT. PT STATES HE IS NOT IN PAIN AND IS COOPERATIVE WITH CARE. PT HAS A CHRONIC SPARKS W/HIST OF BPH. PT HAS A SPLIT DOWN HIS MEATUS FROM THE CHRONIC SPARKS THAT IS TENDER. PT IS ON LACTULOSE AND HAS A LARGE BM THIS SHIFT. ESBL IN URINE. PT WILL REMAIN AT HOSPITAL UNTIL HE IS DONE WITH IS IV ANTIBIOTICS, PT IS PLEASANT AND BED ALARM IS SET FOR SAFETY W/CALL LIGHT IN REACH.
[2024-08-15 03:49] VITALS: BP 167/75
[2024-08-15 07:34] VITALS: BP 178/81
[2024-08-15 09:26] LABS: BASOPHILS ABSOLUTE AUTO 0.04 K/mm3 (0.00-0.23); BASOPHILS PERCENT AUTO 1 % (0-2); EOSINOPHILS ABSOLUTE AUTO 0.19 K/mm3 (0.00-0.68); EOSINOPHILS PERCENT AUTO 3 % (0-6); Hemoglobin 12.8 g/dL (13.5-17.5); IMMATURE GRAN ABSOLUTE AUTO 0.02 K/mm3 (0.00-0.10); IMMATURE GRAN PERCENT AUTO 0 % (0-1); LYMPHOCYTES ABSOLUTE AUTO 1.33 K/mm3 (0.84-5.20); LYMPHOCYTES PERCENT AUTO 20 % (21-46); MONOCYTES ABSOLUTE AUTO 0.44 K/mm3 (0.16-1.47); MONOCYTES PERCENT AUTO 7 % (4-13); Mean Corpuscular HGB 32.6 pg (26.0-34.0); Mean Corpuscular HGB Conc 33.7 g/dL (31.5-36.5); Mean Corpuscular Volume 97 fL (80-100); Mean Platelet Volume 9.5 fL (9.1-12.4); NEUTROPHILS ABSOLUTE AUTO 4.65 K/mm3 (1.96-9.15); NEUTROPHILS PERCENT AUTO 70 % (41-73); Platelet Count 167 K/mm3 (150-400); RDW Standard Deviation 50.3 fL (35.1-46.3); Red Blood Cell Count 3.93 M/mm3 (4.30-5.90); White Blood Cell Count 6.67 K/mm3 (4.00-11.30)
[2024-08-15 09:48] LABS: Bun/Creatinine Ratio 21.2 (12.0-20.0); Calcium, Blood 9.2 mg/dL (8.5-10.1); Creatinine, Blood 1.04 mg/dL (0.60-1.20); Potassium, Blood 4.3 mmol/L (3.5-5.5)
[2024-08-15] MEDS ORDERED: Lisinopril 10 MG Tab PO SCH (15:19)
[2024-08-15 15:42] VITALS: BP 159/67
--- NOTE | 2024-08-15 17:22 | NUR ---
SHIFT SUMMARY: PATIENT A/OX2-3, INTERMITTENT CONFUSION, BUT EASILY REDIRECTABLE. PATIENT HYPERTENSIVE, DR. MINOR IS AWARE AND STARTED HIM BACK ON HOME DOSE LISINOPRIL, RECEIVED BP DOSE THIS PM. PATIENT INCONTINENT OF BOWEL AND HAD 6 LOOSE STOOL THIS SHIFT. PATIENT LACTULOSE CHANGED TO BID. PATIENT RECEIVED IV ABX PER ORDER. PATIENT CHRONIC SPARKS PATENT DRAINING YELLOW URINE TO GRAVITY. Q2 TURN, MIPELEX DRESSING CHANGED TO COCCYX. VITAL SIGNS REVIEWED. BED ALARM ON FOR SAFETY. CALL LIGHT IN REACH.
[2024-08-15 19:59] VITALS: BP 164/67
[2024-08-15] MEDS ORDERED: Lactulose 20 GM/30 ML UDC PO SCH (21:00)
[2024-08-16 01:56] VITALS: BP 141/83
--- NOTE | 2024-08-16 06:50 | NUR ---
SHIFT SUMMARY PT ALERT AND ORIENTED TIMES 2. PT ADMITTED FOR ACUTE METABOLIC ENCEPHALOPATHY, UTI. PT HAS HAD MULTIPLE WET AND WATERY STOOLS. HELD LACTULOSE. PT IS Q2 TURN AND TAKES MEDS WITH WATER. PT IS POLITE TO STAFF AND RECEPTIVE TO CARE. PT HAS CHRONIC SPARKS. PT APPEARED TO SLEEP THROUGH THE NIGHT. CALL LIGHT WITHIN REACH, RAILS TIMES 2, BED IN LOW POSITION.
[2024-08-16 07:37] VITALS: BP 150/65
[2024-08-16 09:01] LABS: BASOPHILS ABSOLUTE AUTO 0.04 K/mm3 (0.00-0.23); BASOPHILS PERCENT AUTO 1 % (0-2); EOSINOPHILS ABSOLUTE AUTO 0.18 K/mm3 (0.00-0.68); EOSINOPHILS PERCENT AUTO 3 % (0-6); Hematocrit 36.6 % (37.0-53.0); Hemoglobin 12.3 g/dL (13.5-17.5); IMMATURE GRAN ABSOLUTE AUTO 0.02 K/mm3 (0.00-0.10); IMMATURE GRAN PERCENT AUTO 0 % (0-1); LYMPHOCYTES ABSOLUTE AUTO 1.34 K/mm3 (0.84-5.20); LYMPHOCYTES PERCENT AUTO 24 % (21-46); MONOCYTES ABSOLUTE AUTO 0.46 K/mm3 (0.16-1.47); MONOCYTES PERCENT AUTO 8 % (4-13); Mean Corpuscular HGB Conc 33.6 g/dL (31.5-36.5); Mean Corpuscular Volume 95 fL (80-100); Mean Platelet Volume 9.7 fL (9.1-12.4); NEUTROPHILS ABSOLUTE AUTO 3.63 K/mm3 (1.96-9.15); NEUTROPHILS PERCENT AUTO 64 % (41-73); Platelet Count 174 K/mm3 (150-400); RDW Coefficient Variation 14.1 % (11.7-14.2); RDW Standard Deviation 49.6 fL (35.1-46.3); Red Blood Cell Count 3.84 M/mm3 (4.30-5.90); White Blood Cell Count 5.67 K/mm3 (4.00-11.30)
[2024-08-16 09:16] LABS: Bun/Creatinine Ratio 23.3 (12.0-20.0); Creatinine, Blood 1.03 mg/dL (0.60-1.20)
[2024-08-16] MEDS ORDERED: Acetaminophen 325 MG TABLET PO PRN (10:35)
[2024-08-16 15:44] VITALS: BP 167/74
--- NOTE | 2024-08-16 16:25 | NUR ---
PT IS A/OX3, PLEASANT AND COOPERATIVE. PT HAS BEEN SLEEPY FOR MOST OF THE DAY WAKES UP EASILY. PT HAS A POOR APPETITE. PT HAS HAD 3 LARGE SOFT UNFORMED BM'S TODAY. PT WAS GIVEN TYLENOL FOR MILD BACK PAIN. PT IS A FEEDER UNABLE TO MOVE HIS RIGHT ARM DUE TO PREVIOUS STROKE. PT WAS REPOSITIONED T/O THE DAY CALL LIGHT IN REACH,BED ALARM ON
--- NOTE | 2024-08-16 17:38 | NUR ---
ASSUMED CARE OF PATIENT, PT SMILED WHEN I ENTERED ROOM. PT STATES NO NEEDS AT THIS TIME
--- NOTE | 2024-08-16 18:44 | NUR ---
FED PT DINNER ATTENDS CLEAN AND DRY. PT WATCHING SUPERBOWL ON TV. PT DENIES ANY NEEDS AT THIS TIME
[2024-08-16 19:27] VITALS: BP 180/69
--- NOTE | 2024-08-16 22:49 | NUR ---
CALL FROM PHARMACY RE NEW ORDER FOR MINIPRESS MG AT HS. PT REPORTS MEDICATION "SOUNDS FAMILIAR." PER JOSUE PHARMACIST, MEDICATION WILL BECOME ACTIVE AND TO PASS ONTO DAY SHIFT TO TRY AND VERIFY MEDS.
--- NOTE | 2024-08-17 02:07 | NUR ---
ADMINISTERED PT MEROPENEM PER SEP. PT APPEARED TO TOLERATE WITHOUT COMPLAINT.
[2024-08-17 04:10] VITALS: BP 179/71
--- NOTE | 2024-08-17 05:24 | NUR ---
PUBLIC HEALTH TEACHER SUMMARY: PT ADMITTED FOR UTI AND HEPATIC ENCEPHALOPATHY. A&O X3. MAKES SIMPLE NEEDS KNOWN. CONTACT ISOLATION IN PLACE FOR ESBL. CHRONIC SPARKS DRAINING YELLOW URINE. PREVIOUS CVA WITH R SIDED WEAKNESS. NO ADVERSE SIDE EFFECTS TO IV ABX. PLAN IS TO D/C HOME UPON COMPLETITON OF IV ABX. TURN Q 2H SCHEDULE IN PLACE. CALL LIGHT IN REACH. CARES CONTINUE ORDERD.
[2024-08-17 07:30] VITALS: BP 182/75
[2024-08-17 08:56] LABS: BASOPHILS ABSOLUTE AUTO 0.03 K/mm3 (0.00-0.23); BASOPHILS PERCENT AUTO 1 % (0-2); EOSINOPHILS PERCENT AUTO 4 % (0-6); Hematocrit 36.8 % (37.0-53.0); Hemoglobin 12.6 g/dL (13.5-17.5); IMMATURE GRAN ABSOLUTE AUTO 0.01 K/mm3 (0.00-0.10); IMMATURE GRAN PERCENT AUTO 0 % (0-1); LYMPHOCYTES PERCENT AUTO 27 % (21-46); MONOCYTES PERCENT AUTO 8 % (4-13); Mean Corpuscular HGB 32.7 pg (26.0-34.0); Mean Corpuscular HGB Conc 34.2 g/dL (31.5-36.5); Mean Corpuscular Volume 96 fL (80-100); Mean Platelet Volume 9.7 fL (9.1-12.4); NEUTROPHILS ABSOLUTE AUTO 2.88 K/mm3 (1.96-9.15); NEUTROPHILS PERCENT AUTO 60 % (41-73); Platelet Count 154 K/mm3 (150-400); RDW Standard Deviation 49.1 fL (35.1-46.3); Red Blood Cell Count 3.85 M/mm3 (4.30-5.90); White Blood Cell Count 4.82 K/mm3 (4.00-11.30)
[2024-08-17 09:22] LABS: Bun/Creatinine Ratio 24.1 (12.0-20.0); Calcium, Blood 9.5 mg/dL (8.5-10.1); Creatinine, Blood 0.91 mg/dL (0.60-1.20); Potassium, Blood 4.1 mmol/L (3.5-5.5)
[2024-08-17 15:27] VITALS: BP 170/71
--- NOTE | 2024-08-17 16:34 | NUR ---
SHIFT SUMMARY PT AOX3/4, COOPERATTIVE, ABLE TO MAKE NEEDS KNOWN. PT IS BED REST IS SPARKS CATH DRAINING TO GRAVITY. WOUND ON BUTTOCKS, CHANGED MEPILEX. PT HAS BEEN EATING MEALS WELL, AND TAKING PO/IV MEDICATIONS APPROPRIATELY. HAS HAD 2 BOWEL MOVEMENTS TODAY. SUPPOSED TO DC IN THE NEXT 2 DAYS. BED IN LOWEST POSITION, CALL LIGHT WITHIN REACH.
[2024-08-17 19:52] VITALS: BP 186/69
[2024-08-17] MEDS ORDERED: Prazosin HCL 5 MG Cap PO SCH (21:00)
[2024-08-18 01:58] VITALS: BP 114/57
--- NOTE | 2024-08-18 05:38 | NUR ---
SHIFT SUMMARY PATIENT IS ALERT AND ORIENTED. PATIENT HAS HAD NO ACUTE EVENTS THIS SHIFT. PATIENT HAS HAD NO COMPLAINTS OF PAIN, NAUSEA, SOB OR VOMITTING THIS SHIFT. VITAL SIGNS REVIEWED. IV ABX INFUSED ORDERED. BED IN LOCKED AND LOWEST POSITION. ABX INFUSED.
[2024-08-18 07:27] VITALS: BP 130/57
[2024-08-18 08:50] LABS: BASOPHILS ABSOLUTE AUTO 0.03 K/mm3 (0.00-0.23); BASOPHILS PERCENT AUTO 1 % (0-2); EOSINOPHILS ABSOLUTE AUTO 0.14 K/mm3 (0.00-0.68); EOSINOPHILS PERCENT AUTO 3 % (0-6); Hematocrit 34.5 % (37.0-53.0); Hemoglobin 11.8 g/dL (13.5-17.5); IMMATURE GRAN ABSOLUTE AUTO 0.01 K/mm3 (0.00-0.10); IMMATURE GRAN PERCENT AUTO 0 % (0-1); LYMPHOCYTES ABSOLUTE AUTO 1.33 K/mm3 (0.84-5.20); LYMPHOCYTES PERCENT AUTO 30 % (21-46); MONOCYTES ABSOLUTE AUTO 0.37 K/mm3 (0.16-1.47); MONOCYTES PERCENT AUTO 8 % (4-13); Mean Corpuscular HGB 32.7 pg (26.0-34.0); Mean Corpuscular HGB Conc 34.2 g/dL (31.5-36.5); Mean Corpuscular Volume 96 fL (80-100); Mean Platelet Volume 9.7 fL (9.1-12.4); NEUTROPHILS ABSOLUTE AUTO 2.51 K/mm3 (1.96-9.15); NEUTROPHILS PERCENT AUTO 57 % (41-73); Platelet Count 138 K/mm3 (150-400); RDW Coefficient Variation 13.9 % (11.7-14.2); RDW Standard Deviation 49.4 fL (35.1-46.3); Red Blood Cell Count 3.61 M/mm3 (4.30-5.90); White Blood Cell Count 4.39 K/mm3 (4.00-11.30)
[2024-08-18 09:09] LABS: Bun/Creatinine Ratio 26.3 (12.0-20.0); Calcium, Blood 8.7 mg/dL (8.5-10.1); Creatinine, Blood 0.95 mg/dL (0.60-1.20); Potassium, Blood 4.2 mmol/L (3.5-5.5)
[2024-08-18 15:30] VITALS: BP 147/106
[2024-08-18 15:33] VITALS: BP 163/69
--- NOTE | 2024-08-18 16:43 | NUR ---
SHIFT SUMMARY PT AOX3/4, COOPERATIVE, ABLE TO MAKE NEEDS KNOWN. PT HAS BEEN BEDREST FOR SHIFT. TOELERATING PO AND IV MEDICATIONS APPROPRIATELY. SPARKS CATH PATENT AND DRAINING TO GRAVITY. PT HAS BEEN REQUIRING FEEDING ASSISTANCE EVERY MEAL TIME. SHOULD DC 08/19/24. BED IN LOWEST POSITION, CALL LIGHT WITHIN REACH.
[2024-08-18 20:32] VITALS: BP 175/78
[2024-08-19 03:36] VITALS: BP 132/60
--- NOTE | 2024-08-19 05:29 | NUR ---
SHIFT SUMMARY PT ALERT AND ORIENTED TIMES 3. PT HAS CHRONIC SPARKS THAT IS DRAINING WELL, CONTACT PERCAUTION ESBL URINE. PT IS INCONTINENT OF BOWEL, STOOLS ARE LOOSE AND WET NON FORMED.. PT IS 2 PERSON Q2 TURN. PT TAKES MEDS WHOLE WITH WATER, DOES NOT HAVE TELE, AND ON ROOM AIR. PER ON-CALL GAVE 08/19/24 OOOO DOSE OF AMPICILLAN AND MEROPENEM. PT APPEARED TO SLEEP THROUGH THE NIGHT WITHOUT ISSUE. PT IS RECEPTIVE TO CARE. BED IN LOW POSITION, CALL LIGHT WITHIN REACH, RAILS TIMES 2.
--- NOTE | 2024-08-19 05:37 | NUR ---
PER ON-CALL DR ADMINISTERED 08/19/24 0000 DOSE OF AMPICILLAN AND MEROPENEM. THERE IS A DR NOTE THAT [facility] WAS TO RUN FROM 08/14-08/18 BUT THERE WAS NO DC OR STOP DATE ORDERED. PACK OPERATOR ADVISED TO GIVE THE 0000 DOSE, NOT THE 0600 DOSES, AND ADVISE DAY RN. PT IS POSSIBLE DC TODAY.
[2024-08-19 07:09] VITALS: BP 151/65
--- NOTE | 2024-08-19 07:19 | NUR ---
CALLED MD TO CONFIRM HOLD ANTIBIOTICS IV MD NOTE STATES. MD STATES MAY ADMINISTER THE MORNGING DOSES OF AMPICILLIN AND MERREM THAT ARE SCHEDULED FOR 0600 AND 0800. PLAN TO DISCHARGE LATER TODAY.
[2024-08-19] MEDS ORDERED: Acetaminophen650 M1 PO (09:15)
[2024-08-19] MEDS ORDERED: VISBIOME 112.51 EACH PO (09:15)
[2024-08-19] MEDS ORDERED: LACT10SY PO (09:18)
[2024-08-19 09:31] LABS: BASOPHILS ABSOLUTE AUTO 0.03 K/mm3 (0.00-0.23); BASOPHILS PERCENT AUTO 1 % (0-2); EOSINOPHILS ABSOLUTE AUTO 0.21 K/mm3 (0.00-0.68); EOSINOPHILS PERCENT AUTO 5 % (0-6); Hematocrit 34.5 % (37.0-53.0); Hemoglobin 11.6 g/dL (13.5-17.5); IMMATURE GRAN ABSOLUTE AUTO 0.01 K/mm3 (0.00-0.10); IMMATURE GRAN PERCENT AUTO 0 % (0-1); LYMPHOCYTES ABSOLUTE AUTO 1.21 K/mm3 (0.84-5.20); LYMPHOCYTES PERCENT AUTO 30 % (21-46); MONOCYTES ABSOLUTE AUTO 0.25 K/mm3 (0.16-1.47); MONOCYTES PERCENT AUTO 6 % (4-13); Mean Corpuscular HGB Conc 33.6 g/dL (31.5-36.5); Mean Corpuscular Volume 95 fL (80-100); Mean Platelet Volume 9.8 fL (9.1-12.4); NEUTROPHILS ABSOLUTE AUTO 2.33 K/mm3 (1.96-9.15); NEUTROPHILS PERCENT AUTO 58 % (41-73); Platelet Count 130 K/mm3 (150-400); RDW Coefficient Variation 13.7 % (11.7-14.2); RDW Standard Deviation 48.1 fL (35.1-46.3); Red Blood Cell Count 3.63 M/mm3 (4.30-5.90); White Blood Cell Count 4.04 K/mm3 (4.00-11.30)
[2024-08-19 09:55] LABS: Bun/Creatinine Ratio 26.5 (12.0-20.0); Calcium, Blood 9.1 mg/dL (8.5-10.1); Creatinine, Blood 0.79 mg/dL (0.60-1.20)
[2024-08-19] MEDS ORDERED: PRAZ5 PO (10:35)
--- NOTE | 2024-08-19 13:24 | NUR ---
DISCHARGE NOTE PATIENT A/OX3, ABLE TO MAKE NEEDS KNOWN. PLEASANT AND COOPERATVIE WITH CARE. BEDBOUND AT BASELINE, 2 PERSON MAX ASSIST WITH RIGHT SIDED DEFICITS R/T HX OF CVA. IV REMOVED PRIOR TO DISCHARGE. PATIENT EDUCATED REGARDING NEW MEDICATIONS AND FOLLOW UP APPOINTMENTS. CALLED , ANDRADE, TO DISCUSS DISCHARGE PLAN WELL NEW MEDICATIONS. PATIENT AND SPOUSE WITH NO QUESTIONS AT TIME OF DISCHARGE, AWAITING [facility] TRANSPORTATION TO TAKE PATIENT HOME. NO OTHER CONCERNS AT THIS TIME.
--- NOTE | 2024-08-19 14:53 | NUR ---
PATIENT LEFT VIA [facility]NEY WITH TRANSPORTATION. CALLED SPOUSE, ANDRADE, TO NOTIFY.
== END 2024-08-19 14:51 | disposition home health service (06) | DRG 441 ==
LOC: ER 10:34 → MEDS 10:35 → ENPENDDIS 08-19 11:25 → MEDS 08-19 14:51
PROVIDERS: Emergency Medicine; Student in an Organized Health Care Education/Training Program; ADMIT Family Medicine
DX: K76.82 Hepatic encephalopathy (principal); G92.8 Other toxic encephalopathy; N39.0 Urinary tract infection, site not specified; Z16.12 Extended spectrum beta lactamase (ESBL) resistance; I69.951 Hemiplegia and hemiparesis following unspecified cerebrovascular disease affecting right dominant side; J44.9 Chronic obstructive pulmonary disease, unspecified; I10 Essential (primary) hypertension; K74.60 Unspecified cirrhosis of liver; E11.9 Type 2 diabetes mellitus without complications; B96.1 Klebsiella pneumoniae [K. pneumoniae] as the cause of diseases classified elsewhere; B95.2 Enterococcus as the cause of diseases classified elsewhere; F32.A Depression, unspecified; E78.5 Hyperlipidemia, unspecified; Z66 Do not resuscitate; N40.1 Benign prostatic hyperplasia with lower urinary tract symptoms; B35.1 Tinea unguium; G47.33 Obstructive sleep apnea (adult) (pediatric); D64.9 Anemia, unspecified; D69.6 Thrombocytopenia, unspecified; L60.2 Onychogryphosis; T36.0X5A Adverse effect of penicillins, initial encounter; Z91.048 Other nonmedicinal substance allergy status; Z88.6 Allergy status to analgesic agent; Z88.8 Allergy status to other drugs, medicaments and biological substances; Z90.49 Acquired absence of other specified parts of digestive tract; Z93.1 Gastrostomy status; Z96.659 Presence of unspecified artificial knee joint; Z98.890 Other specified postprocedural states; Z87.891 Personal history of nicotine dependence; Z79.899 Other long term (current) drug therapy; M20.5X9 Other deformities of toe(s) (acquired), unspecified foot; H91.90 Unspecified hearing loss, unspecified ear; Z86.69 Personal history of other diseases of the nervous system and sense organs
CPT/HCPCS: 36415; 71045; 80048; 80053; 81001; 82140; 82947; 83036; 85025; 87077; 87086; 87186; 93005; 93010; 96372; 96374; 96376; 99285-25; A9270; G0378; J0290; J0696; J1650; J2185; J7050

== ENCOUNTER 2024-09-22 13:17 | Emergency (ER) | payer OTHER ==
[~2024-09-22] VITALS: Ht 167.6 cm; Wt 113.4 kg
[~2024-09-22 13:17] MED LIST changes: +Acetaminophen650 M1 PO; +FT SENNA-S 8.61 EACH PO; +LACT10SY PO; +PRAZ5 PO; +Prinivil10 MG PO; +TRAZ50 PO; +VISBIOME 112.51 EACH PO
[2024-09-22 17:06] LABS: Source, Urine Clean Catch
[2024-09-22 17:27] LABS: Appearance, Urine Hazy (Clear); Bilirubin, Urine Neg (Neg); Blood, Urine 4+ (Neg); Color, Urine Yellow (P-Yellow); Glucose Qualitative, Urine Neg (Neg); Ketones, Urine Neg (Neg); Leukocyte Esterase, Urine 3+ (Neg); Nitrite, Urine Pos (Neg); Protein, Urine 2+ (Neg); Specific Gravity, Urine 1.015 (1.003-1.022); Urobilinogen, Urine NORM (Normal)
[2024-09-22 17:30] LABS: BASOPHILS ABSOLUTE AUTO 0.04 K/mm3 (0.00-0.23); BASOPHILS PERCENT AUTO 1 % (0-2); EOSINOPHILS PERCENT AUTO 5 % (0-6); Hematocrit 36.7 % (37.0-53.0); Hemoglobin 12.3 g/dL (13.5-17.5); IMMATURE GRAN ABSOLUTE AUTO 0.01 K/mm3 (0.00-0.10); IMMATURE GRAN PERCENT AUTO 0 % (0-1); LYMPHOCYTES ABSOLUTE AUTO 1.61 K/mm3 (0.84-5.20); LYMPHOCYTES PERCENT AUTO 28 % (21-46); MONOCYTES ABSOLUTE AUTO 0.42 K/mm3 (0.16-1.47); MONOCYTES PERCENT AUTO 7 % (4-13); Mean Corpuscular HGB 32.9 pg (26.0-34.0); Mean Corpuscular HGB Conc 33.5 g/dL (31.5-36.5); Mean Corpuscular Volume 98 fL (80-100); Mean Platelet Volume 10.3 fL (9.1-12.4); NEUTROPHILS ABSOLUTE AUTO 3.42 K/mm3 (1.96-9.15); NEUTROPHILS PERCENT AUTO 59 % (41-73); Platelet Count 150 K/mm3 (150-400); RDW Coefficient Variation 14.2 % (11.7-14.2); RDW Standard Deviation 51.6 fL (35.1-46.3); Red Blood Cell Count 3.74 M/mm3 (4.30-5.90)
[2024-09-22 17:36] LABS: White Blood Cells, Urine 50-100 /hpf (0-5)
[2024-09-22 17:37] LABS: Amorphous Light (0-Heavy); Bacteria Many /hpf; Squamous Epithelial Cells Few /hpf (Few)
[2024-09-22] MEDS ORDERED: CefTRIAXone Sodium 1,000 MG in NS 100 ML IV ONE (18:15)
[2024-09-22 18:18] LABS: Bun/Creatinine Ratio 21.1 (12.0-20.0); Calcium, Blood 8.9 mg/dL (8.5-10.1); Creatinine, Blood 0.99 mg/dL (0.60-1.20); Potassium, Blood 4.4 mmol/L (3.5-5.5)
[2024-09-22] MEDS ORDERED: CEPH500 PO (19:14)
[2024-09-22 19:17] VITALS: BP 124/76
[2024-09-25] MEDS ORDERED: CEFU250T47 PO (09:04)
== END 2024-09-22 20:07 | disposition home or self-care (01) ==
LOC: ER 13:17
PROVIDERS: Emergency Medicine
DX: T83.511A Infection and inflammatory reaction due to indwelling urethral catheter, initial encounter (principal); R31.0 Gross hematuria; Z87.891 Personal history of nicotine dependence; E11.22 Type 2 diabetes mellitus with diabetic chronic kidney disease; N18.30 Chronic kidney disease, stage 3 unspecified; J44.9 Chronic obstructive pulmonary disease, unspecified; Z88.6 Allergy status to analgesic agent; Z91.048 Other nonmedicinal substance allergy status; Z79.899 Other long term (current) drug therapy; Z79.85 Long-term (current) use of injectable non-insulin antidiabetic drugs; Z79.1 Long term (current) use of non-steroidal anti-inflammatories (NSAID); Z79.83 Long term (current) use of bisphosphonates
CPT/HCPCS: 74177; 80048; 81001; 85025; 87077; 87086; 87186; 96365-59; 99284-25; J0696; Q9967

== ENCOUNTER → 2024-10-30 | Outpatient (CLI) | payer OTHER ==
[~2024-10-30] MED LIST changes: +CEFU250T47 PO
[2024-10-30 16:55] LABS: Source, Urine Clean Catch
[2024-10-30 17:05] LABS: Appearance, Urine Cloudy (Clear); Bilirubin, Urine Neg (Neg); Blood, Urine 5+ (Neg); Glucose Qualitative, Urine Neg (Neg); Ketones, Urine Neg (Neg); Leukocyte Esterase, Urine 3+ (Neg); Nitrite, Urine Neg (Neg); Protein, Urine 3+ (Neg); Urobilinogen, Urine NORM (Normal)
[2024-10-30 17:16] LABS: Color, Urine Pale Yellow (P-Yellow)
[2024-10-30 17:17] LABS: Bacteria Many /hpf; Red Blood Cells, Urine TNTC /hpf (0-2); Squamous Epithelial Cells Rare /hpf (Few); White Blood Cells, Urine TNTC /hpf (0-5)
== END ==
LOC: LAB SHORT 15:00 → LAB 15:00
PROVIDERS: Physician Assistant
DX: N39.0 Urinary tract infection, site not specified (principal)
CPT/HCPCS: 81001; 87086

== ENCOUNTER 2025-02-19 16:45 | Emergency (ER) | payer OTHER ==
[~2025-02-19] VITALS: Ht 167.6 cm; Wt 100.2 kg
[2025-02-19 17:20] LABS: BASOPHILS ABSOLUTE AUTO 0.02 K/mm3 (0.00-0.23); BASOPHILS PERCENT AUTO 0 % (0-2); EOSINOPHILS ABSOLUTE AUTO 0.22 K/mm3 (0.00-0.68); EOSINOPHILS PERCENT AUTO 5 % (0-6); Hematocrit 34.4 % (37.0-53.0); Hemoglobin 11.4 g/dL (13.5-17.5); IMMATURE GRAN ABSOLUTE AUTO 0.01 K/mm3 (0.00-0.10); IMMATURE GRAN PERCENT AUTO 0 % (0-1); LYMPHOCYTES ABSOLUTE AUTO 1.56 K/mm3 (0.84-5.20); LYMPHOCYTES PERCENT AUTO 33 % (21-46); MONOCYTES ABSOLUTE AUTO 0.32 K/mm3 (0.16-1.47); MONOCYTES PERCENT AUTO 7 % (4-13); Mean Corpuscular HGB Conc 33.1 g/dL (31.5-36.5); Mean Corpuscular Volume 95 fL (80-100); NEUTROPHILS ABSOLUTE AUTO 2.61 K/mm3 (1.96-9.15); NEUTROPHILS PERCENT AUTO 55 % (41-73); NRBC ABSOLUTE 0.00 K/mm3 (0.00-0.02); NRBC Auto 0.0 /100 WBC (0.0-0.2); Platelet Count 150 K/mm3 (150-400); RDW Coefficient Variation 14.4 % (11.7-14.2); RDW Standard Deviation 49.9 fL (35.1-46.3)
[2025-02-19 17:43] LABS: Alanine Aminotransfer (ALT/SGP 26.0 U/L (12-78); Albumin, Blood 3.1 g/dL (3.4-5.0); Albumin/Globulin Ratio 0.6 (0.8-1.8); Anion Gap 6.0 mmol/L (3-11); Aspartate Aminotrans (AST/SGOT 47.0 U/L (12-37); Bilirubin, Total 0.6 mg/dL (0.1-1.0); Blood Urea Nitrogen 22.0 mg/dL (8-24); CO2, Blood 27.0 mmol/L (21-32); Calcium, Blood 8.8 mg/dL (8.5-10.1); Chloride, Blood 109.0 mmol/L (98-108); Creatinine, Blood 0.94 mg/dL (0.60-1.20); Globulin, Blood 4.8 g/dL (2.2-4.0); Glucose, Blood 98.0 mg/dL (70-99); Potassium, Blood 4.1 mmol/L (3.5-5.5); Sodium, Blood 138.0 mmol/L (136-145); Total Protein, Blood 7.9 g/dL (6.4-8.2)
[2025-02-19 17:49] LABS: CORONAVIRUS COVID-19 AG Negative (NEGATIVE)
[2025-02-19 20:09] LABS: Source, Urine Foley catheter
[2025-02-19 20:18] LABS: Bilirubin, Urine Neg (Neg); Color, Urine Yellow (P-Yellow); Glucose Qualitative, Urine Neg (Neg); Ketones, Urine Neg (Neg); Leukocyte Esterase, Urine 3+ (Neg); Protein, Urine 3+ (Neg); Specific Gravity, Urine 1.020 (1.003-1.022); Urobilinogen, Urine NORM (Normal)
[2025-02-19 20:27] LABS: White Blood Cells, Urine 50-100 /hpf (0-5)
[2025-02-19 20:41] VITALS: BP 152/66
[2025-02-19] MEDS ORDERED: CefOXitin Sodium 2,000 MG in NS 100 ML IV ONE (21:05)
[2025-02-19] MEDS ORDERED: Macrobid 100 M100 MG PO (21:22)
== END 2025-02-19 23:15 | disposition home or self-care (01) ==
LOC: ER 16:45
PROVIDERS: Emergency Medicine
DX: N39.0 Urinary tract infection, site not specified (principal); E11.22 Type 2 diabetes mellitus with diabetic chronic kidney disease; J44.9 Chronic obstructive pulmonary disease, unspecified; N18.30 Chronic kidney disease, stage 3 unspecified; I12.9 Hypertensive chronic kidney disease with stage 1 through stage 4 chronic kidney disease, or unspecified chronic kidney disease; Z86.73 Personal history of transient ischemic attack (TIA), and cerebral infarction without residual deficits; Z79.899 Other long term (current) drug therapy; Z88.6 Allergy status to analgesic agent; Z88.1 Allergy status to other antibiotic agents; Z88.8 Allergy status to other drugs, medicaments and biological substances
CPT/HCPCS: 71045; 80053; 81001; 85025; 87086; 87428-QW; 96365; 99283-25; J0694

== ENCOUNTER → 2025-03-18 | Outpatient (CLI) | payer OTHER ==
[~2025-03-18] MED LIST changes: +Macrobid 100 M100 MG PO
[2025-03-18 15:26] LABS: Source, Urine Foley catheter
[2025-03-18 16:46] LABS: Bilirubin, Urine Neg (Neg); Color, Urine Yellow (P-Yellow); Glucose Qualitative, Urine Neg (Neg); Ketones, Urine Neg (Neg); Leukocyte Esterase, Urine 3+ (Neg); Protein, Urine 3+ (Neg); Specific Gravity, Urine 1.020 (1.003-1.022); Urobilinogen, Urine NORM (Normal)
[2025-03-18 17:09] LABS: White Blood Cells, Urine 50-100 /hpf (0-5)
== END ==
LOC: LAB 12:30 → LAB SHORT 12:30
PROVIDERS: Physician Assistant
DX: N39.0 Urinary tract infection, site not specified (principal)
CPT/HCPCS: 81001; 87077; 87086; 87186

== ENCOUNTER 2025-04-09 08:52 | Emergency (ER) | payer OTHER ==
[~2025-04-09] VITALS: Ht 177.8 cm; Wt 90.7 kg
[2025-04-09] MEDS ORDERED: NS 1,000 ML IV SCH (09:00)
[2025-04-09 09:12] LABS: BASOPHILS ABSOLUTE AUTO 0.03 K/mm3 (0.00-0.23); BASOPHILS PERCENT AUTO 1 % (0-2); EOSINOPHILS ABSOLUTE AUTO 0.19 K/mm3 (0.00-0.68); EOSINOPHILS PERCENT AUTO 4 % (0-6); Hematocrit 34.1 % (37.0-53.0); Hemoglobin 11.1 g/dL (13.5-17.5); IMMATURE GRAN ABSOLUTE AUTO 0.01 K/mm3 (0.00-0.10); IMMATURE GRAN PERCENT AUTO 0 % (0-1); LYMPHOCYTES ABSOLUTE AUTO 1.24 K/mm3 (0.84-5.20); LYMPHOCYTES PERCENT AUTO 24 % (21-46); MONOCYTES ABSOLUTE AUTO 0.39 K/mm3 (0.16-1.47); MONOCYTES PERCENT AUTO 8 % (4-13); Mean Corpuscular HGB Conc 32.6 g/dL (31.5-36.5); Mean Corpuscular Volume 95 fL (80-100); NEUTROPHILS ABSOLUTE AUTO 3.33 K/mm3 (1.96-9.15); NEUTROPHILS PERCENT AUTO 64 % (41-73); NRBC ABSOLUTE 0.00 K/mm3 (0.00-0.02); NRBC Auto 0.0 /100 WBC (0.0-0.2); Platelet Count 143 K/mm3 (150-400); RDW Coefficient Variation 15.4 % (11.7-14.2); RDW Standard Deviation 54.2 fL (35.1-46.3)
[2025-04-09 09:37] LABS: Alanine Aminotransfer (ALT/SGP 30.0 U/L (12-78); Albumin, Blood 3.0 g/dL (3.4-5.0); Albumin/Globulin Ratio 0.6 (0.8-1.8); Anion Gap 9.0 mmol/L (3-11); Aspartate Aminotrans (AST/SGOT 89.0 U/L (12-37); Bilirubin, Total 0.8 mg/dL (0.1-1.0); Blood Urea Nitrogen 17.0 mg/dL (8-24); CO2, Blood 22.0 mmol/L (21-32); Calcium, Blood 8.9 mg/dL (8.5-10.1); Chloride, Blood 111.0 mmol/L (98-108); Creatinine, Blood 0.97 mg/dL (0.60-1.20); Globulin, Blood 5.2 g/dL (2.2-4.0); Glucose, Blood 103.0 mg/dL (70-99); Magnesium, Blood 2.3 mg/dL (1.6-2.4); Potassium, Blood 4.5 mmol/L (3.5-5.5); Sodium, Blood 137.0 mmol/L (136-145); Total Protein, Blood 8.2 g/dL (6.4-8.2)
[2025-04-09 09:39] LABS: Source, Urine Clean Catch
[2025-04-09 09:44] LABS: Bilirubin, Urine Neg (Neg); Color, Urine Yellow (P-Yellow); Glucose Qualitative, Urine Neg (Neg); Ketones, Urine Neg (Neg); Leukocyte Esterase, Urine 3+ (Neg); Protein, Urine 2+ (Neg); Specific Gravity, Urine 1.020 (1.003-1.022); Urobilinogen, Urine NORM (Normal)
[2025-04-09 09:53] LABS: White Blood Cells, Urine 50-100 /hpf (0-5)
[2025-04-09 15:00] VITALS: BP 182/84
[2025-04-09] MEDS ORDERED: FOSFOMYCIN TROME3 G1 PO (15:46)
[2025-04-09 17:09] LABS: Alpha Feto Protein, Tumor Mkr 2.8 ng/mL (0.0-8.0); Carcinoembryonic Antigen 30.2 ng/mL (0.0-3.0)
[2025-04-09 17:46] LABS: Campylobacter Sp Not Detected (NOT DETECT); E. Coli O157 Not Detected (NOT DETECT); Enteroaggregative E. coli-EAEC Not Detected (NOT DETECT); Enteropathogenic E. coli-EPEC Not Detected (NOT DETECT); Enterotoxigenic E. coli-ETEC Not Detected (NOT DETECT); Salmonella Sp Not Detected (NOT DETECT); Shiga Toxin-prod E. coli-STEC Not Detected (NOT DETECT); Shigella/Enteroin E. coli-EIEC Not Detected (NOT DETECT); Vibrio Sp Not Detected (NOT DETECT)
== END 2025-04-09 16:49 | disposition home or self-care (01) ==
LOC: ER 08:52
PROVIDERS: Student in an Organized Health Care Education/Training Program
DX: N39.0 Urinary tract infection, site not specified (principal); R16.0 Hepatomegaly, not elsewhere classified; K74.60 Unspecified cirrhosis of liver; N20.0 Calculus of kidney; Z88.8 Allergy status to other drugs, medicaments and biological substances; Z79.899 Other long term (current) drug therapy; I10 Essential (primary) hypertension; E78.5 Hyperlipidemia, unspecified; G47.30 Sleep apnea, unspecified; E11.22 Type 2 diabetes mellitus with diabetic chronic kidney disease; N18.30 Chronic kidney disease, stage 3 unspecified; J44.9 Chronic obstructive pulmonary disease, unspecified; Z87.891 Personal history of nicotine dependence; R16.1 Splenomegaly, not elsewhere classified
CPT/HCPCS: 51702; 74177; 80053; 81001; 82105; 82378; 83690; 83735; 85025; 86301; 87077; 87086; 87186; 87324; 87507; 93005; 93010; 99285-25; A9270; J7030; Q9967

== ENCOUNTER 2025-05-09 16:45 | Emergency (ER) | payer OTHER ==
[~2025-05-09] VITALS: Ht 198.1 cm; Wt 103.0 kg
[~2025-05-09 16:45] MED LIST changes: +FOSFOMYCIN TROME3 G1 PO
[2025-05-09 17:19] LABS: BASOPHILS ABSOLUTE AUTO 0.04 K/mm3 (0.00-0.23); BASOPHILS PERCENT AUTO 1 % (0-2); EOSINOPHILS ABSOLUTE AUTO 0.11 K/mm3 (0.00-0.68); EOSINOPHILS PERCENT AUTO 2 % (0-6); Hematocrit 31.7 % (37.0-53.0); Hemoglobin 10.6 g/dL (13.5-17.5); IMMATURE GRAN ABSOLUTE AUTO 0.01 K/mm3 (0.00-0.10); IMMATURE GRAN PERCENT AUTO 0 % (0-1); LYMPHOCYTES ABSOLUTE AUTO 1.31 K/mm3 (0.84-5.20); LYMPHOCYTES PERCENT AUTO 21 % (21-46); MONOCYTES ABSOLUTE AUTO 0.47 K/mm3 (0.16-1.47); MONOCYTES PERCENT AUTO 8 % (4-13); Mean Corpuscular HGB Conc 33.4 g/dL (31.5-36.5); Mean Corpuscular Volume 96 fL (80-100); NEUTROPHILS ABSOLUTE AUTO 4.23 K/mm3 (1.96-9.15); NEUTROPHILS PERCENT AUTO 69 % (41-73); NRBC ABSOLUTE 0.00 K/mm3 (0.00-0.02); NRBC Auto 0.0 /100 WBC (0.0-0.2); Platelet Count 156 K/mm3 (150-400); RDW Coefficient Variation 17.9 % (11.7-14.2); RDW Standard Deviation 61.5 fL (35.1-46.3)
[2025-05-09 17:25] LABS: Alanine Aminotransfer (ALT/SGP 32.0 U/L (12-78); Albumin, Blood 2.4 g/dL (3.4-5.0); Albumin/Globulin Ratio 0.5 (0.8-1.8); Anion Gap 9.0 mmol/L (3-11); Aspartate Aminotrans (AST/SGOT 182.0 U/L (12-37); Bilirubin, Total 2.8 mg/dL (0.1-1.0); Blood Urea Nitrogen 12.0 mg/dL (8-24); CO2, Blood 25.0 mmol/L (21-32); Calcium, Blood 8.4 mg/dL (8.5-10.1); Chloride, Blood 109.0 mmol/L (98-108); Creatinine, Blood 0.88 mg/dL (0.60-1.20); Globulin, Blood 4.4 g/dL (2.2-4.0); Glucose, Blood 92.0 mg/dL (70-99); Potassium, Blood 3.8 mmol/L (3.5-5.5); Sodium, Blood 139.0 mmol/L (136-145); Total Protein, Blood 6.8 g/dL (6.4-8.2)
[2025-05-09 18:39] LABS: Source, Urine Foley catheter
[2025-05-09 18:47] LABS: Glucose Qualitative, Urine Neg (Neg); Ketones, Urine Neg (Neg); Leukocyte Esterase, Urine 3+ (Neg); Protein, Urine 3+ (Neg); Specific Gravity, Urine 1.015 (1.003-1.022); Urobilinogen, Urine 1+ (Normal)
[2025-05-09 19:06] LABS: Bilirubin, Urine 2+ (Neg)
[2025-05-09 19:07] LABS: Color, Urine Amber (P-Yellow); White Blood Cells, Urine 25-50 /hpf (0-5)
[2025-05-09 19:15] VITALS: BP 160/68
[2025-05-09] MEDS ORDERED: DOXY100 PO (19:54)
[2025-05-09] MEDS ORDERED: AMOCLA875 PO (19:54)
[2025-05-13] MEDS ORDERED: CEFU250T47 PO ×2 (10:24)
== END 2025-05-09 21:38 | disposition home or self-care (01) ==
LOC: ER 16:45
PROVIDERS: Student in an Organized Health Care Education/Training Program
DX: J18.9 Pneumonia, unspecified organism (principal); E80.6 Other disorders of bilirubin metabolism; C22.9 Malignant neoplasm of liver, not specified as primary or secondary; I12.9 Hypertensive chronic kidney disease with stage 1 through stage 4 chronic kidney disease, or unspecified chronic kidney disease; E11.22 Type 2 diabetes mellitus with diabetic chronic kidney disease; N18.30 Chronic kidney disease, stage 3 unspecified; J44.9 Chronic obstructive pulmonary disease, unspecified; Z88.8 Allergy status to other drugs, medicaments and biological substances; Z79.899 Other long term (current) drug therapy; Z87.891 Personal history of nicotine dependence
CPT/HCPCS: 51702; 71046; 74177; 80053; 81001; 82140; 83690; 85025; 87077; 87086; 87186; 93005; 93010; 99285-25; A9270; Q9967

== ENCOUNTER 2025-05-23 19:40 | Emergency (ER) | payer OTHER | END 2025-05-23 22:55 | disposition home or self-care (01) | LOC: ER 19:40 | DX: C78.7 Secondary malignant neoplasm of liver and intrahepatic bile duct (principal); C78.00 Secondary malignant neoplasm of unspecified lung; R10.9 Unspecified abdominal pain; I12.9 Hypertensive chronic kidney disease with stage 1 through stage 4 chronic kidney disease, or unspecified chronic kidney disease; E11.22 Type 2 diabetes mellitus with diabetic chronic kidney disease; N18.30 Chronic kidney disease, stage 3 unspecified; E78.5 Hyperlipidemia, unspecified; J44.9 Chronic obstructive pulmonary disease, unspecified; G47.30 Sleep apnea, unspecified; Z86.73 Personal history of transient ischemic attack (TIA), and cerebral infarction without residual deficits; Z87.891 Personal history of nicotine dependence; Z88.6 Allergy status to analgesic agent; Z88.8 Allergy status to other drugs, medicaments and biological substances; Z79.899 Other long term (current) drug therapy ==